=== PATIENT | female | born 1935 | race Caucasian/White ===

== ENCOUNTER → 2017-01-28 | Outpatient (CLI) | payer OTHER, MEDICAID ==
[2015-03-26 19:27] VITALS: BP 136/58
[2017-01-28 11:16] LABS: AMOUNT OF GLUCOSE 75 Grams; EDUCATION SHEET YES
== END ==
LOC: LAB 07:11
PROVIDERS: ATTEND Internal Medicine Cardiovascular Disease
DX: R42 Dizziness and giddiness (principal)
CPT/HCPCS: 36415; 82951; 82952

== ENCOUNTER → 2017-04-22 | Outpatient (CLI) | payer OTHER, MEDICAID ==
[2015-03-26 19:27] VITALS: BP 136/58
--- NOTE | 2017-04-25 16:19 | RAD ---
HISTORY: Dyspnea Study: PA and lateral views of the chest. Comparison: 03/26/2015 Findings: The cardiomediastinal silhouette is normal. No focal consolidations, pleural effusions or pneumothora x. Osseous structures demonstrate no acute abnormality. IMPRESSION: 1. No acute cardiopulmonary process. Reported By:
== END ==
LOC: RAD 11:51
PROVIDERS: ATTEND Nurse Practitioner Family
DX: R06.09 Other forms of dyspnea (principal)
CPT/HCPCS: 71020

== ENCOUNTER → 2017-08-25 | Outpatient (CLI) | payer OTHER, MEDICAID ==
[2015-03-26 19:27] VITALS: BP 136/58
--- NOTE | 2017-08-26 09:03 | MG ---
HISTORY: SCREENING Comparison: 06/02/2016 FINDINGS: Bilateral CC and MLO projections of the right and left breast were obtained. Scattered fibroglandula r tissue is seen to be present. There is stable right upper our nodular focal asymmetry with biopsy c lip. No significant architectural distortion, mass or clustered microcalcifications can be observed t o suggest malignancy. No skin thickening or nipple retraction is appreciated. No pathological lymp hadenopathy can be identified. Benign-appearing calcifications scattered throughout the right and lef t breasts are observed. IMPRESSION: NO RADIOGRAPHIC EVIDENCE OF MALIGNANCY. ACR CATEGORY: 2 - benign findings. FOLLOW-UP EXAM 1 YEAR. Diagnostic CAD was utilized and reviewed. * 0 (ZERO) - ASSESSMENT INCOMPLETE; ADDITIONAL IMAGING IS NEEDED. * 1/1 (ONE) - NEGATIVE. * 2/II (TWO) - BENIGN FINDINGS. * 3/III (THREE) - PROBABLY BENIGN FINDING; SHORT INTERVAL FOLLOW-UP SUGGESTED. * 4/IV (FOUR) - SUSPICIOUS ABNORMALITY; BIOPSY SHOULD BE CONSIDERED. * 5/V - HIGHLY SUSPICIOUS OF MALIGNANCY; BIOPSY SHOULD BE PERFORMED. A NEGATIVE X-RAY REPORT SHOULD NOT DELAY BIOPSY IF A DOMINANT OR CLINICALLY SUSPICIOUS MASS IS PRESENT; 4 TO 8 PERCENT OF CANCERS ARE NOT IDENTIFIED BY X-RAY. A NEGA TIVE REPORT MAY REINFORCE THE CLINICAL IMPRESSION. ADENOSIS AND DENSE BREASTS MAY OBSCURE AN UNDERLY ING NEOPLASM. Reported By:
== END ==
LOC: RAD 12:56
PROVIDERS: ATTEND Internal Medicine
DX: Z12.31 Encounter for screening mammogram for malignant neoplasm of breast (principal)
CPT/HCPCS: 77067

== ENCOUNTER 2022-01-22 14:56 | Observation (INO) ==
--- NOTE | 2022-01-22 17:51 | DR.H&P ---
H&P - History & Physical for Day of: H&P Date: 01/22/22 - Chief Complaint Chief Complaint: FALL LAST PM, CONFUSED, WEAKNESS REPORTED PER FAMILY - History of Present Illness History of Present Illness: PT 86 WF DIRECT ADMIT FROM DR MELENDEZ OFFICE WITH REPORTS PER FAMILY PT HAD A FALL LAST PM AT HOME. EMS WAS CONTACTED TO HELP PT UP. PT REFUSED TO GO TO HOSPITAL FOR EVALUATION. FAMILY REPORTS PT IS VERY CONFUSED, NOT EATING, REFUSING TO TAKE MEDICATION. "NOT ACTING RIGHT" PT HAD HAD INCONTINENCE OF BLADDER. PT HAS PMH OF AFIB, CAD, HTN, OA, HYPOTHYROIDISM. FAMILY IS CONCERNED ABOUT HER BEING HOME ALONE, CONCERNED SHE MAY HAVE HAD A STROKE. - Past Medical History Past Medical History: Anxiety, Arthritis, Coronary Artery Disease, Dyslipidemia, Hypertension, Hypothyroidism - Past Surgical History Surgical History: Hysterectomy - Family History Family Medical History: [place], Coronary Artery Disease, Heart Failure, Sudden Cardiac , Hypertension - Social History Does patient currently use any type of tobacco product: No Have you used tobacco products in the last 12 months: No Type of Tobacco Use: None Does any household member use tobacco: No Alcohol Use: None Drug Use: None Risks, benefits, and alternatives of opioids discussed: No - Medications Home Medications: amoxicillin Allergy (Verified 01/22/22 17:46) clarithromycin [From Biaxin] Allergy (Verified 01/22/22 17:46) - Review of Systems Constitutional: Weakness, Malaise Eyes: No Symptoms Reported ENT: No Symptoms Reported Respiratory: Shortness of Breath Cardiovascular: Edema Gastrointestinal: Other (POOR APPETITE) Genitourinary: Incontinence Musculoskeletal: Back Pain Neurological: Weakness, Confusion - Physical Exam Vital Signs: Blood Pressure [Right Arm] 136/58 Blood Pressure 173/84 Oriented: Person Eyes: Normal Ear: Normal Nose: Normal Throat: Normal Respiratory: RLL Diminished, LLL Diminished Cardiovascular: Irregular, Edema (TRACE BILATERAL LOWER EXTREMITY EDEMA) Tenderness: Normal Skin: Decreased Turgur Musculoskeletal: Right, Left, Back:Lumbar, Motor Deficit Psychiatric: Anxiety Affect: Anxious Speech Pattern: Clear, Appropriate, Inappropriate (REPORT BOTH APPROPRIATE AND INAPPROPRIATE RESPONSES ), Delayed - Assessment/Plan (1) AMS (altered mental status) Status: Acute Plan: ADMIT, CT HEAD ON ADMISSION. CXR, LSPINE XRAY, EKG ON ADMISSION. VERIFY HOME MEDICATION, PT/OT/ST EVALUATION. RESUME HOME MEDICATION. IV ATBX, IV HYDRATION, CASE MANAGEMENT CONSULT. HIGH RISK FALL ALERT, BP CONTROL (2) Urinary tract infection Status: Acute (3) A-fib Status: Acute (4) Falls frequently Status: Acute (5) Muscle weakness Status: Acute (6) Hypertension Status: Acute (7) Hypothyroid Status: Acute (8) Cervical arthritis Status: Acute - Allergies Allergies/Adverse Reactions: Allergies Allergy/AdvReac Type Severity Reaction Status Date / Time amoxicillin Allergy Verified 01/22/22 17:46 clarithromycin [From Biaxin] Allergy Verified 01/22/22 17:46
[2022-01-22 18:15] LABS: BASOPHILS # (AUTO) 0.1 X10^3/uL (0.0-0.1); BASOPHILS % (AUTO) 1.4 % (0.2-1.0); EOSINOPHILS % (AUTO) 0.1 % (0.9-2.9); HEMATOCRIT 37.2 % (36.0-47.0); HEMOGLOBIN 12.4 g/dL (12.0-16.0); LYMPHOCYTES # (AUTO) 1.4 X10^3/uL (1.3-2.9); MEAN CORPUSCULAR HEMOGLOBIN 28.7 pg (27.0-34.0); MEAN CORPUSCULAR HGB CONC 33.2 g/dL (33.0-35.0); MEAN CORPUSCULAR VOLUME 86.5 fL (80.0-100.0); MEAN PLATELET VOLUME 7.8 fL (7.4-11.0); MONOCYTES # (AUTO) 0.9 x10^3/uL (0.3-0.8); NEUTROPHILS % (AUTO) 46.5 % (42.0-75.0); RED CELL DISTRIBUTION WIDTH 14.8 % (11.6-16.5); WHITE BLOOD COUNT 4.4 X10^3/uL (3.6-10.0)
[2022-01-22 18:27] LABS: PLATELET MORPHOLOGY COMMENT NORMAL (NORMAL)
[2022-01-22 18:31] LABS: ALANINE AMINOTRANSFERASE 35 Units/L (12-78); ALBUMIN 3.9 g/dL (3.4-5.0); ALKALINE PHOSPHATASE 62 Units/L (46-116); ASPARTATE AMINO TRANSFERASE 39 Units/L (15-37); BLOOD UREA NITROGEN 18 mg/dL (7-18); CALCIUM 8.8 mg/dL (8.5-10.1); CARBON DIOXIDE 28.4 mmol/L (21-32); CHLORIDE 95 mmol/L (98-107); CREATININE 0.74 mg/dL (0.55-1.02); FREE T4 (FREE THYROXINE) 1.46 ng/dL (0.76-1.46); MAGNESIUM 1.9 mg/dL (1.7-2.9); SODIUM 134 mmol/L (136-145); TOTAL PROTEIN 7.7 g/dL (6.4-8.2); TSH (3RD GENERATION) 1.007 uIU/mL (0.358-3.74); eGFR NON BLACK RACES > 60 (>60)
--- NOTE | 2022-01-22 18:33 | CT ---
BRAIN W/O CONCLINICAL INDICATION: AMS, WEAKNESS, FALLSTECHNIQUE: Images were obtained through the head per standard CT protocol. Multiplanar reformatted images were generated from the CT dataset. Dose reduction techniques including Automated Exposure Control (AEC) and adjustment of mA and kV were utlized.COMPARISON:NoneFINDINGS:Diffuse patchy and confluent periventricular and subcortical hypoattenuation with associated volume loss . There is no evidence of acute infarction, intracranial hemorrhage, mass or mass effect, or abnormal extra-axial collection . The density of the larger dural venous sinuses is normal. Age-related, ex-vacuo dilatation of the ventricles and sulci . The skull base and calvarium are normal . The included paranasal sinuses and mastoid air cells are predominantly clear .IMPRESSION:1. No acute intracranial abnormality. Chronic microangiopathic changes and ex vacuo dilatation of the ventricles and sulci.[]Electronically signed by: KELI ARMENTA (Jan 22, 2022 18:31:59)
--- NOTE | 2022-01-22 18:45 | RAD ---
HISTORYFALL, LOWER BACK PAIN, LEG WEAKNESS Relevant Clinical InformationSTUDYLUMBAR SPINE, AP/LATCOMPARISONFINDINGSThere is approximately 20 degrees of levoscoliosis in the lumbar spine. There is right lateral ceases of L2 on L3 and left lateral listhesis of L3 on L4 and L4 on L5. There is grade 1 retrolisthesis of L3 on L4. There is no vertebral compression deformity. Disc degeneration is most severe at L2-L3 and L3-L4. There is multilevel facet hypertrophy. There is no pars defect. There is heavy atherosclerosis. There is SI joint sclerosis.IMPRESSIONLevoscoliosis, spondylolisthesis, and degeneration.Electronically signed by: Lencho Patel (Jan 22, 2022 18:43:28)
--- NOTE | 2022-01-22 18:48 | RAD ---
CHEST, 1 VIEWHISTORY: AMS, CAD, CHFStudy: AP view of the chest.Comparison:NoneFindings:The cardiomediastinal silhouette is normal. No focal consolidations, pleural effusions or pneumothorax. Osseous structures demonstrate no acute abnormality. Bilateral hyperexpansion and interstitial prominence.IMPRESSION:1. No acute cardiopulmonary process.2. Findings of COPD.Electronically signed by: KELI ARMENTA (Jan 22, 2022 18:47:19)
[2022-01-22] MEDS: ROCEPHIN VIAL 1 GRAM 1 G in NS 100 ML IV 100 ML IV SCH (21:33)
[2022-01-22] MEDS: ELIQUIS PO SCH (21:34)
[2022-01-22 22:56] VITALS: BMI 23.8
[2022-01-23] MEDS ORDERED: CATAPRES TAB 0.1 MG PO ONE (03:25)
[2022-01-23] MEDS ORDERED: CATAPRES TAB 0.1 MG ONE (03:31)
[2022-01-23 06:03] LABS: BASOPHILS % (AUTO) 0.4 % (0.2-1.0); HEMATOCRIT 33.2 % (36.0-47.0); HEMOGLOBIN 11.2 g/dL (12.0-16.0); LYMPHOCYTES % (AUTO) 35.5 % (21.0-51.0); MEAN CORPUSCULAR HEMOGLOBIN 29.1 pg (27.0-34.0); MEAN CORPUSCULAR HGB CONC 33.8 g/dL (33.0-35.0); MEAN CORPUSCULAR VOLUME 86.1 fL (80.0-100.0); MONOCYTES # (AUTO) 0.6 x10^3/uL (0.3-0.8); MONOCYTES % (AUTO) 21.7 % (0.0-13.0); NEUTROPHILS # (AUTO) 1.2 x10^3/uL (2.2-4.8); NEUTROPHILS % (AUTO) 42.4 % (42.0-75.0); RED BLOOD COUNT 3.85 X10^6/uL (3.5-5.4); RED CELL DISTRIBUTION WIDTH 15.1 % (11.6-16.5); WHITE BLOOD COUNT 2.8 X10^3/uL (3.6-10.0)
[2022-01-23] MEDS: SYNTHROID 112 mcg TAB PO SCH (06:04)
[2022-01-23 06:16] LABS: ALANINE AMINOTRANSFERASE 30 Units/L (12-78); ALBUMIN 3.3 g/dL (3.4-5.0); ALKALINE PHOSPHATASE 53 Units/L (46-116); ASPARTATE AMINO TRANSFERASE 39 Units/L (15-37); BLOOD UREA NITROGEN 16 mg/dL (7-18); CALCIUM 8.3 mg/dL (8.5-10.1); CARBON DIOXIDE 27.1 mmol/L (21-32); CHLORIDE 99 mmol/L (98-107); COR CA(FOR HYPOALB) 8.9 mg/dL (8.5-10.1); CREATININE 0.52 mg/dL (0.55-1.02); MAGNESIUM 1.7 mg/dL (1.7-2.9); SODIUM 136 mmol/L (136-145); TOTAL PROTEIN 6.6 g/dL (6.4-8.2); eGFR NON BLACK RACES > 60 (>60)
[2022-01-23 06:21] LABS: BILIRUBIN,URINE NEGATIVE (NEGATIVE); BLOOD/HEMOGLOBIN,URINE 2+ (NEGATIVE); GLUCOSE, URINE NEGATIVE (NEGATIVE); KETONES,URINE NEGATIVE (NEGATIVE); LEUKOCYTE ESTERASE ,URINE 1+ (NEGATIVE); NITRITES,URINE NEGATIVE (NEGATIVE); PROTEIN,URINE 1+ (NEGATIVE); UROBILINOGEN,URINE NORMAL (NORMAL)
[2022-01-23 06:35] LABS: BAND NEUTROPHILS % 6 % (0-10)
[2022-01-23 06:36] LABS: PLATELET MORPHOLOGY COMMENT NORMAL (NORMAL)
[2022-01-23] MEDS ORDERED: K-RIDER 10 MEQ/NS 100 ML 10 MEQ/100 ML BAG IV PRN (06:40)
[2022-01-23] MEDS ORDERED: KLOR-CON PO PRN (06:40)
[2022-01-23] MEDS ORDERED: POTASSIUM CHLORIDE LIQ 20 MEQ UDC PO PRN (06:40)
[2022-01-23] MEDS ORDERED: POTASSIUM CHL 40 MEQ/NS 0.45% 500 ML IV PRN (06:40)
[2022-01-23] MEDS ORDERED: MICRO K EXTEN CAP 10 MEQ PO PRN (06:40)
[2022-01-23] MEDS ORDERED: POTASSIUM CHL 60 MEQ/NS 0.45% 500 ML IV PRN (06:40)
[2022-01-23 06:48] LABS: APPEARANCE,URINE CLEAR (CLEAR); BACTERIA,URINE TRACE /HPF (NEGATIVE); COLOR,URINE YELLOW (YELLOW); RBC,URINE 0-2 /HPF (0-3); SQUAMOUS EPITHELIAL CELL,UR FEW /HPF (NEGATIVE)
[2022-01-23] MEDS: ELIQUIS PO SCH ×2 (08:36→21:22)
[2022-01-23] MEDS: K-DUR TAB 20 MEQ PO PRN (08:36)
[2022-01-23] MEDS: TOPROL XL PO SCH (08:36)
[2022-01-23] MEDS: BENICAR TAB 40 MG PO SCH (08:36)
[2022-01-23] MEDS: ROCEPHIN VIAL 1 GRAM 1 G in NS 100 ML IV 100 ML IV SCH (08:37)
[2022-01-23] MEDS ORDERED: TYLENOL 325 MG TAB PO PRN (18:35)
[2022-01-24 05:22] LABS: BASOPHILS % (AUTO) 0.4 % (0.2-1.0); EOSINOPHILS % (AUTO) 0.2 % (0.9-2.9); HEMATOCRIT 35.2 % (36.0-47.0); HEMOGLOBIN 11.9 g/dL (12.0-16.0); LYMPHOCYTES # (AUTO) 1.7 X10^3/uL (1.3-2.9); LYMPHOCYTES % (AUTO) 40.7 % (21.0-51.0); MEAN CORPUSCULAR HEMOGLOBIN 28.9 pg (27.0-34.0); MEAN CORPUSCULAR HGB CONC 33.7 g/dL (33.0-35.0); MEAN CORPUSCULAR VOLUME 85.5 fL (80.0-100.0); MEAN PLATELET VOLUME 8.1 fL (7.4-11.0); MONOCYTES # (AUTO) 0.7 x10^3/uL (0.3-0.8); MONOCYTES % (AUTO) 15.8 % (0.0-13.0); NEUTROPHILS # (AUTO) 1.8 x10^3/uL (2.2-4.8); NEUTROPHILS % (AUTO) 42.9 % (42.0-75.0); RED BLOOD COUNT 4.11 X10^6/uL (3.5-5.4); RED CELL DISTRIBUTION WIDTH 14.8 % (11.6-16.5); WHITE BLOOD COUNT 4.2 X10^3/uL (3.6-10.0)
[2022-01-24 05:44] LABS: ALANINE AMINOTRANSFERASE 34 Units/L (12-78); ALBUMIN 3.4 g/dL (3.4-5.0); ALKALINE PHOSPHATASE 52 Units/L (46-116); ASPARTATE AMINO TRANSFERASE 40 Units/L (15-37); BLOOD UREA NITROGEN 15 mg/dL (7-18); CALCIUM 8.2 mg/dL (8.5-10.1); CARBON DIOXIDE 27.1 mmol/L (21-32); CHLORIDE 99 mmol/L (98-107); CREATININE 0.64 mg/dL (0.55-1.02); MAGNESIUM 1.6 mg/dL (1.7-2.9); SODIUM 134 mmol/L (136-145); TOTAL PROTEIN 6.7 g/dL (6.4-8.2); eGFR NON BLACK RACES > 60 (>60)
[2022-01-24] MEDS: SYNTHROID 112 mcg TAB PO SCH (06:28)
[2022-01-24] MEDS: K-DUR TAB 20 MEQ PO PRN (06:29)
[2022-01-24] MEDS ORDERED: NS 100 ML IV 100 ML ONE (07:43)
[2022-01-24] MEDS: ELIQUIS PO SCH ×2 (07:59→21:02)
[2022-01-24] MEDS: TOPROL XL PO SCH (07:59)
[2022-01-24] MEDS: ROCEPHIN VIAL 1 GRAM 1 G in NS 100 ML IV 100 ML IV SCH (07:59)
[2022-01-24] MEDS: BENICAR TAB 40 MG PO SCH (07:59)
[2022-01-24] MEDS: MAGNESIUM SULFATE 1 GRAM/100 mL PREMIX 1 G/100 ML BAG IV PRN ×2 (08:28→11:01)
--- NOTE | 2022-01-24 11:30 | PCM.PROG ---
Progress Note Progress Note for Day of Date of Exam: 01/24/22 Subjective Subjective: Patient seen at bedside, no events overnight. She states she feels better. She has been admitted for UTI, falls and AMS. Patient is awake and alert this morning. She has been ambulating with assistance. Denies N/V/D. Labs/imaging reviewed: Mag 1.[address]-brain: chronic changes, no acute process CXR: no infection Lumbar XR: DDD Plan: continue Rocephin, PT/OT as tolerated. Replace mag as per protocol. Continue current medications. Follow urine Cx. Fall precautions. Check anemia panel. Monitor AM labs/imaging. Past Medical Family Social History Allergies: Allergies amoxicillin Allergy (Verified 01/22/22 17:46) clarithromycin [From Biaxin] Allergy (Verified 01/22/22 17:46) Vital Signs and I&O's Vital Signs: Temperature 98.2 F Pulse Rate [Left Radial] 79 Respiratory Rate 18 Blood Pressure [Right Arm] 131/75 Blood Pressure 173/84 O2 Sat by Pulse Oximetry 97 Intake and Output: Intake & Output 01/21/22 01/22/22 01/23/22 01/24/22 23:59 23:59 23:59 23:59 Intake Total 350 / 350 1300 / 1300 150 / 150 Balance 350 / 350 1300 / 1300 150 / 150 Physical Exam Oriented: Person Eyes: Normal Ear: Normal Nose: Normal Throat: Normal Cardiovascular: Irregular and Edema (TRACE BILATERAL LOWER EXTREMITY EDEMA) Tenderness: Normal Skin: Decreased Turgur Musculoskeletal: Right, Left, Back:Lumbar and Motor Deficit Psychiatric: Normal Mood Description: Calm Affect: Normal Speech Pattern: Clear Laboratory and Diagnostics Result Diagrams: 01/24/22 04:50 01/24/22 04:50 Labs: Laboratory WBC 4.2 X10^3/uL (3.6-10.0) 01/24/22 04:50 RBC 4.11 X10^6/uL (3.5-5.4) 01/24/22 04:50 Hgb 11.9 g/dL (12.0-16.0) L 01/24/22 04:50 Hct 35.2 % (36.0-47.0) L 01/24/22 04:50 MCV 85.5 fL (80.0-100.0) 01/24/22 04:50 MCH 28.9 pg (27.0-34.0) 01/24/22 04:50 MCHC 33.7 g/dL (33.0-35.0) 01/24/22 04:50 RDW 14.8 % (11.6-16.5) 01/24/22 04:50 Plt Count 263 X10^3/uL (150.0-450.0) 01/24/22 04:50 Plt Count Comment Adequate (ADEQUATE) 01/23/22 05:00 MPV 8.1 fL (7.4-11.0) 01/24/22 04:50 Neut % (Auto) 42.9 % (42.0-75.0) 01/24/22 04:50 Lymph % (Auto) 40.7 % (21.0-51.0) 01/24/22 04:50 [place] % (Auto) 15.8 % (0.0-13.0) H 01/24/22 04:50 Eos % (Auto) 0.2 % (0.9-2.9) L 01/24/22 04:50 Baso % (Auto) 0.4 % (0.2-1.0) 01/24/22 04:50 Neut # (Auto) 1.8 x10^3/uL (2.2-4.8) L 01/24/22 04:50 Lymph # (Auto) 1.7 X10^3/uL (1.3-2.9) 01/24/22 04:50 [place] # (Auto) 0.7 x10^3/uL (0.3-0.8) 01/24/22 04:50 Eos # (Auto) 0.0 x10^3/uL (0.0-0.2) 01/24/22 04:50 Baso # (Auto) 0.0 X10^3/uL (0.0-0.1) 01/24/22 04:50 Absolute Nucleated RBC 0.1 /100WBC 01/24/22 04:50 Total Counted 100 01/23/22 05:00 Neutrophils % (Manual) 43 % (39-76) 01/23/22 05:00 Band Neutrophils % 6 % (0-10) 01/23/22 05:00 Lymphocytes % (Manual) 29 % (13-43) 01/23/22 05:00 Monocytes % (Manual) 22 % (4-9) H 01/23/22 05:00 Plt Morphology Comment Normal (NORMAL) 01/23/22 05:00 RBC Morphology Normal (NORMAL) 01/23/22 05:00 PT 15.5 SECONDS (11.8-14.3) 01/22/22 17:57 INR Target Range - 01/22/22 17:57 INR 1.27 (0.8-1.3) 01/22/22 17:57 Sodium 134 mmol/L (136-145) L 01/24/22 04:50 Corrected Sodium TNP 01/24/22 04:50 Potassium 3.8 mmol/L (3.5-5.1) 01/24/22 04:50 Chloride 99 mmol/L (98-107) 01/24/22 04:50 Carbon Dioxide 27.1 mmol/L (21-32) 01/24/22 04:50 BUN 15 mg/dL (7-18) 01/24/22 04:50 Creatinine 0.64 mg/dL (0.55-1.02) 01/24/22 04:50 Est GFR (MDRD) Af Amer > 60 (>60) 01/24/22 04:50 Est GFR (MDRD) Non-Af > 60 (>60) 01/24/22 04:50 Glucose 91 mg/dL (65-99) 01/24/22 04:50 Calcium 8.2 mg/dL (8.5-10.1) L 01/24/22 04:50 Corrected Calcium TNP 01/24/22 04:50 Magnesium 1.6 mg/dL (1.7-2.9) L 01/24/22 04:50 Total Bilirubin 0.30 mg/dL (0.2-1.0) 01/24/22 04:50 AST 40 Units/L (15-37) H 01/24/22 04:50 ALT 34 Units/L (12-78) 01/24/22 04:50 Alkaline Phosphatase 52 Units/L (46-116) 01/24/22 04:50 Total Protein 6.7 g/dL (6.4-8.2) 01/24/22 04:50 Albumin 3.4 g/dL (3.4-5.0) 01/24/22 04:50 Globulin 3.3 g/dL (2.5-4.5) 01/24/22 04:50 Albumin/Globulin Ratio 1.0 Ratio (1.1-2.1) L 01/24/22 04:50 Free T4 1.46 ng/dL (0.76-1.46) 01/22/22 17:57 TSH 3rd Generation 1.007 uIU/mL (0.358-3.74) 01/22/22 17:57 Specimen Type Clean catch urine 01/23/22 06:00 Urine Color Yellow (YELLOW) 01/23/22 06:00 Urine Appearance Clear (CLEAR) 01/23/22 06:00 Urine pH 6.0 (5.0 - 8.0) 01/23/22 06:00 Ur Specific [place] 1.015 (1.000-1.030) 01/23/22 06:00 Urine Protein 1+ (NEGATIVE) 01/23/22 06:00 Urine Glucose (UA) Negative (NEGATIVE) 01/23/22 06:00 Urine Ketones Negative (NEGATIVE) 01/23/22 06:00 Urine Blood 2+ (NEGATIVE) 01/23/22 06:00 Urine Nitrite Negative (NEGATIVE) 01/23/22 06:00 Urine Bilirubin Negative (NEGATIVE) 01/23/22 06:00 Urine Urobilinogen Normal (NORMAL) 01/23/22 06:00 Ur Leukocyte Esterase 1+ (NEGATIVE) 01/23/22 06:00 Urine RBC 0-2 /HPF (0-3) 01/23/22 06:00 Urine WBC 0-2 /HPF (0-5) 01/23/22 06:00 Ur Squamous Epith Cells Few /HPF (NEGATIVE) 01/23/22 06:00 Urine Bacteria Trace /HPF (NEGATIVE) 01/23/22 06:00 Urine Mucus Few /HPF (NEGATIVE) 01/23/22 06:00 Ur Culture Indicated? Yes/culture set up 01/23/22 06:00 Urine Opiates Screen Negative (NEG=<300) 01/23/22 06:00 Urine Methadone Screen Negative (NEG=<300) 01/23/22 06:00 Ur Barbiturates Screen Negative (NEG=<200) 01/23/22 06:00 Ur Phencyclidine Scrn Negative (NEG=<25) 01/23/22 06:00 Ur Amphetamines Screen Negative (NEG=<1000) 01/23/22 06:00 U Benzodiazepines Scrn Negative (NEG=<200) 01/23/22 06:00 Urine Cocaine Screen Negative (NEG=<300) 01/23/22 06:00 U Marijuana (THC) Screen Negative (NEG=<50) 01/23/22 06:00 Plan (1) AMS (altered mental status): Status: Acute (2) Urinary tract infection: Status: Acute (3) A-fib: Status: Acute (4) Hypomagnesemia: Status: Acute (5) Hyponatremia: Status: Active (6) Dehydration: Status: Active (7) Anemia: Status: Acute (8) Falls frequently: Status: Acute (9) Muscle weakness: Status: Acute (10) Hypertension: Status: Acute (11) Hypothyroid: Status: Acute (12) Cervical arthritis: Status: Acute (13) CAD (coronary artery disease): Status: Acute
[2022-01-24 12:19] LABS: IRON 41 ug/dL (50-175)
[2022-01-25 05:11] LABS: BLOOD UREA NITROGEN 13 mg/dL (7-18); CALCIUM 8.1 mg/dL (8.5-10.1); CARBON DIOXIDE 28.3 mmol/L (21-32); CHLORIDE 98 mmol/L (98-107); CREATININE 0.58 mg/dL (0.55-1.02); SODIUM 134 mmol/L (136-145); eGFR NON BLACK RACES > 60 (>60)
[2022-01-25 05:13] LABS: BASOPHILS % (AUTO) 0.5 % (0.2-1.0); EOSINOPHILS % (AUTO) 0.5 % (0.9-2.9); HEMATOCRIT 32.4 % (36.0-47.0); HEMOGLOBIN 10.9 g/dL (12.0-16.0); LYMPHOCYTES # (AUTO) 1.4 X10^3/uL (1.3-2.9); LYMPHOCYTES % (AUTO) 41.6 % (21.0-51.0); MEAN CORPUSCULAR HEMOGLOBIN 28.8 pg (27.0-34.0); MEAN CORPUSCULAR HGB CONC 33.6 g/dL (33.0-35.0); MEAN CORPUSCULAR VOLUME 85.8 fL (80.0-100.0); MONOCYTES # (AUTO) 0.5 x10^3/uL (0.3-0.8); MONOCYTES % (AUTO) 15.2 % (0.0-13.0); NEUTROPHILS # (AUTO) 1.4 x10^3/uL (2.2-4.8); NEUTROPHILS % (AUTO) 42.2 % (42.0-75.0); RED BLOOD COUNT 3.78 X10^6/uL (3.5-5.4); RED CELL DISTRIBUTION WIDTH 15.1 % (11.6-16.5); WHITE BLOOD COUNT 3.4 X10^3/uL (3.6-10.0)
[2022-01-25] MEDS: SYNTHROID 112 mcg TAB PO SCH (06:06)
[2022-01-25] MEDS: K-DUR TAB 20 MEQ PO PRN (06:07)
[2022-01-25] MEDS: MAGNESIUM SULFATE 1 GRAM/100 mL PREMIX 1 G/100 ML BAG IV PRN ×2 (06:07→09:44)
[2022-01-25] MEDS: BENICAR TAB 40 MG PO SCH (08:28)
[2022-01-25] MEDS: TOPROL XL PO SCH (08:28)
[2022-01-25] MEDS: ELIQUIS PO SCH ×2 (08:28→19:59)
[2022-01-25] MEDS: ROCEPHIN VIAL 1 GRAM 1 G in NS 100 ML IV 100 ML IV SCH (09:07)
--- NOTE | 2022-01-25 11:16 | PCM.PROG ---
Progress Note Progress Note for Day of Date of Exam: 01/25/22 Subjective Subjective: Patient seen at bedside, no events overnight. She states she feels better. Patient's daughter tested positive for COVID so patient was swabbed yesterday and also tested positive. Denies any URI symptoms, no N/V/D. She states she feels ok. She has been admitted for UTI, falls and AMS. Patient is awake and alert this morning. She has been ambulating with assistance. Labs/imaging reviewed: Mag 1.8 Hgb 10.9 COVID-19: positive CT-brain: chronic changes, no acute process CXR: no infection Lumbar XR: DDD Urine Cx: no growth Plan: continue Rocephin, PT/OT as tolerated. Continue supportive care for covid infection, isolation protocol. Continue current medications. Follow urine Cx. Fall precautions. Monitor AM labs/imaging. Past Medical Family Social History Allergies: Allergies amoxicillin Allergy (Verified 01/22/22 17:46) clarithromycin [From Biaxin] Allergy (Verified 01/22/22 17:46) Vital Signs and I&O's Vital Signs: Temperature 98.0 F Pulse Rate [Left Radial] 64 Respiratory Rate 20 Blood Pressure [Right Arm] 165/71 Blood Pressure 173/84 O2 Sat by Pulse Oximetry 97 Intake and Output: Intake & Output 01/22/22 01/23/22 01/24/22 01/25/22 23:59 23:59 23:59 23:59 Intake Total 350 / 350 1300 / 1300 1700 / 1700 500 / 500 Balance 350 / 350 1300 / 1300 1700 / 1700 500 / 500 Physical Exam Oriented: Person Eyes: Normal Ear: Normal Nose: Normal Throat: Normal Cardiovascular: Irregular and Edema (TRACE BILATERAL LOWER EXTREMITY EDEMA) Tenderness: Normal Skin: Decreased Turgur Musculoskeletal: Right, Left, Back:Lumbar and Motor Deficit Psychiatric: Normal Mood Description: Calm Affect: Normal Speech Pattern: Clear Laboratory and Diagnostics Result Diagrams: 01/25/22 03:51 01/25/22 03:51 Labs: 01/24/22 15:00 Urine,Clean Catch Urine Culture - Preliminary Laboratory WBC 3.4 X10^3/uL (3.6-10.0) L 01/25/22 03:51 RBC 3.78 X10^6/uL (3.5-5.4) 01/25/22 03:51 Hgb 10.9 g/dL (12.0-16.0) L 01/25/22 03:51 Hct 32.4 % (36.0-47.0) L 01/25/22 03:51 MCV 85.8 fL (80.0-100.0) 01/25/22 03:51 MCH 28.8 pg (27.0-34.0) 01/25/22 03:51 MCHC 33.6 g/dL (33.0-35.0) 01/25/22 03:51 RDW 15.1 % (11.6-16.5) 01/25/22 03:51 Plt Count 243 X10^3/uL (150.0-450.0) 01/25/22 03:51 Plt Count Comment Adequate (ADEQUATE) 01/23/22 05:00 MPV 8.0 fL (7.4-11.0) 01/25/22 03:51 Neut % (Auto) 42.2 % (42.0-75.0) 01/25/22 03:51 Lymph % (Auto) 41.6 % (21.0-51.0) 01/25/22 03:51 [place] % (Auto) 15.2 % (0.0-13.0) H 01/25/22 03:51 Eos % (Auto) 0.5 % (0.9-2.9) L 01/25/22 03:51 Baso % (Auto) 0.5 % (0.2-1.0) 01/25/22 03:51 Neut # (Auto) 1.4 x10^3/uL (2.2-4.8) L 01/25/22 03:51 Lymph # (Auto) 1.4 X10^3/uL (1.3-2.9) 01/25/22 03:51 [place] # (Auto) 0.5 x10^3/uL (0.3-0.8) 01/25/22 03:51 Eos # (Auto) 0.0 x10^3/uL (0.0-0.2) 01/25/22 03:51 Baso # (Auto) 0.0 X10^3/uL (0.0-0.1) 01/25/22 03:51 Absolute Nucleated RBC 0.1 /100WBC 01/25/22 03:51 Total Counted 100 01/23/22 05:00 Neutrophils % (Manual) 43 % (39-76) 01/23/22 05:00 Band Neutrophils % 6 % (0-10) 01/23/22 05:00 Lymphocytes % (Manual) 29 % (13-43) 01/23/22 05:00 Monocytes % (Manual) 22 % (4-9) H 01/23/22 05:00 Plt Morphology Comment Normal (NORMAL) 01/23/22 05:00 RBC Morphology Normal (NORMAL) 01/23/22 05:00 PT 15.5 SECONDS (11.8-14.3) 01/22/22 17:57 INR Target Range - 01/22/22 17:57 INR 1.27 (0.8-1.3) 01/22/22 17:57 Sodium 134 mmol/L (136-145) L 01/25/22 03:51 Corrected Sodium TNP 01/25/22 03:51 Potassium 3.7 mmol/L (3.5-5.1) 01/25/22 03:51 Chloride 98 mmol/L (98-107) 01/25/22 03:51 Carbon Dioxide 28.3 mmol/L (21-32) 01/25/22 03:51 BUN 13 mg/dL (7-18) 01/25/22 03:51 Creatinine 0.58 mg/dL (0.55-1.02) 01/25/22 03:51 Est GFR (MDRD) Af Amer > 60 (>60) 01/25/22 03:51 Est GFR (MDRD) Non-Af > 60 (>60) 01/25/22 03:51 Glucose 80 mg/dL (65-99) 01/25/22 03:51 Calcium 8.1 mg/dL (8.5-10.1) L 01/25/22 03:51 Corrected Calcium TNP 01/24/22 04:50 Magnesium 1.8 mg/dL (1.7-2.9) 01/25/22 03:51 Iron 41 ug/dL (50-175) L 01/24/22 04:50 Transferrin 226 mg/dL (202-364) 01/24/22 04:50 Ferritin 216 ng/mL (8-252) 01/24/22 04:50 Total Bilirubin 0.30 mg/dL (0.2-1.0) 01/24/22 04:50 AST 40 Units/L (15-37) H 01/24/22 04:50 ALT 34 Units/L (12-78) 01/24/22 04:50 Alkaline Phosphatase 52 Units/L (46-116) 01/24/22 04:50 Total Protein 6.7 g/dL (6.4-8.2) 01/24/22 04:50 Albumin 3.4 g/dL (3.4-5.0) 01/24/22 04:50 Globulin 3.3 g/dL (2.5-4.5) 01/24/22 04:50 Albumin/Globulin Ratio 1.0 Ratio (1.1-2.1) L 01/24/22 04:50 Vitamin B12 1329 pg/mL (193-986) H 01/24/22 04:50 Folate > 20.0 ng/mL (>8.6) 01/24/22 04:50 Free T4 1.46 ng/dL (0.76-1.46) 01/22/22 17:57 TSH 3rd Generation 1.007 uIU/mL (0.358-3.74) 01/22/22 17:57 Specimen Type Clean catch urine 01/23/22 06:00 Urine Color Yellow (YELLOW) 01/23/22 06:00 Urine Appearance Clear (CLEAR) 01/23/22 06:00 Urine pH 6.0 (5.0 - 8.0) 01/23/22 06:00 Ur Specific [place] 1.015 (1.000-1.030) 01/23/22 06:00 Urine Protein 1+ (NEGATIVE) 01/23/22 06:00 Urine Glucose (UA) Negative (NEGATIVE) 01/23/22 06:00 Urine Ketones Negative (NEGATIVE) 01/23/22 06:00 Urine Blood 2+ (NEGATIVE) 01/23/22 06:00 Urine Nitrite Negative (NEGATIVE) 01/23/22 06:00 Urine Bilirubin Negative (NEGATIVE) 01/23/22 06:00 Urine Urobilinogen Normal (NORMAL) 01/23/22 06:00 Ur Leukocyte Esterase 1+ (NEGATIVE) 01/23/22 06:00 Urine RBC 0-2 /HPF (0-3) 01/23/22 06:00 Urine WBC 0-2 /HPF (0-5) 01/23/22 06:00 Ur Squamous Epith Cells Few /HPF (NEGATIVE) 01/23/22 06:00 Urine Bacteria Trace /HPF (NEGATIVE) 01/23/22 06:00 Urine Mucus Few /HPF (NEGATIVE) 01/23/22 06:00 Ur Culture Indicated? Yes/culture set up 01/23/22 06:00 Urine Opiates Screen Negative (NEG=<300) 01/23/22 06:00 Urine Methadone Screen Negative (NEG=<300) 01/23/22 06:00 Ur Barbiturates Screen Negative (NEG=<200) 01/23/22 06:00 Ur Phencyclidine Scrn Negative (NEG=<25) 01/23/22 06:00 Ur Amphetamines Screen Negative (NEG=<1000) 01/23/22 06:00 U Benzodiazepines Scrn Negative (NEG=<200) 01/23/22 06:00 Urine Cocaine Screen Negative (NEG=<300) 01/23/22 06:00 U Marijuana (THC) Screen Negative (NEG=<50) 01/23/22 06:00 SARS-CoV-2 (PCR) Positive (NEGATIVE) A 01/24/22 16:45 Plan (1) AMS (altered mental status): Status: Acute (2) COVID-19: Status: Acute (3) Urinary tract infection: Status: Acute (4) A-fib: Status: Acute (5) Hypomagnesemia: Status: Acute (6) Hyponatremia: Status: Active (7) Dehydration: Status: Active (8) Anemia: Status: Acute (9) Falls frequently: Status: Acute (10) Muscle weakness: Status: Acute (11) Hypertension: Status: Acute (12) Hypothyroid: Status: Acute (13) Cervical arthritis: Status: Acute (14) CAD (coronary artery disease): Status: Acute
[2022-01-26 04:38] LABS: BASOPHILS % (AUTO) 0.6 % (0.2-1.0); EOSINOPHILS % (AUTO) 0.3 % (0.9-2.9); HEMATOCRIT 33.7 % (36.0-47.0); HEMOGLOBIN 11.2 g/dL (12.0-16.0); LYMPHOCYTES # (AUTO) 1.5 X10^3/uL (1.3-2.9); LYMPHOCYTES % (AUTO) 33.8 % (21.0-51.0); MEAN CORPUSCULAR HEMOGLOBIN 28.5 pg (27.0-34.0); MEAN CORPUSCULAR HGB CONC 33.3 g/dL (33.0-35.0); MEAN CORPUSCULAR VOLUME 85.6 fL (80.0-100.0); MEAN PLATELET VOLUME 8.3 fL (7.4-11.0); MONOCYTES # (AUTO) 0.6 x10^3/uL (0.3-0.8); MONOCYTES % (AUTO) 12.5 % (0.0-13.0); NEUTROPHILS # (AUTO) 2.4 x10^3/uL (2.2-4.8); NEUTROPHILS % (AUTO) 52.8 % (42.0-75.0); RED BLOOD COUNT 3.93 X10^6/uL (3.5-5.4); RED CELL DISTRIBUTION WIDTH 14.9 % (11.6-16.5); WHITE BLOOD COUNT 4.5 X10^3/uL (3.6-10.0)
[2022-01-26 04:41] LABS: BLOOD UREA NITROGEN 12 mg/dL (7-18); CALCIUM 8.4 mg/dL (8.5-10.1); CARBON DIOXIDE 27.4 mmol/L (21-32); CHLORIDE 97 mmol/L (98-107); CREATININE 0.49 mg/dL (0.55-1.02); SODIUM 132 mmol/L (136-145); eGFR NON BLACK RACES > 60 (>60)
[2022-01-26] MEDS: SYNTHROID 112 mcg TAB PO SCH (05:34)
[2022-01-26] MEDS: TOPROL XL PO SCH (09:26)
[2022-01-26] MEDS: ROCEPHIN VIAL 1 GRAM 1 G in NS 100 ML IV 100 ML IV SCH (09:26)
[2022-01-26] MEDS: BENICAR TAB 40 MG PO SCH (09:26)
[2022-01-26] MEDS: ELIQUIS PO SCH ×2 (09:26→20:57)
[2022-01-26] MEDS ORDERED: REMDESIVIR 200 MG in NS 250 ML IV 250 ML IV NR (16:40)
[2022-01-26] MEDS ORDERED: NS 500 ML IV 500 ML IV ONE (17:14)
[2022-01-26] MEDS ORDERED: MILK OF MAGNESIA PO PRN (20:10)
[2022-01-26] MEDS ORDERED: COLACE CAP 100 MG PO PRN (20:10)
[2022-01-27] MEDS: SYNTHROID 112 mcg TAB PO SCH (05:43)
--- NOTE | 2022-01-27 06:05 | RAD ---
HISTORYCOVID-19STUDYChest AP [id number] heart is mildly enlarged. No congestive heart failure is noted. Brynn are normal. Aorta is calcified. Lung patel are clear. No pleural effusions or pneumothoraces identified. Bony thorax is unremarkable.IMPRESSIONMild cardiomegaly without congestive heart failureNo definite infiltratesElectronically signed by: OSVALDO GASTON (Jan 27, 2022 06:04:18)
[2022-01-27 06:16] LABS: BASOPHILS % (AUTO) 0.4 % (0.2-1.0); EOSINOPHILS % (AUTO) 0.4 % (0.9-2.9); HEMATOCRIT 34.7 % (36.0-47.0); HEMOGLOBIN 11.8 g/dL (12.0-16.0); LYMPHOCYTES # (AUTO) 1.6 X10^3/uL (1.3-2.9); LYMPHOCYTES % (AUTO) 36.2 % (21.0-51.0); MEAN CORPUSCULAR HEMOGLOBIN 29.1 pg (27.0-34.0); MEAN CORPUSCULAR HGB CONC 33.8 g/dL (33.0-35.0); MEAN CORPUSCULAR VOLUME 85.9 fL (80.0-100.0); MEAN PLATELET VOLUME 8.1 fL (7.4-11.0); MONOCYTES # (AUTO) 0.7 x10^3/uL (0.3-0.8); MONOCYTES % (AUTO) 15.6 % (0.0-13.0); NEUTROPHILS % (AUTO) 47.4 % (42.0-75.0); RED BLOOD COUNT 4.04 X10^6/uL (3.5-5.4); RED CELL DISTRIBUTION WIDTH 14.7 % (11.6-16.5); WHITE BLOOD COUNT 4.3 X10^3/uL (3.6-10.0)
[2022-01-27 06:28] LABS: ALANINE AMINOTRANSFERASE 34 Units/L (12-78); ALBUMIN 3.2 g/dL (3.4-5.0); ALKALINE PHOSPHATASE 52 Units/L (46-116); ASPARTATE AMINO TRANSFERASE 36 Units/L (15-37); BLOOD UREA NITROGEN 10 mg/dL (7-18); CALCIUM 8.4 mg/dL (8.5-10.1); CARBON DIOXIDE 26.4 mmol/L (21-32); CHLORIDE 99 mmol/L (98-107); CREATININE 0.47 mg/dL (0.55-1.02); SODIUM 132 mmol/L (136-145); TOTAL PROTEIN 6.5 g/dL (6.4-8.2); eGFR NON BLACK RACES > 60 (>60)
[2022-01-27] MEDS ORDERED: REMDESIVIR 100 MG in NS 250 ML IV 250 ML IV SCH (09:00)
[2022-01-27] MEDS: ROCEPHIN VIAL 1 GRAM 1 G in NS 100 ML IV 100 ML IV SCH (09:37)
[2022-01-27] MEDS: ELIQUIS PO SCH (10:17)
[2022-01-27] MEDS: BENICAR TAB 40 MG PO SCH (10:18)
[2022-01-27] MEDS: TOPROL XL PO SCH (10:18)
[2022-01-27 12:15] VITALS: BP 148/68
== END 2022-01-27 15:00 | disposition home or self-care (01) ==
LOC: MED/SURG
PROVIDERS: ADMIT Internal Medicine; ATTEND Internal Medicine

== ENCOUNTER 2022-09-11 13:06 | Inpatient (IN) ==
--- NOTE | 2022-09-11 13:41 | DR.AMS ---
HPI Time Seen Time Seen by Provider: 09/11/22 13:39 PCP Primary Care Physician: MELENDEZ Complaint Cheif Complaint Doctors Comments: CONFUSION WITH WEAKNESS. WAS SEEN IN ER YESTERDAY FOR SIMULAR SYMPTOMS.SENT HOME WITH DEHYDRATION. Chief Complaint:: PT TO ER PER EMS. EMS STATES THAT PT FAMILY SAYS THAT PT WAS SEEN HERE YESTERDAY FOR SAME COMPLAINT OF CONFUSION AND HAS EXTREME WEAKNESS. PT STATES THAT SHE REMEMBERS BEING HERE YESTERDAY AND SHE STILL JUST FEELS BAD AND HER BILATERAL LEGS HURT WHEN SHE TRIES TO GET UP. COVID-19 Coronavirus risk:travel/contact w/high risk person: No Has patient experienced Coronavirus symptoms: No Source History Provided: Patient, Family Member and EMS Mode of Arrival Mode of Arrival: EMS Timing Onset of Chief Complaint: 09/09/22 PMH PMH Past Medical History: Yes Past Medical History: Anxiety, Arthritis, Coronary Artery Disease, Dementia, Dyslipidemia, Hypertension and Hypothyroidism Past Surgical History: Yes Surgical History: Hysterectomy and Other Family History History of Family Medical Conditions: Yes Family Medical History: Cancer and Coronary Artery Disease Social History Do you use any recreational Drugs:: No Lives With: Family Lives Where: Home Travel Risk Coronavirus risk:travel/contact w/high risk person: No Has patient experienced Coronavirus symptoms: No Infectious screening In the last 2 months have you had wt loss of >10#?: NO Have you had fever, night sweats or hemotysis?: No Have you traveled outside the country in the last 6 months?: No Isolation: Standard ROS Review of Systems Constitutional: Other (CONFUSION,LOSS OF BALANCE,WEAKNESS) Eyes: No Symptoms Reported ENTM: No Symptoms Reported Respiratoy: No Symptoms Reported Cardiovascular: No Symptoms Reported Gastrointestinal/Abdominal: No Symptoms Reported Genitourinary: No Symptoms Reported Neurological: No Symptoms Reported Musculoskeletal: Muscle Stiffness and Other (MUSCLE WEAKNESS) Integumentary: No Symptoms Reported Hematologic/Lymphatic: No Symptoms Reported Endocrine: No Symptoms Reported Psychiatric: No Symptoms Reported PE Vitals Vital Signs: Temp Pulse Resp BP BP Pulse Ox O2 Del Method 09/11/22 20:00 61 90 L 09/11/22 19:46 163/85 09/11/22 19:45 93 L 09/11/22 20:00 18 151/72 95 Room Air 09/11/22 17:30 73 94 L 09/11/22 17:30 149/70 09/11/22 17:15 65 96 09/11/22 17:00 67 96 09/11/22 17:00 129/68 09/11/22 16:45 64 96 09/11/22 16:31 74 96 09/11/22 16:31 150/67 09/11/22 16:30 81 96 09/11/22 16:15 72 99 09/11/22 16:01 71 95 09/11/22 16:01 179/85 09/11/22 16:00 69 91 L 09/11/22 15:45 68 95 09/11/22 15:30 67 96 09/11/22 15:30 183/138 09/11/22 15:23 215 H 72 L 09/11/22 15:00 187/74 09/11/22 14:21 76 18 175/79 97 Room Air 09/11/22 13:06 98.4 F 78 19 195/78 99 Room Air 09/10/22 18:43 187/81 General Limitations: Physical Limitation (DUE TO WEAKNESS IN LEGS UNABLE TO AMBULATE WITHOUT ASSISTANCE) General Appearance: In Distress (MILD DISTRESS) Head Head Exam: Normal Inspection, Atraumatic and Normocephalic Eyes Eye exam: Normal Appearance, PERRL and EOMI ENT ENT Exam: Normal Exam, Normal Oropharynx and Normal External Ear Exam External Ear Exam: Normal External Inspection TM/Canal Exam: Bilateral: Normal Nose Exam: Normal Nose Exam Mouth Exam: Normal Inspection Throat Exam: Normal Inspection Neck Neck Exam: Normal Inspection Chest Chest Inspection: Normal Inspection and Symmetric Chest Wall Rise Respiratory Respiratory Exam: Normal Lung Sounds Bilat Respiratory Exam: Bilateral: Clear to Auscultation Cardiovascular Cardiovascular Exam: Regular Rate and Normal Rhythm Abdominal Exam Abdominal Exam: Normal Inspection Extremities Extremities Exam: Normal Inspection and Other (LIMITED RANGE OF MOTION) Neurological Neurological Exam: Alert, Oriented X3 and CN II-XII Intact Patient Oriented To: Person and Place Speech: Fluid Speech Motor Strength - LUE: 2/5 Motor Strength - RUE: 2/5 Motor Strength - LLE: 2/5 Motor Strength - RLE: 2/5 MDM Differential Diagnosis Metabolic: Dehydration Structural: CVA (TIA) Toxicologic: Medication Toxicity Infectious: UTI COURSE Treatment Treatment: PATIENT WAS FOUND TO HAVE DEHYDRTION AND CHANGE IN MENTAL STATUS AND ELEVATED D-DIMER. DR TAVERAS, THE PHYSICIAN NURSERY SUPERVISOR WAS CONTACTED AND AGREED TO ACCEPT THE PATIENT TO OBSERVATION TO TREAD DEHYDRATION AND DO NEURO CHECKS AND DO PROPHYLAXIS FOR DVE WITH LOVENOX. SINCE ULTRASOUND IS NOT DONE ON WEEKENDS. THE PATIENT WAS TOLD OF THE INTENT AND PATIENT'S ADVOCATE WAS ALSO TOLD. ROR Labs Reviewed Laboratory Results Reviewed?: Yes Laboratory: PT 15.1 SECONDS (11.8-14.3) 09/11/22 14:33 INR Target Range - 09/11/22 14:33 INR 1.23 (0.8-1.3) 09/11/22 14:33 APTT 32.3 SECONDS (22.9-36.5) 09/11/22 14:33 PTT Comment - 09/11/22 14:33 D-Dimer 0.62 ug/ml (0.0-0.57) H 09/11/22 14:33 Specimen Type Clean catch urine 09/11/22 19:40 Urine Color Pale yellow (YELLOW) 09/11/22 19:40 Urine Appearance Hazy (CLEAR) 09/11/22 19:40 Urine pH 8.0 (5.0 - 8.0) 09/11/22 19:40 Ur Specific [place] 1.015 (1.000-1.030) 09/11/22 19:40 Urine Protein 3+ (NEGATIVE) 09/11/22 19:40 Urine Glucose (UA) Negative (NEGATIVE) 09/11/22 19:40 Urine Ketones 1+ (NEGATIVE) 09/11/22 19:40 Urine Blood 5+ (NEGATIVE) 09/11/22 19:40 Urine Nitrite Negative (NEGATIVE) 09/11/22 19:40 Urine Bilirubin Negative (NEGATIVE) 09/11/22 19:40 Urine Urobilinogen Normal (NORMAL) 09/11/22 19:40 Ur Leukocyte Esterase 3+ (NEGATIVE) 09/11/22 19:40 Urine RBC 10-20 /HPF (0-3) A 09/11/22 19:40 Urine WBC Tntc /HPF (0-5) A 09/11/22 19:40 Ur Squamous Epith Cells Moderate /HPF (NEGATIVE) 09/11/22 19:40 Triple Phos Crystals Many /HPF (NEGATIVE) 09/11/22 19:40 Urine Bacteria 4+ /HPF (NEGATIVE) 09/11/22 19:40 Ur Culture Indicated? Yes/culture set up 09/11/22 19:40 Opioid Opioid Risk Tool Age (Hai box if 16-45): No History of Preadolescent Sexual Abuse: No Total: 0 Total Score Risk Category: Low Risk Copyright: Barrett MIRANDA predicting aberrant behaviors Discharge Plan Diagnosis Discharge Problem: Dehydration, Acute alteration in mental status, D-dimer, elevated Discharge Plan Patient Disposition: 09 ADMITTED INPATIENT Condition: Stable Prescriptions: No Action famotidine 40 MG tablet 40 mg PO DAILY levothyroxine 1 TAB tablet 112 mcg PO DAILY metoprolol tartrate 25 MG tablet 25 mg PO DAILY Simvastatin 20 MG Tab 20 mg PO HS olmesartan 20 mg Tablet 40 mg PO QDAY Eliquis 2.5 mg Tablet 5 mg PO BID folic acid 1 mg tablet 1 tab PO QDAY Paxlovid (EUA) 300 mg (150 mg x 2)-100 mg Tablet 3 tab PO QAM AND QPM Qty: 30 0RF Rx Instructions: take as directed in pack for 5 days Health Concerns: Post Hospitalization: new medications and changes needed to prevent readmission or further decline. Pt educated and given instructions on all concerns. Plan of Treatment: Continue with present treatment and follow up plan. Pt is to keep follow up appointment as instructed and take medications as ordered. Orders to Discharge Patient Discharge Orders: Transfer (Routine); Ordered 09/11/22 Ordered By: Edy Temple Follow ups/Referrals Follow ups/Referrals: SHERIF HAMMONDS [Primary Care Provider] - 3 days
--- NOTE | 2022-09-11 14:37 | CT ---
HISTORYChange in mental status.STUDYBRAIN W/O [id number]/27/2021.TECHNIQUE br techniques including Automated Exposure Control (AEC) and adjustment of mA and kV were utilized.Contrast: NoneFINDINGSBRAIN PARENCHYMA: No acute hemorrhage, infarct, mass, or mass effect.Person-white differentiation is maintained.Scattered white matter chronic small vessel ischemic changes.VENTRICLES/EXTRA-AXIAL SPACES: Unremarkable size and configuration. No hydrocephalus or extra-axial fluid collections.EXTRACRANIAL STRUCTURES:Unremarkable bones and soft tissues. There is an air-fluid level in the left maxillary sinus and some patchy ethmoid mucosal thickening. Mastoid air cells and middle ear cavities are clear.IMPRESSION1. Nothing acute. 2. Generalized atrophy and small vessel ischemic disease. 3. Left maxillary and mild ethmoid sinusitis.Electronically signed by: Lencho Patel (Sep 11, 2022 14:36:16)
[2022-09-11 14:47] LABS: INR 1.23 (0.8-1.3)
[2022-09-11] MEDS ORDERED: CATAPRES TAB 0.1 MG PO ONE (15:05)
[2022-09-11] MEDS ORDERED: CATAPRES TAB 0.1 MG ONE (15:06)
[2022-09-11 19:52] LABS: BILIRUBIN,URINE NEGATIVE (NEGATIVE); BLOOD/HEMOGLOBIN,URINE 5+ (NEGATIVE); GLUCOSE, URINE NEGATIVE (NEGATIVE); KETONES,URINE 1+ (NEGATIVE); LEUKOCYTE ESTERASE ,URINE 3+ (NEGATIVE); NITRITES,URINE NEGATIVE (NEGATIVE); PROTEIN,URINE 3+ (NEGATIVE); UROBILINOGEN,URINE NORMAL (NORMAL)
[2022-09-11 20:05] LABS: APPEARANCE,URINE HAZY (CLEAR); COLOR,URINE PALE YELLOW (YELLOW)
[2022-09-11 20:06] LABS: BACTERIA,URINE 4+ /HPF (NEGATIVE); SQUAMOUS EPITHELIAL CELL,UR MODERATE /HPF (NEGATIVE); TRIPLE PHOSPHATE CRYSTAL,UR MANY /HPF (NEGATIVE)
[2022-09-11] MEDS ORDERED: SIMVASTATIN 20 MG PO SCH (21:00)
[2022-09-11] MEDS: ROCEPHIN VIAL 1 GRAM 1 G in NS 100 ML IV 100 ML IV SCH (21:26)
[2022-09-11] MEDS: ZOCOR TAB 20 MG PO SCH (21:26)
[2022-09-11] MEDS: NS 1,000 ML IV 1,000 ML IV SCH (21:26)
[2022-09-11] MEDS: ELIQUIS PO SCH (22:37)
[2022-09-11 23:12] VITALS: BMI 22.6
[2022-09-12] MEDS: NS 1,000 ML IV 1,000 ML IV SCH ×3 (05:01→22:38)
[2022-09-12] MEDS: SYNTHROID 112 mcg TAB PO SCH (06:40)
[2022-09-12 07:04] LABS: BASOPHILS % (AUTO) 0.7 % (0.2-1.0); EOSINOPHILS # (AUTO) 0.1 x10^3/uL (0.0-0.2); EOSINOPHILS % (AUTO) 2.2 % (0.9-2.9); HEMATOCRIT 33.9 % (36.0-47.0); HEMOGLOBIN 11.2 g/dL (12.0-16.0); LYMPHOCYTES % (AUTO) 17.7 % (21.0-51.0); MEAN CORPUSCULAR HEMOGLOBIN 29.7 pg (27.0-34.0); MEAN CORPUSCULAR VOLUME 89.9 fL (80.0-100.0); MEAN PLATELET VOLUME 8.1 fL (7.4-11.0); NEUTROPHILS # (AUTO) 3.3 x10^3/uL (2.2-4.8); NEUTROPHILS % (AUTO) 60.4 % (42.0-75.0); RED BLOOD COUNT 3.77 X10^6/uL (3.5-5.4); RED CELL DISTRIBUTION WIDTH 14.4 % (11.6-16.5); WHITE BLOOD COUNT 5.5 X10^3/uL (3.6-10.0)
[2022-09-12 07:20] LABS: ALANINE AMINOTRANSFERASE 15 Units/L (12-78); ALKALINE PHOSPHATASE 48 Units/L (46-116); ASPARTATE AMINO TRANSFERASE 22 Units/L (15-37); BLOOD UREA NITROGEN 15 mg/dL (7-18); CALCIUM 8.4 mg/dL (8.5-10.1); CARBON DIOXIDE 27.6 mmol/L (21-32); CHLORIDE 103 mmol/L (98-107); COR CA(FOR HYPOALB) 9.2 mg/dL (8.5-10.1); SODIUM 138 mmol/L (136-145); TOTAL PROTEIN 6.1 g/dL (6.4-8.2); eGFR NON BLACK RACES > 60 (>60)
[2022-09-12] MEDS: BENICAR TAB 40 MG PO SCH (08:36)
[2022-09-12] MEDS: LOPRESSOR TAB 25 MG PO SCH (08:36)
[2022-09-12] MEDS: FOLIC ACID TAB 1 MG PO SCH (08:36)
[2022-09-12] MEDS: ELIQUIS PO SCH ×2 (08:36→21:07)
[2022-09-12] MEDS: PEPCID TAB 40 MG PO SCH (08:36)
[2022-09-12] MEDS ORDERED: SYNTHROID 125 mcg TAB PO SCH (09:00)
[2022-09-12] MEDS ORDERED: KLOR-CON PO PRN (09:17)
[2022-09-12] MEDS ORDERED: MICRO K EXTEN CAP 10 MEQ PO PRN (09:17)
[2022-09-12] MEDS ORDERED: POTASSIUM CHL 40 MEQ/NS 0.45% 500 ML IV PRN (09:17)
[2022-09-12] MEDS ORDERED: POTASSIUM CHLORIDE LIQ 20 MEQ UDC PO PRN (09:17)
[2022-09-12] MEDS ORDERED: POTASSIUM CHL 60 MEQ/NS 0.45% 500 ML IV PRN (09:17)
[2022-09-12] MEDS ORDERED: K-RIDER 10 MEQ/NS 100 ML 10 MEQ/100 ML BAG IV PRN (09:17)
[2022-09-12] MEDS: K-DUR TAB 20 MEQ PO PRN (11:31)
--- NOTE | 2022-09-12 12:19 | DR.H&P ---
H&P History & Physical for Day of: H&P Date: 09/12/22 Chief Complaint Chief Complaint: generalized weakness, AMS, leg pain Allergies Allergies Allergy/AdvReac Type Severity Reaction Status Date / Time clarithromycin [From Biaxin] Allergy Unknown Verified 09/11/22 15:05 penicillin V Allergy Unknown Verified 09/11/22 15:05 amoxicillin Allergy Verified 09/11/22 15:05 History of Present Illness History of Present Illness: Ms Muniz is a 86y/o patient with multiple comorbidies presented with AMS, weakness and leg pain. Patient was seen in the ER a day prior and had a complete work up. She was discharged with viral illness and dehydration. Patient's condition declined and she became more weak, unable to stand up so she presented again. ER work up showed UA suggestive of UTI, d- dimer 0.62. CT-brain was negative for acute process. She is feeling better this morning. She did ambulate to the bedside commode. She states her legs still hurt and feel weak. Patient appears to be more awake and alert today. Labs reviewed Urine Cx: gram (-) rods Plan: Order venous US to rule out DVT. Patient is already on Eliquis. Resume home medications. Continue IV Rocephin, follow urine culture. PT/OT as tolerated. Continue gentle hydration. Replace K and Mag as per protocol. Monitor AM labs. Past Medical History Past Medical History: Anxiety, Arthritis, Coronary Artery Disease, Dementia, Dyslipidemia, Hypertension and Hypothyroidism Past Surgical History Surgical History: Hysterectomy Family History Family Medical History: Cancer and Coronary Artery Disease Social History Alcohol Use: None Drug Use: None Medications Home Medications: clarithromycin [From Biaxin] Allergy (Unknown, Verified 09/11/22 15:05) penicillin V Allergy (Unknown, Verified 09/11/22 15:05) amoxicillin Allergy (Verified 09/11/22 15:05) CONTINUE taking the following medications magnesium citrate 85 mg chewable tablet (SlowMag Muscle Recovery) 1 mg PO DAILY 09/11/22 [History] Labs Result Diagrams: 09/12/22 06:37 09/12/22 06:37 Labs: 09/11/22 19:40 Urine,Clean Catch Urine Culture - Preliminary Laboratory WBC 5.5 X10^3/uL (3.6-10.0) 09/12/22 06:37 RBC 3.77 X10^6/uL (3.5-5.4) 09/12/22 06:37 Hgb 11.2 g/dL (12.0-16.0) L 09/12/22 06:37 Hct 33.9 % (36.0-47.0) L 09/12/22 06:37 MCV 89.9 fL (80.0-100.0) 09/12/22 06:37 MCH 29.7 pg (27.0-34.0) 09/12/22 06:37 MCHC 33.0 g/dL (33.0-35.0) 09/12/22 06:37 RDW 14.4 % (11.6-16.5) 09/12/22 06:37 Plt Count 258 X10^3/uL (150.0-450.0) 09/12/22 06:37 MPV 8.1 fL (7.4-11.0) 09/12/22 06:37 Neut % (Auto) 60.4 % (42.0-75.0) 09/12/22 06:37 Lymph % (Auto) 17.7 % (21.0-51.0) L 09/12/22 06:37 [place] % (Auto) 19.0 % (0.0-13.0) H 09/12/22 06:37 Eos % (Auto) 2.2 % (0.9-2.9) 09/12/22 06:37 Baso % (Auto) 0.7 % (0.2-1.0) 09/12/22 06:37 Neut # (Auto) 3.3 x10^3/uL (2.2-4.8) 09/12/22 06:37 Lymph # (Auto) 1.0 X10^3/uL (1.3-2.9) L 09/12/22 06:37 [place] # (Auto) 1.0 x10^3/uL (0.3-0.8) H 09/12/22 06:37 Eos # (Auto) 0.1 x10^3/uL (0.0-0.2) 09/12/22 06:37 Baso # (Auto) 0.0 X10^3/uL (0.0-0.1) 09/12/22 06:37 Absolute Nucleated RBC 0.1 /100WBC 09/12/22 06:37 PT 15.1 SECONDS (11.8-14.3) 09/11/22 14:33 INR Target Range - 09/11/22 14:33 INR 1.23 (0.8-1.3) 09/11/22 14:33 APTT 32.3 SECONDS (22.9-36.5) 09/11/22 14:33 PTT Comment - 09/11/22 14:33 D-Dimer 0.62 ug/ml (0.0-0.57) H 09/11/22 14:33 Sodium 138 mmol/L (136-145) 09/12/22 06:37 Corrected Sodium TNP 09/12/22 06:37 Potassium 3.5 mmol/L (3.5-5.1) 09/12/22 06:37 Chloride 103 mmol/L (98-107) 09/12/22 06:37 Carbon Dioxide 27.6 mmol/L (21-32) 09/12/22 06:37 BUN 15 mg/dL (7-18) 09/12/22 06:37 Creatinine 0.60 mg/dL (0.55-1.02) 09/12/22 06:37 Est GFR (MDRD) Af Amer > 60 (>60) 09/12/22 06:37 Est GFR (MDRD) Non-Af > 60 (>60) 09/12/22 06:37 Glucose 89 mg/dL (65-99) 09/12/22 06:37 Calcium 8.4 mg/dL (8.5-10.1) L 09/12/22 06:37 Corrected Calcium 9.2 mg/dL (8.5-10.1) 09/12/22 06:37 Magnesium 1.7 mg/dL (2.0-2.9) L 09/12/22 06:37 Total Bilirubin 0.40 mg/dL (0.2-1.0) 09/12/22 06:37 AST 22 Units/L (15-37) 09/12/22 06:37 ALT 15 Units/L (12-78) 09/12/22 06:37 Alkaline Phosphatase 48 Units/L (46-116) 09/12/22 06:37 Total Protein 6.1 g/dL (6.4-8.2) L 09/12/22 06:37 Albumin 3.0 g/dL (3.4-5.0) L 09/12/22 06:37 Globulin 3.1 g/dL (2.5-4.5) 09/12/22 06:37 Albumin/Globulin Ratio 1.0 Ratio (1.1-2.1) L 09/12/22 06:37 Specimen Type Clean catch urine 09/11/22 19:40 Urine Color Pale yellow (YELLOW) 09/11/22 19:40 Urine Appearance Hazy (CLEAR) 09/11/22 19:40 Urine pH 8.0 (5.0 - 8.0) 09/11/22 19:40 Ur Specific [place] 1.015 (1.000-1.030) 09/11/22 19:40 Urine Protein 3+ (NEGATIVE) 09/11/22 19:40 Urine Glucose (UA) Negative (NEGATIVE) 09/11/22 19:40 Urine Ketones 1+ (NEGATIVE) 09/11/22 19:40 Urine Blood 5+ (NEGATIVE) 09/11/22 19:40 Urine Nitrite Negative (NEGATIVE) 09/11/22 19:40 Urine Bilirubin Negative (NEGATIVE) 09/11/22 19:40 Urine Urobilinogen Normal (NORMAL) 09/11/22 19:40 Ur Leukocyte Esterase 3+ (NEGATIVE) 09/11/22 19:40 Urine RBC 10-20 /HPF (0-3) A 09/11/22 19:40 Urine WBC Tntc /HPF (0-5) A 09/11/22 19:40 Ur Squamous Epith Cells Moderate /HPF (NEGATIVE) 09/11/22 19:40 Triple Phos Crystals Many /HPF (NEGATIVE) 09/11/22 19:40 Urine Bacteria 4+ /HPF (NEGATIVE) 09/11/22 19:40 Ur Culture Indicated? Yes/culture set up 09/11/22 19:40 Review of Systems Constitutional: Weakness Eyes: No Symptoms Reported ENT: No Symptoms Reported Respiratory: No Symptoms Reported Cardiovascular: No Symptoms Reported Gastrointestinal: No Symptoms Reported Musculoskeletal: Leg Pain Skin: No Symptoms Reported Neurological: Confusion Physical Exam Vital Signs: Temperature 97.9 F Pulse Rate [Left Radial] 100 Pulse Rate 61 Respiratory Rate 20 Blood Pressure [Left Arm] 126/59 Blood Pressure 151/72 O2 Sat by Pulse Oximetry 95 Oriented: Normal Eyes: Normal Nose: Normal Respiratory: Diminished Throughout Cardiovascular: Normal Auscultation: Bowel Sounds: Normal Tenderness: Normal Skin: Decreased [place] Musculoskeletal: Right, Left and Leg (mild swelling and tenderness, no erythema or warmth ) Psychiatric: Normal Mood Description: Calm Affect: Normal Speech Pattern: Clear and Appropriate Assessment/Plan (1) Acute alteration in mental status: Status: Acute (2) D-dimer, elevated: Status: Acute (3) Urinary tract infection: Status: Acute (4) Anemia: Status: Acute (5) Hypomagnesemia: Status: Acute (6) Dehydration: Status: Acute (7) CAD (coronary artery disease): Status: Acute Review H&P Reviewed: Yes Patient was examined?: Yes
[2022-09-12] MEDS: MAGNESIUM SULFATE 1 GRAM/100 mL PREMIX 1 G/100 ML BAG IV PRN ×2 (12:42→21:12)
[2022-09-12] MEDS: ZOCOR TAB 20 MG PO SCH (21:07)
[2022-09-12] MEDS: ROCEPHIN VIAL 1 GRAM 1 G in NS 100 ML IV 100 ML IV SCH (21:10)
[2022-09-13] MEDS: SYNTHROID 112 mcg TAB PO SCH (05:59)
[2022-09-13] MEDS: NS 1,000 ML IV 1,000 ML IV SCH ×3 (06:07→21:15)
[2022-09-13 06:29] LABS: BASOPHILS % (AUTO) 0.6 % (0.2-1.0); EOSINOPHILS # (AUTO) 0.1 x10^3/uL (0.0-0.2); EOSINOPHILS % (AUTO) 1.5 % (0.9-2.9); HEMATOCRIT 34.8 % (36.0-47.0); HEMOGLOBIN 11.7 g/dL (12.0-16.0); LYMPHOCYTES # (AUTO) 1.1 X10^3/uL (1.3-2.9); LYMPHOCYTES % (AUTO) 13.4 % (21.0-51.0); MEAN CORPUSCULAR HEMOGLOBIN 30.1 pg (27.0-34.0); MEAN CORPUSCULAR HGB CONC 33.7 g/dL (33.0-35.0); MEAN CORPUSCULAR VOLUME 89.2 fL (80.0-100.0); MEAN PLATELET VOLUME 8.4 fL (7.4-11.0); MONOCYTES # (AUTO) 1.1 x10^3/uL (0.3-0.8); MONOCYTES % (AUTO) 13.7 % (0.0-13.0); NEUTROPHILS # (AUTO) 5.7 x10^3/uL (2.2-4.8); NEUTROPHILS % (AUTO) 70.8 % (42.0-75.0); RED CELL DISTRIBUTION WIDTH 14.5 % (11.6-16.5); WHITE BLOOD COUNT 8.1 X10^3/uL (3.6-10.0)
[2022-09-13 08:24] LABS: ALANINE AMINOTRANSFERASE 25 Units/L (12-78); ALBUMIN 3.6 g/dL (3.4-5.0); ALKALINE PHOSPHATASE 59 Units/L (46-116); ASPARTATE AMINO TRANSFERASE 36 Units/L (15-37); BLOOD UREA NITROGEN 12 mg/dL (7-18); CALCIUM 8.7 mg/dL (8.5-10.1); CARBON DIOXIDE 27.8 mmol/L (21-32); CHLORIDE 101 mmol/L (98-107); CREATININE 0.62 mg/dL (0.55-1.02); MAGNESIUM 1.9 mg/dL (2.0-2.9); SODIUM 138 mmol/L (136-145); TOTAL PROTEIN 7.1 g/dL (6.4-8.2); eGFR NON BLACK RACES > 60 (>60)
[2022-09-13] MEDS ORDERED: APRESOLINE INJ 20 MG VIAL IVP PRN (10:11)
[2022-09-13] MEDS: BENICAR TAB 40 MG PO SCH (10:13)
[2022-09-13] MEDS: LOPRESSOR TAB 25 MG PO SCH (10:14)
[2022-09-13] MEDS: PEPCID TAB 40 MG PO SCH (10:14)
[2022-09-13] MEDS: FOLIC ACID TAB 1 MG PO SCH (10:14)
[2022-09-13] MEDS: ELIQUIS PO SCH ×2 (10:15→20:41)
[2022-09-13] MEDS: K-DUR TAB 20 MEQ PO PRN (10:54)
--- NOTE | 2022-09-13 11:59 | PCM.PROG ---
Progress Note Progress Note for Day of Date of Exam: 09/13/22 Subjective Subjective: Patient seen at bedside, overnight patient was noted to be confused and agitated. She is doing better this morning. She is awake, alert to place and herself. She has been ambulating to the bedside commode. She states her leg weakness is better. She has been tolerating PO intake. She is being treated for generalized weakness, AMS due to dementia and UTI. Labs reviewed Hgb 11.7 K 3.5 Mg 1.9 Urine Cx: Proteus Plan: Continue IV Rocephin and gentle hydration. Venous US pending. Continue home medications. IV hydralazine prn for SBP > 160. Replace K and Mag as per protocol. Monitor AM labs. PT/OT as tolerated. Past Medical Family Social History Allergies: Allergies clarithromycin [From Biaxin] Allergy (Unknown, Verified 09/11/22 15:05) Reason: Drug allergy penicillin V Allergy (Unknown, Verified 09/11/22 15:05) Reason: Drug allergy amoxicillin Allergy (Verified 09/11/22 15:05) Vital Signs and I&O's Vital Signs: Temperature 98.8 F Pulse Rate [Left Radial] 86 Pulse Rate 61 Respiratory Rate 20 Blood Pressure [Left Arm] 156/72 Blood Pressure 151/72 O2 Sat by Pulse Oximetry 96 Intake and Output: Intake & Output 09/10/22 09/11/22 09/12/22 09/13/22 23:59 23:59 23:59 23:59 Intake Total 1000 / 1000 3422 / 3422 620 / 620 Balance 1000 / 1000 3422 / 3422 620 / 620 Physical Exam Oriented: Time (partial time ), Person and Place Eyes: Normal Nose: Normal Cardiovascular: Normal and Edema Auscultation: Bowel Sounds: Normal Tenderness: Normal Skin: Decreased [place] Musculoskeletal: Right, Left and Leg (mild swelling and tenderness, no erythema or warmth ) Psychiatric: Normal Mood Description: Calm Affect: Normal Speech Pattern: Clear and Appropriate Laboratory and Diagnostics Result Diagrams: 09/13/22 05:28 09/13/22 05:28 Labs: 09/11/22 19:40 Urine,Clean Catch Urine Culture - Final Proteus [facility] Laboratory WBC 8.1 X10^3/uL (3.6-10.0) 09/13/22 05:28 RBC 3.90 X10^6/uL (3.5-5.4) 09/13/22 05:28 Hgb 11.7 g/dL (12.0-16.0) L 09/13/22 05:28 Hct 34.8 % (36.0-47.0) L 09/13/22 05:28 MCV 89.2 fL (80.0-100.0) 09/13/22 05:28 MCH 30.1 pg (27.0-34.0) 09/13/22 05:28 MCHC 33.7 g/dL (33.0-35.0) 09/13/22 05:28 RDW 14.5 % (11.6-16.5) 09/13/22 05:28 Plt Count 274 X10^3/uL (150.0-450.0) 09/13/22 05:28 MPV 8.4 fL (7.4-11.0) 09/13/22 05:28 Neut % (Auto) 70.8 % (42.0-75.0) 09/13/22 05:28 Lymph % (Auto) 13.4 % (21.0-51.0) L 09/13/22 05:28 [place] % (Auto) 13.7 % (0.0-13.0) H 09/13/22 05:28 Eos % (Auto) 1.5 % (0.9-2.9) 09/13/22 05:28 Baso % (Auto) 0.6 % (0.2-1.0) 09/13/22 05:28 Neut # (Auto) 5.7 x10^3/uL (2.2-4.8) H 09/13/22 05:28 Lymph # (Auto) 1.1 X10^3/uL (1.3-2.9) L 09/13/22 05:28 [place] # (Auto) 1.1 x10^3/uL (0.3-0.8) H 09/13/22 05:28 Eos # (Auto) 0.1 x10^3/uL (0.0-0.2) 09/13/22 05:28 Baso # (Auto) 0.0 X10^3/uL (0.0-0.1) 09/13/22 05:28 Absolute Nucleated RBC 0.0 /100WBC 09/13/22 05:28 PT 15.1 SECONDS (11.8-14.3) 09/11/22 14:33 INR Target Range - 09/11/22 14:33 INR 1.23 (0.8-1.3) 09/11/22 14:33 APTT 32.3 SECONDS (22.9-36.5) 09/11/22 14:33 PTT Comment - 09/11/22 14:33 D-Dimer 0.62 ug/ml (0.0-0.57) H 09/11/22 14:33 Sodium 138 mmol/L (136-145) 09/13/22 05:28 Corrected Sodium TNP 09/13/22 05:28 Potassium 3.5 mmol/L (3.5-5.1) 09/13/22 05:28 Chloride 101 mmol/L (98-107) 09/13/22 05:28 Carbon Dioxide 27.8 mmol/L (21-32) 09/13/22 05:28 BUN 12 mg/dL (7-18) 09/13/22 05:28 Creatinine 0.62 mg/dL (0.55-1.02) 09/13/22 05:28 Est GFR (MDRD) Af Amer > 60 (>60) 09/13/22 05:28 Est GFR (MDRD) Non-Af > 60 (>60) 09/13/22 05:28 Glucose 97 mg/dL (65-99) 09/13/22 05:28 Calcium 8.7 mg/dL (8.5-10.1) 09/13/22 05:28 Corrected Calcium TNP 09/13/22 05:28 Magnesium 1.9 mg/dL (2.0-2.9) L 09/13/22 05:28 Total Bilirubin 0.40 mg/dL (0.2-1.0) 09/13/22 05:28 AST 36 Units/L (15-37) 09/13/22 05:28 ALT 25 Units/L (12-78) 09/13/22 05:28 Alkaline Phosphatase 59 Units/L (46-116) 09/13/22 05:28 Total Protein 7.1 g/dL (6.4-8.2) 09/13/22 05:28 Albumin 3.6 g/dL (3.4-5.0) 09/13/22 05:28 Globulin 3.5 g/dL (2.5-4.5) 09/13/22 05:28 Albumin/Globulin Ratio 1.0 Ratio (1.1-2.1) L 09/13/22 05:28 Specimen Type Clean catch urine 09/11/22 19:40 Urine Color Pale yellow (YELLOW) 09/11/22 19:40 Urine Appearance Hazy (CLEAR) 09/11/22 19:40 Urine pH 8.0 (5.0 - 8.0) 09/11/22 19:40 Ur Specific [place] 1.015 (1.000-1.030) 09/11/22 19:40 Urine Protein 3+ (NEGATIVE) 09/11/22 19:40 Urine Glucose (UA) Negative (NEGATIVE) 09/11/22 19:40 Urine Ketones 1+ (NEGATIVE) 09/11/22 19:40 Urine Blood 5+ (NEGATIVE) 09/11/22 19:40 Urine Nitrite Negative (NEGATIVE) 09/11/22 19:40 Urine Bilirubin Negative (NEGATIVE) 09/11/22 19:40 Urine Urobilinogen Normal (NORMAL) 09/11/22 19:40 Ur Leukocyte Esterase 3+ (NEGATIVE) 09/11/22 19:40 Urine RBC 10-20 /HPF (0-3) A 09/11/22 19:40 Urine WBC Tntc /HPF (0-5) A 09/11/22 19:40 Ur Squamous Epith Cells Moderate /HPF (NEGATIVE) 09/11/22 19:40 Triple Phos Crystals Many /HPF (NEGATIVE) 09/11/22 19:40 Urine Bacteria 4+ /HPF (NEGATIVE) 09/11/22 19:40 Ur Culture Indicated? Yes/culture set up 09/11/22 19:40 Plan (1) Acute alteration in mental status: Status: Acute (2) D-dimer, elevated: Status: Acute (3) Urinary tract infection: Status: Acute (4) Anemia: Status: Acute (5) Hypomagnesemia: Status: Acute (6) Dehydration: Status: Acute (7) CAD (coronary artery disease): Status: Acute
[2022-09-13] MEDS: MAGNESIUM SULFATE 1 GRAM/100 mL PREMIX 1 G/100 ML BAG IV PRN ×2 (12:13→21:42)
[2022-09-13] MEDS ORDERED: TYLENOL 325 MG TAB PO PRN (14:22)
[2022-09-13] MEDS: ZOCOR TAB 20 MG PO SCH (20:41)
[2022-09-13] MEDS: ROCEPHIN VIAL 1 GRAM 1 G in NS 100 ML IV 100 ML IV SCH (21:16)
[2022-09-14] MEDS: NS 1,000 ML IV 1,000 ML IV SCH ×3 (05:17→21:19)
[2022-09-14] MEDS: SYNTHROID 112 mcg TAB PO SCH (05:56)
[2022-09-14 06:29] LABS: BASOPHILS % (AUTO) 0.4 % (0.2-1.0); EOSINOPHILS # (AUTO) 0.6 x10^3/uL (0.0-0.2); EOSINOPHILS % (AUTO) 7.8 % (0.9-2.9); HEMATOCRIT 33.8 % (36.0-47.0); HEMOGLOBIN 11.3 g/dL (12.0-16.0); LYMPHOCYTES # (AUTO) 1.1 X10^3/uL (1.3-2.9); LYMPHOCYTES % (AUTO) 13.6 % (21.0-51.0); MEAN CORPUSCULAR HEMOGLOBIN 29.9 pg (27.0-34.0); MEAN CORPUSCULAR HGB CONC 33.4 g/dL (33.0-35.0); MEAN CORPUSCULAR VOLUME 89.5 fL (80.0-100.0); MEAN PLATELET VOLUME 8.6 fL (7.4-11.0); MONOCYTES # (AUTO) 0.9 x10^3/uL (0.3-0.8); MONOCYTES % (AUTO) 11.8 % (0.0-13.0); NEUTROPHILS # (AUTO) 5.2 x10^3/uL (2.2-4.8); NEUTROPHILS % (AUTO) 66.4 % (42.0-75.0); RED BLOOD COUNT 3.78 X10^6/uL (3.5-5.4); RED CELL DISTRIBUTION WIDTH 14.3 % (11.6-16.5); WHITE BLOOD COUNT 7.9 X10^3/uL (3.6-10.0)
[2022-09-14 06:43] LABS: ALANINE AMINOTRANSFERASE 21 Units/L (12-78); ALBUMIN 3.3 g/dL (3.4-5.0); ALKALINE PHOSPHATASE 53 Units/L (46-116); ASPARTATE AMINO TRANSFERASE 29 Units/L (15-37); BLOOD UREA NITROGEN 13 mg/dL (7-18); CALCIUM 8.6 mg/dL (8.5-10.1); CARBON DIOXIDE 27.5 mmol/L (21-32); CHLORIDE 101 mmol/L (98-107); COR CA(FOR HYPOALB) 9.2 mg/dL (8.5-10.1); CREATININE 0.51 mg/dL (0.55-1.02); SODIUM 137 mmol/L (136-145); TOTAL PROTEIN 6.5 g/dL (6.4-8.2); eGFR NON BLACK RACES > 60 (>60)
--- NOTE | 2022-09-14 08:30 | VAS ---
HISTORYBilateral leg swelling and painSTUDYVENOUS DOPPLER ULTRASOUND LOWER EXTREMITYCOMPARISONNoneTECHNIQUEGrayscal e and color Doppler imaging of the bilateral lower extremities using compression and augmentation techniques.FINDINGSThere is normal color Doppler flow demonstrated from the common femoral vein through of the posterior tibial vein of the bilateral lower extremity. The vessels augment and compress normally with no DVT identified.IMPRESSIONNo evidence of DVT right or left legElectronically signed by: CLARY CHANDRA (Sep 14, 2022 08:28:01)
[2022-09-14] MEDS: PEPCID TAB 40 MG PO SCH (09:47)
[2022-09-14] MEDS: BENICAR TAB 40 MG PO SCH (09:47)
[2022-09-14] MEDS: ELIQUIS PO SCH ×2 (09:47→21:13)
[2022-09-14] MEDS: K-DUR TAB 20 MEQ PO PRN (09:47)
[2022-09-14] MEDS: FOLIC ACID TAB 1 MG PO SCH (09:48)
[2022-09-14] MEDS: LOPRESSOR TAB 25 MG PO SCH (09:48)
[2022-09-14] MEDS: CLARITIN PO SCH (11:24)
--- NOTE | 2022-09-14 15:23 | RAD ---
CHEST, 1 VIEWHISTORY: CHFStudy: Single view of the chest.Comparison:09/10/2022Findings:The cardiomediastinal silhouette is normal.No focal consolidations, pleural effusions or pneumothorax. Osseous structures demonstrate no acute abnormality.IMPRESSION:1. No acute cardiopulmonary process.Electronically signed by: KELI ARMENTA (Sep 14, 2022 15:22:25)
[2022-09-14] MEDS: ZOCOR TAB 20 MG PO SCH (21:13)
[2022-09-14] MEDS: ROCEPHIN VIAL 1 GRAM 1 G in NS 100 ML IV 100 ML IV SCH (21:13)
[2022-09-15] MEDS: SYNTHROID 112 mcg TAB PO SCH (05:33)
[2022-09-15] MEDS: NS 1,000 ML IV 1,000 ML IV SCH (05:33)
[2022-09-15] MEDS ORDERED: FLONASE NASAL SPRAY ENOSTRIL SCH (09:00)
[2022-09-15] MEDS: BENICAR TAB 40 MG PO SCH (09:19)
[2022-09-15] MEDS: ELIQUIS PO SCH (09:20)
[2022-09-15] MEDS: PEPCID TAB 40 MG PO SCH (09:20)
[2022-09-15] MEDS: CLARITIN PO SCH (09:20)
[2022-09-15] MEDS: LOPRESSOR TAB 25 MG PO SCH (09:21)
[2022-09-15] MEDS: FOLIC ACID TAB 1 MG PO SCH (09:21)
[2022-09-15 12:32] VITALS: BP 172/71
== END 2022-09-15 14:20 | disposition home health service (06) | DRG 690 ==
LOC: MED/SURG 13:06 → ER 13:06 → MED/SURG 20:04
PROVIDERS: ADMIT Internal Medicine; ATTEND Internal Medicine
DX: I25.10 Atherosclerotic heart disease of native coronary artery without angina pectoris; R60.0 Localized edema; I10 Essential (primary) hypertension; B96.4 Proteus (mirabilis) (morganii) as the cause of diseases classified elsewhere; E86.0 Dehydration; I48.91 Unspecified atrial fibrillation; R53.1 Weakness; R41.82 Altered mental status, unspecified; R26.89 Other abnormalities of gait and mobility; N39.0 Urinary tract infection, site not specified; E83.42 Hypomagnesemia; E03.8 Other specified hypothyroidism; J01.80 Other acute sinusitis; E78.5 Hyperlipidemia, unspecified; Z79.01 Long term (current) use of anticoagulants; R05.9 Cough, unspecified; D64.89 Other specified anemias

== ENCOUNTER 2023-03-01 16:10 | Inpatient (IN) ==
--- NOTE | 2023-03-01 16:24 | EKG ---
Test Reason : AFiB Blood Pressure : */* mmHG Vent. Rate : 97 BPM Atrial Rate : * BPM P-R Int : * ms QRS Dur : 94 ms QT Int : 290 ms P-R-T Axes : * 10 95 degrees QTc Int : 368 ms Atrial fibrillation with premature ventricular or aberrantly conducted complexes Nonspecific ST and T wave abnormality Abnormal ECG No previous ECGs available Confirmed by Gonzalez Guerra ([id number]) on 03/03/2023 12:37:14 PM Referred By: Confirmed By: Gonzalez Guerra
--- NOTE | 2023-03-01 16:34 | DR.GENAD ---
HPI Time Seen Time Seen by Provider: 03/01/23 16:32 HPI Comment HPI Comment: Patient is 87yr old female in er via EMS with AMS, fever, weakness and feeling well. Patient was having shaking chills at home. She is currently treated for E Coli Uti. She was fine Wednesday. Went to a senior dance Wednesday. Tod ay, she is increasing weak. Bryan temp of 103. She is complaining of pain and is confused and restless. History CAD, DM, HTN, Dementia and Hypothyroidism. Complaint/Symptoms Chief Complaint Doctors Comments: Fever, weakness, chills and confusion noted today. COVID-19 Coronavirus risk:travel/contact w/high risk person: No Has patient experienced Coronavirus symptoms: No Nurses notes reviewed Nurses Notes Review: Yes PMH PMH Past Medical History: Anxiety, Arthritis, Coronary Artery Disease, Dementia, Dyslipidemia, Hypertension and Hypothyroidism Past Surgical History: Yes Surgical History: Hysterectomy Family History Family Medical History: Cancer and Coronary Artery Disease Social History Do you use any recreational Drugs:: No ROS Review of Systems Constitutional: Chills, Fever, Malaise, Weakness and Fatigue Eyes: No Symptoms Reported; negative Blurred Vision ENTM: Nose Congestion; negative Nose Discharge Respiratoy: Moist Cough and Short of Breath (On exertion) Cardiovascular: No Symptoms Reported and Other (A fib); negative Chest Pain Gastrointestinal/Abdominal: negative Abdominal Pain, Diarrhea, Nausea or Vomiting Genitourinary: No Symptoms Reported; negative Dysuria Neurological: No Symptoms Reported, Weakness and Other (AMS.); negative Headache Musculoskeletal: Back Pain and Leg (BILATERAL LEG PAIN.) Integumentary: Dryness; negative Rash or Juandice Hematologic/Lymphatic: Easy Bruising Endocrine: No Symptoms Reported; negative Increased Thirst or Increased Urine Psychiatric: No Symptoms Reported All Other Systems: Reviewed and Negative PE Vital Signs Vitals: Vital Signs Temperature 98.4 F Temperature 100.9 F Temperature 103.1 F Pulse Rate [Apical] 93 Pulse Rate 86 Pulse Rate 90 Pulse Rate 87 Pulse Rate 85 Pulse Rate 90 Pulse Rate 91 Pulse Rate 95 Pulse Rate 88 Pulse Rate 100 Pulse Rate 99 Pulse Rate 97 Pulse Rate 95 Pulse Rate 103 Pulse Rate 107 Pulse Rate 91 Pulse Rate 93 Pulse Rate 105 Pulse Rate 102 Pulse Rate 103 Pulse Rate 100 Pulse Rate 93 Pulse Rate 92 Pulse Rate 101 Pulse Rate 96 Pulse Rate 110 Pulse Rate 111 Pulse Rate 112 Pulse Rate 104 Pulse Rate 97 Respiratory Rate 54 Respiratory Rate 22 Respiratory Rate 21 Respiratory Rate 22 Respiratory Rate 18 Respiratory Rate 23 Respiratory Rate 19 Respiratory Rate 21 Respiratory Rate 19 Respiratory Rate 13 Respiratory Rate 19 Respiratory Rate 25 Respiratory Rate 26 Respiratory Rate 22 Respiratory Rate 24 Respiratory Rate 29 Respiratory Rate 29 Respiratory Rate 28 Respiratory Rate 27 Respiratory Rate 25 Respiratory Rate 18 Respiratory Rate 39 Respiratory Rate 30 Respiratory Rate 27 Respiratory Rate 20 Respiratory Rate 29 Respiratory Rate 24 Respiratory Rate 37 Respiratory Rate 45 Respiratory Rate 36 Respiratory Rate 29 Respiratory Rate 28 Respiratory Rate 28 Respiratory Rate 12 Blood Pressure [Left Arm] 164/70 Blood Pressure 171/74 Blood Pressure 140/64 Blood Pressure 164/70 Blood Pressure 178/94 Blood Pressure 186/79 Blood Pressure 214/98 Blood Pressure 184/74 Blood Pressure 180/93 Blood Pressure 132/85 Blood Pressure 217/135 Blood Pressure 221/182 Blood Pressure 221/104 Blood Pressure 221/104 Blood Pressure 189/91 O2 Sat by Pulse Oximetry 98 O2 Sat by Pulse Oximetry 94 O2 Sat by Pulse Oximetry 89 O2 Sat by Pulse Oximetry 91 O2 Sat by Pulse Oximetry 93 O2 Sat by Pulse Oximetry 95 O2 Sat by Pulse Oximetry 93 O2 Sat by Pulse Oximetry 93 O2 Sat by Pulse Oximetry 97 O2 Sat by Pulse Oximetry 92 O2 Sat by Pulse Oximetry 91 O2 Sat by Pulse Oximetry 91 O2 Sat by Pulse Oximetry 95 O2 Sat by Pulse Oximetry 91 O2 Sat by Pulse Oximetry 97 O2 Sat by Pulse Oximetry 96 O2 Sat by Pulse Oximetry 96 O2 Sat by Pulse Oximetry 96 O2 Sat by Pulse Oximetry 74 O2 Sat by Pulse Oximetry 81 General Limitations: No Limitations General Appearance: Alert, In Distress and Other (CONFUSED.) Head Head Exam: Normal Inspection and Atraumatic Eyes Eye exam: Normal Appearance; negative Scleral Icterus or Conjunctival Injection ENT ENT Exam: Normal Exam, Normal Oropharynx, Normal External Ear Exam and TM's Normal Bilaterally Neck Neck Exam: Normal Inspection and Trachea Midline; negative Tenderness Chest Chest Inspection: Normal Inspection and Symmetric Chest Wall Rise; negative Tenderness Respiratory Respiratory Exam: Respiratory Distress; negative Accessory Muscle Use or Chest Wall Tenderness Respiratory Exam: Bilateral: Rhonchi Cardiovascular Cardiovascular Exam: Irregular Rhythm; negative Systolic Murmur or Diastolic Murmur Abdominal Exam Abdominal Exam: Normal Inspection, Normal Bowel Sounds and Soft; negative Tenderness Extremities Extremities Exam: Normal Inspection and Normal Capillary Refill Back Back Exam: Paraspinal Tenderness; negative (R) CVA Tenderness or (L) CVA Tenderness Neurologic Neurological Exam: Alert; negative Oriented X3 or Motor Sensory Deficit Psychiatric Psychiatric Exam: Agitated Skin Skin Exam: Dry MDM Differential Diagnosis Differential Diagnosis: GENERALIZED WEAKNESS, ONGOING UTI, DEHYDRATION, PNEUMONIA, MD, CHF. COURSE Treatment Treatment: SEE ORDERS DONE WHILE PATIENT WAS IN ER. PATIENT WAS GIVEN ANTIBIOTICS AND IV FLUIDS IN ER. LABS AND CT AND XRAY WERE DISCUSSED WITH HER DAUGHTER. SHE WAS ADMITTED TO HOSPITAL FOR FURTHER TREATMENT. Consultation Consultation Comments: DISCUSSED PATIENT WITH DR. MELENDEZ. HE WILL ADMIT PATIENT. Education/Counseling Education/Counseling: Patient and Family Educated On: Treatment ROR Labs Reviewed Laboratory Results Reviewed?: Yes 03/03/23 05:22 03/03/23 05:22 Laboratory: 03/01/23 17:23 Blood Blood Culture - Preliminary 03/01/23 17:18 Blood Blood Culture - Preliminary 03/01/23 16:48 Urine,Clean Catch Urine Culture - Preliminary WBC 11.2 X10^3/uL (3.6-10.0) H 03/01/23 16:28 RBC 3.65 X10^6/uL (3.5-5.4) 03/01/23 16:28 Hgb 11.1 g/dL (12.0-16.0) L 03/01/23 16:28 Hct 33.9 % (36.0-47.0) L 03/01/23 16:28 MCV 92.7 fL (80.0-100.0) 03/01/23 16:28 MCH 30.3 pg (27.0-34.0) 03/01/23 16:28 MCHC 32.7 g/dL (33.0-35.0) L 03/01/23 16:28 RDW 14.4 % (11.6-16.5) 03/01/23 16:28 Plt Count 348 X10^3/uL (150.0-450.0) 03/01/23 16:28 MPV 8.4 fL (7.4-11.0) 03/01/23 16:28 Neut % (Auto) 83.6 % (42.0-75.0) H 03/01/23 16:28 Lymph % (Auto) 6.2 % (21.0-51.0) L 03/01/23 16:28 [place] % (Auto) 5.7 % (0.0-13.0) 03/01/23 16:28 Eos % (Auto) 3.7 % (0.9-2.9) H 03/01/23 16:28 Baso % (Auto) 0.8 % (0.2-1.0) 03/01/23 16:28 Neut # (Auto) 9.4 x10^3/uL (2.2-4.8) H 03/01/23 16:28 Lymph # (Auto) 0.7 X10^3/uL (1.3-2.9) L 03/01/23 16:28 [place] # (Auto) 0.6 x10^3/uL (0.3-0.8) 03/01/23 16:28 Eos # (Auto) 0.4 x10^3/uL (0.0-0.2) H 03/01/23 16:28 Baso # (Auto) 0.1 X10^3/uL (0.0-0.1) 03/01/23 16:28 Absolute Nucleated RBC 0.1 /100WBC 03/01/23 16:28 PT 14.9 SECONDS (11.8-14.3) 03/01/23 16:28 INR Target Range - 03/01/23 16:28 INR 1.19 (0.8-1.3) 03/01/23 16:28 APTT 33.9 SECONDS (22.9-36.5) 03/01/23 16:28 PTT Comment - 03/01/23 16:28 Sodium 137 mmol/L (136-145) 03/01/23 16:28 Corrected Sodium 137 mmol/L (136-145) 03/01/23 16:28 Potassium 4.2 mmol/L (3.5-5.1) 03/01/23 16:28 Chloride 101 mmol/L (98-107) 03/01/23 16:28 Carbon Dioxide 28.6 mmol/L (21-32) 03/01/23 16:28 BUN 22 mg/dL (7-18) H 03/01/23 16:28 Creatinine 0.63 mg/dL (0.55-1.02) 03/01/23 16:28 Est GFR (MDRD) Af Amer > 60 (>60) 03/01/23 16:28 Est GFR (MDRD) Non-Af > 60 (>60) 03/01/23 16:28 Glucose 111 mg/dL (65-99) H 03/01/23 16:28 Lactic Acid 1.3 mmol/L (0.4-2.0) 03/01/23 18:20 Calcium 8.5 mg/dL (8.5-10.1) 03/01/23 16:28 Corrected Calcium TNP 03/01/23 16:28 Total Bilirubin 0.60 mg/dL (0.2-1.0) 03/01/23 16:28 AST 37 Units/L (15-37) 03/01/23 16:28 ALT 28 Units/L (12-78) 03/01/23 16:28 Alkaline Phosphatase 53 Units/L (46-116) 03/01/23 16:28 Ammonia < 10 umol/L (11-32) L 03/01/23 18:20 Creatine Kinase 53 Units/L (26-192) 03/01/23 16:28 Troponin I High Sens 73.7 ng/L (4.0-60.0) H* 03/01/23 18:20 B-Natriuretic Peptide 392 pg/mL (0-79) H 03/01/23 16:28 Total Protein 6.8 g/dL (6.4-8.2) 03/01/23 16:28 Albumin 3.8 g/dL (3.4-5.0) 03/01/23 16:28 Globulin 3.0 g/dL (2.5-4.5) 03/01/23 16:28 Albumin/Globulin Ratio 1.3 Ratio (1.1-2.1) 03/01/23 16:28 Specimen Type Catherized urine 03/01/23 16:48 Urine Color Straw (YELLOW) 03/01/23 16:48 Urine Appearance Clear (CLEAR) 03/01/23 16:48 Urine pH 6.0 (5.0 - 8.0) 03/01/23 16:48 Ur Specific [place] 1.020 (1.000-1.030) 03/01/23 16:48 Urine Protein Negative (NEGATIVE) 03/01/23 16:48 Urine Glucose (UA) Negative (NEGATIVE) 03/01/23 16:48 Urine Ketones Negative (NEGATIVE) 03/01/23 16:48 Urine Blood 1+ (NEGATIVE) 03/01/23 16:48 Urine Nitrite Negative (NEGATIVE) 03/01/23 16:48 Urine Bilirubin Negative (NEGATIVE) 03/01/23 16:48 Urine Urobilinogen Normal (NORMAL) 03/01/23 16:48 Ur Leukocyte Esterase Negative (NEGATIVE) 03/01/23 16:48 Urine RBC 0-2 /HPF (0-3) 03/01/23 16:48 Urine WBC None seen /HPF (0-5) 03/01/23 16:48 Ur Squamous Epith Cells Negative /HPF (NEGATIVE) 03/01/23 16:48 Urine Bacteria Negative /HPF (NEGATIVE) 03/01/23 16:48 Ur Culture Indicated? No/not indicated 03/01/23 16:48 SARS-CoV-2 (PCR) Negative (NEGATIVE) 03/01/23 17:14 Influenza Type A (PCR) Negative (NEGATIVE) 03/01/23 17:14 Influenza Type B (PCR) Negative (NEGATIVE) 03/01/23 17:14 RSV (PCR) Negative (NEGATIVE) 03/01/23 17:14 Opioid Opioid Risk Tool Age (Hai box if 16-45): No History of Preadolescent Sexual Abuse: No Total: 0 Total Score Risk Category: Low Risk Copyright: Barrett MIRANDA predicting aberrant behaviors Discharge Plan Diagnosis Discharge Problem: Pneumonia Qualifiers: Pneumonia type: due to unspecified organism Laterality: bilateral Lung location: lower lobe of lung Qualified Code(s): J18.9 - Pneumonia, unspecified organism A-fib Qualifiers: Atrial fibrillation type: persistent (not longstanding) Qualified Code(s): I48.19 - Other persistent atrial fibrillation Fever Qualifiers: Fever type: unspecified Qualified Code(s): R50.9 - Fever, unspecified AMS (altered mental status) Qualifiers: Altered mental status type: transient alteration of awareness Qualified Code(s): R40.4 - Transient alteration of awareness CHF (congestive heart failure) Qualifiers: Heart failure type: combined systolic and diastolic Heart failure chronicity: acute on chronic Qualified Code(s): I50.43 - Acute on chronic combined systolic (congestive) and diastolic (congestive) heart failure Discharge Plan Patient Disposition: 09 ADMITTED INPATIENT Condition: Stable
[2023-03-01 16:55] LABS: APPEARANCE,URINE CLEAR (CLEAR); BILIRUBIN,URINE NEGATIVE (NEGATIVE); BLOOD/HEMOGLOBIN,URINE 1+ (NEGATIVE); COLOR,URINE STRAW (YELLOW); GLUCOSE, URINE NEGATIVE (NEGATIVE); KETONES,URINE NEGATIVE (NEGATIVE); LEUKOCYTE ESTERASE ,URINE NEGATIVE (NEGATIVE); NITRITES,URINE NEGATIVE (NEGATIVE); PROTEIN,URINE NEGATIVE (NEGATIVE); UROBILINOGEN,URINE NORMAL (NORMAL)
[2023-03-01] MEDS ORDERED: CARDIZEM INJ 50 MG VIAL IVP ONE (17:01)
[2023-03-01] MEDS ORDERED: CARDIZEM INJ 50 MG VIAL ONE (17:02)
[2023-03-01 17:07] LABS: BACTERIA,URINE NEGATIVE /HPF (NEGATIVE); RBC,URINE 0-2 /HPF (0-3); SQUAMOUS EPITHELIAL CELL,UR NEGATIVE /HPF (NEGATIVE)
[2023-03-01 17:20] LABS: BASOPHILS # (AUTO) 0.1 X10^3/uL (0.0-0.1); BASOPHILS % (AUTO) 0.8 % (0.2-1.0); EOSINOPHILS # (AUTO) 0.4 x10^3/uL (0.0-0.2); EOSINOPHILS % (AUTO) 3.7 % (0.9-2.9); HEMATOCRIT 33.9 % (36.0-47.0); HEMOGLOBIN 11.1 g/dL (12.0-16.0); LYMPHOCYTES # (AUTO) 0.7 X10^3/uL (1.3-2.9); LYMPHOCYTES % (AUTO) 6.2 % (21.0-51.0); MEAN CORPUSCULAR HEMOGLOBIN 30.3 pg (27.0-34.0); MEAN CORPUSCULAR HGB CONC 32.7 g/dL (33.0-35.0); MEAN CORPUSCULAR VOLUME 92.7 fL (80.0-100.0); MEAN PLATELET VOLUME 8.4 fL (7.4-11.0); MONOCYTES # (AUTO) 0.6 x10^3/uL (0.3-0.8); MONOCYTES % (AUTO) 5.7 % (0.0-13.0); NEUTROPHILS # (AUTO) 9.4 x10^3/uL (2.2-4.8); NEUTROPHILS % (AUTO) 83.6 % (42.0-75.0); PLATELET COUNT 348 X10^3/uL (150.0-450.0); RED BLOOD COUNT 3.65 X10^6/uL (3.5-5.4); RED CELL DISTRIBUTION WIDTH 14.4 % (11.6-16.5); WHITE BLOOD COUNT 11.2 X10^3/uL (3.6-10.0)
[2023-03-01 17:28] LABS: ALANINE AMINOTRANSFERASE 28 Units/L (12-78); ALBUMIN 3.8 g/dL (3.4-5.0); ALKALINE PHOSPHATASE 53 Units/L (46-116); ASPARTATE AMINO TRANSFERASE 37 Units/L (15-37); BLOOD UREA NITROGEN 22 mg/dL (7-18); CALCIUM 8.5 mg/dL (8.5-10.1); CARBON DIOXIDE 28.6 mmol/L (21-32); CHLORIDE 101 mmol/L (98-107); COR NA(FOR HYPERGLY) 137 mmol/L (136-145); CREATININE 0.63 mg/dL (0.55-1.02); GLUCOSE 111 mg/dL (65-99); POTASSIUM 4.2 mmol/L (3.5-5.1); SODIUM 137 mmol/L (136-145); TOTAL PROTEIN 6.8 g/dL (6.4-8.2); eGFR NON BLACK RACES > 60 (>60)
[2023-03-01 17:35] LABS: INR 1.19 (0.8-1.3)
[2023-03-01 18:43] LABS: AMMONIA < 10 umol/L (11-32)
[2023-03-01] MEDS ORDERED: MORPHINE SULFATE INJ 2 MG INJ IVP ONE ×2 (18:49→19:44)
[2023-03-01] MEDS ORDERED: ZOFRAN INJ 4 MG VIAL IVP ONE (18:49)
[2023-03-01 18:50] LABS: LACTIC ACID 1.3 mmol/L (0.4-2.0)
[2023-03-01] MEDS ORDERED: MORPHINE SULFATE INJ 2 MG INJ ONE ×2 (18:51→19:46)
[2023-03-01] MEDS ORDERED: ZOFRAN INJ 4 MG VIAL ONE (18:51)
[2023-03-01] MEDS ORDERED: LEVAQUIN PREMIX IV 500 MG 500 MG/100 ML BAG IV ONE ×2 (19:25→19:35)
--- NOTE | 2023-03-01 20:40 | CT ---
HISTORYShaking, confused, not feeling well. Upon arrival to ED found patient in Afib, confused to date, location, and medical hxSTUDYBRAIN W/O CONCOMPARISONFebruary 2022TECHNIQUEAxial non-contrast images of the head were obtained with coronal and sagittal reformats provided.Radiation dose: 841.24 mGy-cm total DLPFINDINGSNo abnormal areas of acute attenuation in the brain parenchyma.Person-white differentiation remains intact.No intracranial, extra-axial, fluid collection.No hemorrhage.Periventricular chronic microvascular disease.No mass, mass effect or midline shift.Age related brain parenchymal global atrophy.No ventriculomegaly.No acute fracture.Sinuses are well aerated.Mastoid air cells are well aerated.Globes and intra-orbital contents are unremarkable.IMPRESSIONNo acute intracranial abnormality identified.Electronically signed by: Matthew Fournier (Mar 01, 2023 20:40:21)
--- NOTE | 2023-03-01 20:44 | CT ---
HISTORYshaking, confused, not feeling well. Upon arrival to ED found patient in Afib, confused to date, location, and medical hxSTUDYABDOMEN/PELVIS W/O CONCOMPARISONTECHNIQUEMultiple axial images of the abdomen and pelvis were obtained from the lung bases to the pubic symphysis without the administration of IV contrast. Dose reduction techniques including Automated Exposure Control (AEC) and adjustment of mA and kV were utilized.FINDINGSThe ascending aorta measures up to 4.6 cm. The heart size is enlarged. There is mitral annular calcification and multi-vessel coronary atherosclerosis. There is no pathologic adenopathy. There is a moderate hiatal hernia. The airways are clear there is bronchial wall thickening. There is interstitial prominence in both lungs suggestive of atelectasis and some edema or infection. There are trace bilateral pleural effusions. The liver is grossly normal. The gallbladder is normal. The pancreas, spleen, adrenal glands are normal. The kidneys are normal in size without mass or stone. There is prominence of the left renal pelvis and left ureter but no obstructing stone is identified. There is a Villasenor catheter in the urinary bladder. The small bowel loops are normal. The appendix is normal. There is diverticulosis of the distal colon but no diverticulitis. The uterus has been removed. There is no adnexal mass. There is a fat containing right inguinal hernia. There is approximately 15 degrees of levoscoliosis with associated spondylolisthesis. There is severe degeneration in the right hip and mild to moderate degeneration in the left hip.IMPRESSION1. Nonspecific bibasilar opacity and trace effusions.2. Moderate hiatal hernia.3. Coronary in systemic atherosclerosis.4. Diverticulosis coli without diverticulitis.5. Fat containing right inguinal hernia.Electronically signed by: Lencho Patel (Mar 01, 2023 20:42:46)
[2023-03-01] MEDS ORDERED: NS 1,000 ML IV 1,000 ML ONE (21:26)
--- NOTE | 2023-03-01 21:56 | RAD ---
HISTORYshaking, confused, not feeling well. Upon arrival to ED found patient in Afib, confused to date, location, and medical hxSTUDYCHEST, 1 VIEWCOMPARISONFebruary 2022TECHNIQUEChest radiographic imaging, AP portable projection, 1 imageFINDINGSMild cardiomegaly.Diffuse increased interstitial markings.Left basilar airspace disease.No pleural effusion.No pneumothorax.No acute osseous abnormality.IMPRESSION1. Findings are concerning for acute cardiogenic edema.2. Left basilar airspace disease could represent atelectasis, infiltrate or scarring.Electronically signed by: Matthew Fournier (Mar 01, 2023 21:56:09)
[2023-03-01] MEDS ORDERED: NS 1,000 ML IV 1,000 ML IV SCH (22:00)
[2023-03-02] MEDS ORDERED: MORPHINE SULFATE INJ 2 MG INJ IVP PRN (00:19)
[2023-03-02 00:20] VITALS: BMI 22.4
[2023-03-02] MEDS: INVanz INJ 1 GRAM VIAL 1 G in NS 100 ML IV 100 ML IV SCH (04:43)
[2023-03-02 06:26] LABS: BASOPHILS % (AUTO) 0.5 % (0.2-1.0); EOSINOPHILS # (AUTO) 0.1 x10^3/uL (0.0-0.2); EOSINOPHILS % (AUTO) 1.5 % (0.9-2.9); HEMATOCRIT 28.3 % (36.0-47.0); HEMOGLOBIN 9.6 g/dL (12.0-16.0); LYMPHOCYTES # (AUTO) 1.2 X10^3/uL (1.3-2.9); MEAN CORPUSCULAR HEMOGLOBIN 30.8 pg (27.0-34.0); MEAN CORPUSCULAR HGB CONC 34.1 g/dL (33.0-35.0); MEAN CORPUSCULAR VOLUME 90.4 fL (80.0-100.0); MEAN PLATELET VOLUME 8.4 fL (7.4-11.0); MONOCYTES % (AUTO) 11.2 % (0.0-13.0); NEUTROPHILS # (AUTO) 6.4 x10^3/uL (2.2-4.8); NEUTROPHILS % (AUTO) 72.8 % (42.0-75.0); PLATELET COUNT 246 X10^3/uL (150.0-450.0); RED BLOOD COUNT 3.12 X10^6/uL (3.5-5.4); RED CELL DISTRIBUTION WIDTH 14.1 % (11.6-16.5); WHITE BLOOD COUNT 8.8 X10^3/uL (3.6-10.0)
[2023-03-02 06:45] LABS: ALANINE AMINOTRANSFERASE 18 Units/L (12-78); ALBUMIN 2.9 g/dL (3.4-5.0); ALKALINE PHOSPHATASE 40 Units/L (46-116); ASPARTATE AMINO TRANSFERASE 24 Units/L (15-37); BLOOD UREA NITROGEN 14 mg/dL (7-18); CALCIUM 7.8 mg/dL (8.5-10.1); CARBON DIOXIDE 26.5 mmol/L (21-32); CHLORIDE 101 mmol/L (98-107); COR CA(FOR HYPOALB) 8.7 mg/dL (8.5-10.1); CREATINE KINASE 68 Units/L (26-192); CREATININE 0.58 mg/dL (0.55-1.02); GLUCOSE 91 mg/dL (65-99); POTASSIUM 3.4 mmol/L (3.5-5.1); SODIUM 135 mmol/L (136-145); TOTAL PROTEIN 5.6 g/dL (6.4-8.2); eGFR NON BLACK RACES > 60 (>60)
[2023-03-02] MEDS ORDERED: CONSULT PHARMACY - POTASSIUM & MAGNESIUM XX SCH (09:00)
[2023-03-02] MEDS: NS + KCL 20 MEQ/L 1,000 ML IV SCH ×2 (09:13→21:01)
[2023-03-02] MEDS: FOLIC ACID TAB 1 MG PO SCH (09:14)
[2023-03-02] MEDS: ROBITUSSIN DM PO SCH ×4 (09:14→20:21)
[2023-03-02] MEDS: FLONASE NASAL SPRAY ENOSTRIL SCH (09:14)
[2023-03-02] MEDS: SYNTHROID 112 mcg TAB PO SCH (09:14)
[2023-03-02] MEDS: CLARITIN PO SCH (09:15)
[2023-03-02] MEDS: TOPROL XL PO SCH (09:15)
[2023-03-02] MEDS: VSL#3 PO SCH (09:15)
[2023-03-02] MEDS: BENICAR PO SCH (09:15)
[2023-03-02] MEDS: ELIQUIS PO SCH ×2 (09:15→20:22)
[2023-03-02] MEDS: MAG-OX TAB PO SCH ×2 (09:15→20:23)
--- NOTE | 2023-03-02 17:54 | DR.H&P ---
H&P - History & Physical for Day of: H&P Date: 03/01/23 - Chief Complaint Chief Complaint: FEVER, AMS - History of Present Illness History of Present Illness: PT IS 87 WF, ER ADMISSION AFTER PRESENTING WITH FEVER AND INCREASED CONFUSION. PT HAS BEEN BEING TREATED FOR A UTI ON AN OUTPT BASIS. FAMILY REPORTS FEVER AND CO "BULGING HERNIA" PT DENIES ANY N/V/D AT HOME. PT HAS PMH OF HTN, AFIB, OA AND MILD CONTROLLED VASCULAR DEMENTIA. - Past Medical History Past Medical History: Coronary Artery Disease, Hypertension, Dyslipidemia, Dementia, Anxiety, Hypothyroidism, Arthritis - Past Surgical History Surgical History: Hysterectomy - Family History Family Medical History: Diabetes Mellitus, Cancer, [place], Coronary Artery Disease, Heart Failure, Sudden Cardiac - Social History Does patient currently use any type of tobacco product: No Have you used tobacco products in the last 12 months: No Type of Tobacco Use: None Does any household member use tobacco: No Alcohol Use: None Drug Use: None - Review of Systems Constitutional: Fever, Weakness Eyes: No Symptoms Reported ENT: No Symptoms Reported Respiratory: No Symptoms Reported Cardiovascular: No Symptoms Reported Gastrointestinal: No Symptoms Reported Genitourinary: Frequency Musculoskeletal: No Symptoms Reported Skin: No Symptoms Reported Neurological: Weakness, Confusion - Physical Exam Vital Signs: Vital Signs Temperature 98.1 F Temperature 98.8 F Pulse Rate [Apical] 60 Pulse Rate [Apical] 70 Respiratory Rate 20 Respiratory Rate 20 Blood Pressure [Left Arm] 158/70 Blood Pressure [Left Arm] 125/59 O2 Sat by Pulse Oximetry 97 O2 Sat by Pulse Oximetry 96 Oriented: Person Eyes: Normal Ear: Normal Nose: Normal Throat: Normal Respiratory: RLL Diminished, LLL Diminished Cardiovascular: Irregular, Murmur : Normal Auscultation: Bowel Sounds: Normal Palpation: Other (REDUCIBLE RIGHT INGUINAL HERNIA) Tenderness: Normal Skin: Normal Musculoskeletal: Right, Left, Knee, Tender Mood Description: Calm Speech Pattern: Clear, Delayed - Assessment/Plan (1) Pneumonia Status: Acute Plan: ADMIT, CXR ON ADMISSION. RESP CONSULT. AIT SWAB AND ACUTE VIRAL RESP PANEL OBTAINED ON ADMISSION. CONFIRM HOME MEDICATION, RESUME ELIQUIS. CARIDAC MONITORING WITH SERIAL CE. BP CONTROL, IV ATBX THERAPY. BLOOD AND URINE CULTURES ORDERED ON ADMISSION (2) Abnormal cardiac enzyme level Status: Acute (3) Acute alteration in mental status Status: Acute (4) CAD (coronary artery disease) Status: Acute (5) A-fib Status: Acute (6) Urinary tract infection Status: Acute - Allergies Allergies/Adverse Reactions: Allergies Allergy/AdvReac Type Severity Reaction Status Date / Time amoxicillin Allergy Unknown Verified 03/01/23 22:41 clarithromycin [From Biaxin] Allergy Unknown Verified 03/01/23 22:41 penicillin V Allergy Unknown Verified 03/01/23 22:41 - Medications Home Medications: Home Medications Medication Instructions Recorded Confirmed apixaban 5 mg tablet (Eliquis) 5 mg PO BID 03/01/23 03/02/23 ergocalciferol (vitamin D2) 1,250 1,250 mcg PO QWEEK 03/01/23 03/02/23 mcg (50,000 unit) capsule fluticasone propionate 50 1 spray intranasal QDAY 03/01/23 03/01/23 mcg/actuation nasal spray,suspension folic acid 1 mg tablet 1 mg PO QDAY 03/01/23 03/02/23 levothyroxine 112 mcg tablet 112 mcg PO QDAY 03/01/23 03/02/23 loratadine 10 mg tablet 10 mg PO QDAY 03/01/23 03/01/23 metoprolol succinate 25 mg 25 mg PO QDAY 03/01/23 03/02/23 tablet,extended release 24 hr nitrofurantoin 100 mg PO BID 03/01/23 03/02/23 monohydrate/macrocrystals 100 mg capsule olmesartan 40 mg tablet 40 mg PO QDAY 03/01/23 03/02/23 simvastatin 20 mg tablet 20 mg PO QPM 03/01/23 03/02/23 famotidine 20 mg tablet 20 mg PO PRN PRN 03/02/23 03/02/23
[2023-03-02] MEDS: ZOCOR TAB 20 MG PO SCH (20:22)
--- NOTE | 2023-03-03 04:44 | RAD ---
PROCEDURE: Chest X-ray 1 View .HISTORY: Pneumonia and congestive heart failure.TECHNIQUE: AP portable done at 4:15 a.m..COMPARISON: 03/01/2023.TECHNICAL QUALITY: Satisfactory .FINDINGS:Unchanged prominent size heart.Mediastinum and hilar regions show no masses or lymphadenopathy .Normal central vascularity .Some improvement in the consolidation and atelectasis at the lung bases. No pleural fluid.No acute bony abnormality .IMPRESSION:Improved congestive heart failure.Electronically signed by: Eduardo Arias (Mar 03, 2023 04:42:11)
[2023-03-03 06:24] LABS: BASOPHILS # (AUTO) 0.1 X10^3/uL (0.0-0.1); BASOPHILS % (AUTO) 0.7 % (0.2-1.0); EOSINOPHILS # (AUTO) 0.3 x10^3/uL (0.0-0.2); EOSINOPHILS % (AUTO) 4.2 % (0.9-2.9); HEMATOCRIT 28.7 % (36.0-47.0); HEMOGLOBIN 9.6 g/dL (12.0-16.0); LYMPHOCYTES # (AUTO) 1.4 X10^3/uL (1.3-2.9); LYMPHOCYTES % (AUTO) 17.3 % (21.0-51.0); MEAN CORPUSCULAR HEMOGLOBIN 30.5 pg (27.0-34.0); MEAN CORPUSCULAR HGB CONC 33.5 g/dL (33.0-35.0); MEAN CORPUSCULAR VOLUME 91.3 fL (80.0-100.0); MEAN PLATELET VOLUME 8.5 fL (7.4-11.0); MONOCYTES # (AUTO) 1.2 x10^3/uL (0.3-0.8); MONOCYTES % (AUTO) 14.4 % (0.0-13.0); NEUTROPHILS # (AUTO) 5.2 x10^3/uL (2.2-4.8); NEUTROPHILS % (AUTO) 63.4 % (42.0-75.0); PLATELET COUNT 262 X10^3/uL (150.0-450.0); RED BLOOD COUNT 3.14 X10^6/uL (3.5-5.4); RED CELL DISTRIBUTION WIDTH 14.2 % (11.6-16.5); WHITE BLOOD COUNT 8.2 X10^3/uL (3.6-10.0)
[2023-03-03 06:39] LABS: ALANINE AMINOTRANSFERASE 20 Units/L (12-78); ALBUMIN 2.8 g/dL (3.4-5.0); ALKALINE PHOSPHATASE 39 Units/L (46-116); ASPARTATE AMINO TRANSFERASE 24 Units/L (15-37); BLOOD UREA NITROGEN 12 mg/dL (7-18); CALCIUM 7.7 mg/dL (8.5-10.1); CARBON DIOXIDE 26.1 mmol/L (21-32); CHLORIDE 102 mmol/L (98-107); COR CA(FOR HYPOALB) 8.7 mg/dL (8.5-10.1); CREATININE 0.54 mg/dL (0.55-1.02); GLUCOSE 89 mg/dL (65-99); MAGNESIUM 1.7 mg/dL (2.0-2.9); POTASSIUM 3.6 mmol/L (3.5-5.1); SODIUM 135 mmol/L (136-145); TOTAL PROTEIN 5.6 g/dL (6.4-8.2); eGFR NON BLACK RACES > 60 (>60)
[2023-03-03] MEDS ORDERED: CONSULT PHARMACY - POTASSIUM & MAGNESIUM XX SCH (07:00)
[2023-03-03] MEDS: VSL#3 PO SCH (08:55)
[2023-03-03] MEDS: TOPROL XL PO SCH (08:55)
[2023-03-03] MEDS: CLARITIN PO SCH (08:55)
[2023-03-03] MEDS: FLONASE NASAL SPRAY ENOSTRIL SCH (08:55)
[2023-03-03] MEDS: ELIQUIS PO SCH ×2 (08:55→20:37)
[2023-03-03] MEDS: ROBITUSSIN DM PO SCH ×4 (08:55→20:36)
[2023-03-03] MEDS: SYNTHROID 112 mcg TAB PO SCH (08:55)
[2023-03-03] MEDS: INVanz INJ 1 GRAM VIAL 1 G in NS 100 ML IV 100 ML IV SCH (08:55)
[2023-03-03] MEDS: BENICAR PO SCH (08:55)
[2023-03-03] MEDS: FOLIC ACID TAB 1 MG PO SCH (08:55)
[2023-03-03] MEDS: MAG-OX TAB PO SCH ×3 (09:26→20:46)
[2023-03-03] MEDS: NS + KCL 20 MEQ/L 1,000 ML IV SCH (10:00)
--- NOTE | 2023-03-03 18:22 | PCM.PROG ---
Progress Note - Progress Note for Day of Date of Exam: 03/03/23 - Subjective Subjective: PT IS 87WF, ER ADMISSION WITH AMS AND UTI. 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 VIRAL SWABS OBTAINED ON ADMISSION WERE NEGATIVE FOR RSV, FLU AND COVID. PT HAS PNEUMONIA ON ADMISSION CHEST XRAY WITH REPEAT AM CHEST XRAY SHOWING IMPROVEMENT IN CHF AND NO INFILTRATES. PT HAS IMPROVING APPETITE AND DENIES CHEST PAIN. HER TROPONIN LEVELS ARE TRENDING DOWN. PT BP IS STABLE AND SHE IS ON ELIQUIS FOR MANAGMENT OF AFIB, WHICH WE HAVE CONTINUED. - Past Medical Family Social History Past Med/Fam/Surg Hx: No changes since H&P Allergies: Allergies amoxicillin Allergy (Unknown, Verified 03/01/23 22:41) clarithromycin [From Biaxin] Allergy (Unknown, Verified 03/01/23 22:41) Reason: Drug allergy penicillin V Allergy (Unknown, Verified 03/01/23 22:41) Reason: Drug allergy - Review of Systems ROS: No change since H&P - Vital Signs and I&O's Vital Signs: Vital Signs Temperature 98.9 F Temperature 97.9 F Pulse Rate [Apical] 94 Pulse Rate [Apical] 63 Respiratory Rate 20 Respiratory Rate 20 Blood Pressure [Left Arm] 161/74 Blood Pressure [Left Arm] 166/82 Blood Pressure [Left Arm] 192/86 O2 Sat by Pulse Oximetry 94 O2 Sat by Pulse Oximetry 98 Intake and Output: Intake & Output 03/01/23 03/02/23 03/03/23 03/04/23 11:59 11:59 11:59 11:59 Intake Total 1107 / 1107 2106 / 2106 1202 / 1202 Output Total 1100 / 1100 940 / 940 800 / 800 Balance 7 / 1166 / 1166 402 / 402 - Physical Exam Oriented: Person Eyes: Normal Ear: Normal Nose: Normal Throat: Normal Respiratory: Diminished Cardiovascular: Irregular, Murmur : Normal Auscultation: Bowel Sounds: Normal Tenderness: Normal Skin: Normal Musculoskeletal: Right, Left, Knee, Tender Mood Description: Calm Speech Pattern: Clear - Laboratory and Diagnostics Result Diagrams: 03/03/23 05:22 03/03/23 05:22 Labs: 03/01/23 17:23 Blood Blood Culture - Preliminary 03/01/23 17:18 Blood Blood Culture - Preliminary 03/01/23 16:48 Urine,Clean Catch Urine Culture - Preliminary Laboratory WBC 8.2 X10^3/uL (3.6-10.0) 03/03/23 05:22 RBC 3.14 X10^6/uL (3.5-5.4) L 03/03/23 05:22 Hgb 9.6 g/dL (12.0-16.0) L 03/03/23 05:22 Hct 28.7 % (36.0-47.0) L 03/03/23 05:22 MCV 91.3 fL (80.0-100.0) 03/03/23 05:22 MCH 30.5 pg (27.0-34.0) 03/03/23 05:22 MCHC 33.5 g/dL (33.0-35.0) 03/03/23 05:22 RDW 14.2 % (11.6-16.5) 03/03/23 05:22 Plt Count 262 X10^3/uL (150.0-450.0) 03/03/23 05:22 MPV 8.5 fL (7.4-11.0) 03/03/23 05:22 Neut % (Auto) 63.4 % (42.0-75.0) 03/03/23 05:22 Lymph % (Auto) 17.3 % (21.0-51.0) L 03/03/23 05:22 [place] % (Auto) 14.4 % (0.0-13.0) H 03/03/23 05:22 Eos % (Auto) 4.2 % (0.9-2.9) H 03/03/23 05:22 Baso % (Auto) 0.7 % (0.2-1.0) 03/03/23 05:22 Neut # (Auto) 5.2 x10^3/uL (2.2-4.8) H 03/03/23 05:22 Lymph # (Auto) 1.4 X10^3/uL (1.3-2.9) 03/03/23 05:22 [place] # (Auto) 1.2 x10^3/uL (0.3-0.8) H 03/03/23 05:22 Eos # (Auto) 0.3 x10^3/uL (0.0-0.2) H 03/03/23 05:22 Baso # (Auto) 0.1 X10^3/uL (0.0-0.1) 03/03/23 05:22 Absolute Nucleated RBC 0.0 /100WBC 03/03/23 05:22 PT 14.9 SECONDS (11.8-14.3) 03/01/23 16:28 INR Target Range - 03/01/23 16:28 INR 1.19 (0.8-1.3) 03/01/23 16:28 APTT 33.9 SECONDS (22.9-36.5) 03/01/23 16:28 PTT Comment - 03/01/23 16:28 Sodium 135 mmol/L (136-145) L 03/03/23 05:22 Corrected Sodium TNP 03/03/23 05:22 Potassium 3.6 mmol/L (3.5-5.1) 03/03/23 05:22 Chloride 102 mmol/L (98-107) 03/03/23 05:22 Carbon Dioxide 26.1 mmol/L (21-32) 03/03/23 05:22 BUN 12 mg/dL (7-18) 03/03/23 05:22 Creatinine 0.54 mg/dL (0.55-1.02) L 03/03/23 05:22 Est GFR (MDRD) Af Amer > 60 (>60) 03/03/23 05:22 Est GFR (MDRD) Non-Af > 60 (>60) 03/03/23 05:22 Glucose 89 mg/dL (65-99) 03/03/23 05:22 Lactic Acid 1.3 mmol/L (0.4-2.0) 03/01/23 18:20 Calcium 7.7 mg/dL (8.5-10.1) L 03/03/23 05:22 Corrected Calcium 8.7 mg/dL (8.5-10.1) 03/03/23 05:22 Magnesium 1.7 mg/dL (2.0-2.9) L 03/03/23 05:22 Total Bilirubin 0.50 mg/dL (0.2-1.0) 03/03/23 05:22 AST 24 Units/L (15-37) 03/03/23 05:22 ALT 20 Units/L (12-78) 03/03/23 05:22 Alkaline Phosphatase 39 Units/L (46-116) L 03/03/23 05:22 Ammonia < 10 umol/L (11-32) L 03/01/23 18:20 Creatine Kinase 66 Units/L (26-192) 03/02/23 19:55 Troponin I High Sens 71.4 ng/L (4.0-60.0) H* 03/03/23 14:53 B-Natriuretic Peptide 392 pg/mL (0-79) H 03/01/23 16:28 Total Protein 5.6 g/dL (6.4-8.2) L 03/03/23 05:22 Albumin 2.8 g/dL (3.4-5.0) L 03/03/23 05:22 Globulin 2.8 g/dL (2.5-4.5) 03/03/23 05:22 Albumin/Globulin Ratio 1.0 Ratio (1.1-2.1) L 03/03/23 05:22 Specimen Type Catherized urine 03/01/23 16:48 Urine Color Straw (YELLOW) 03/01/23 16:48 Urine Appearance Clear (CLEAR) 03/01/23 16:48 Urine pH 6.0 (5.0 - 8.0) 03/01/23 16:48 Ur Specific [place] 1.020 (1.000-1.030) 03/01/23 16:48 Urine Protein Negative (NEGATIVE) 03/01/23 16:48 Urine Glucose (UA) Negative (NEGATIVE) 03/01/23 16:48 Urine Ketones Negative (NEGATIVE) 03/01/23 16:48 Urine Blood 1+ (NEGATIVE) 03/01/23 16:48 Urine Nitrite Negative (NEGATIVE) 03/01/23 16:48 Urine Bilirubin Negative (NEGATIVE) 03/01/23 16:48 Urine Urobilinogen Normal (NORMAL) 03/01/23 16:48 Ur Leukocyte Esterase Negative (NEGATIVE) 03/01/23 16:48 Urine RBC 0-2 /HPF (0-3) 03/01/23 16:48 Urine WBC None seen /HPF (0-5) 03/01/23 16:48 Ur Squamous Epith Cells Negative /HPF (NEGATIVE) 03/01/23 16:48 Urine Bacteria Negative /HPF (NEGATIVE) 03/01/23 16:48 Ur Culture Indicated? No/not indicated 03/01/23 16:48 SARS-CoV-2 (PCR) Negative (NEGATIVE) 03/02/23 10:45 Influenza Type A (PCR) Negative (NEGATIVE) 03/02/23 10:45 Influenza Type B (PCR) Negative (NEGATIVE) 03/02/23 10:45 RSV (PCR) Negative (NEGATIVE) 03/02/23 10:45 - Plan (1) Pneumonia Status: Acute Plan: AM CHEST XRAY. RESP CONSULT. AIT SWAB AND ACUTE VIRAL RESP PANEL OBTAINED ON ADMISSION. CONFIRM HOME MEDICATION, RESUME ELIQUIS. CARIDAC MONITORING WITH SERIAL CE. BP CONTROL, IV ATBX THERAPY. BLOOD AND URINE CULTURES ORDERED ON ADMISSION (2) Abnormal cardiac enzyme level Status: Acute (3) Acute alteration in mental status Status: Acute (4) CAD (coronary artery disease) Status: Acute (5) A-fib Status: Acute (6) Urinary tract infection Status: Acute
[2023-03-03] MEDS: ZOCOR TAB 20 MG PO SCH (20:37)
[2023-03-03] MEDS: TYLENOL 325 MG TAB PO PRN (21:13)
[2023-03-04] MEDS: NS + KCL 20 MEQ/L 1,000 ML IV SCH ×2 (01:28→20:30)
[2023-03-04 06:12] LABS: BASOPHILS # (AUTO) 0.1 X10^3/uL (0.0-0.1); BASOPHILS % (AUTO) 0.9 % (0.2-1.0); EOSINOPHILS # (AUTO) 0.3 x10^3/uL (0.0-0.2); EOSINOPHILS % (AUTO) 3.7 % (0.9-2.9); HEMOGLOBIN 10.2 g/dL (12.0-16.0); LYMPHOCYTES # (AUTO) 1.5 X10^3/uL (1.3-2.9); LYMPHOCYTES % (AUTO) 19.4 % (21.0-51.0); MEAN CORPUSCULAR HEMOGLOBIN 30.1 pg (27.0-34.0); MEAN CORPUSCULAR VOLUME 91.3 fL (80.0-100.0); MEAN PLATELET VOLUME 8.5 fL (7.4-11.0); MONOCYTES # (AUTO) 0.9 x10^3/uL (0.3-0.8); MONOCYTES % (AUTO) 12.1 % (0.0-13.0); NEUTROPHILS % (AUTO) 63.9 % (42.0-75.0); PLATELET COUNT 267 X10^3/uL (150.0-450.0); RED BLOOD COUNT 3.39 X10^6/uL (3.5-5.4); RED CELL DISTRIBUTION WIDTH 14.2 % (11.6-16.5); WHITE BLOOD COUNT 7.8 X10^3/uL (3.6-10.0)
[2023-03-04 06:25] LABS: ALANINE AMINOTRANSFERASE 23 Units/L (12-78); ALBUMIN 3.1 g/dL (3.4-5.0); ALKALINE PHOSPHATASE 45 Units/L (46-116); ASPARTATE AMINO TRANSFERASE 30 Units/L (15-37); BLOOD UREA NITROGEN 9 mg/dL (7-18); CALCIUM 7.9 mg/dL (8.5-10.1); CARBON DIOXIDE 30.1 mmol/L (21-32); CHLORIDE 99 mmol/L (98-107); COR CA(FOR HYPOALB) 8.6 mg/dL (8.5-10.1); CREATININE 0.47 mg/dL (0.55-1.02); GLUCOSE 90 mg/dL (65-99); MAGNESIUM 1.9 mg/dL (2.0-2.9); POTASSIUM 3.7 mmol/L (3.5-5.1); SODIUM 136 mmol/L (136-145); eGFR NON BLACK RACES > 60 (>60)
[2023-03-04] MEDS ORDERED: CONSULT PHARMACY - POTASSIUM & MAGNESIUM XX SCH (07:00)
[2023-03-04] MEDS: ROBITUSSIN DM PO SCH ×3 (09:00→20:30)
[2023-03-04] MEDS ORDERED: K-DUR TAB 20 MEQ PO SCH (09:00)
[2023-03-04] MEDS: INVanz INJ 1 GRAM VIAL 1 G in NS 100 ML IV 100 ML IV SCH (09:00)
[2023-03-04] MEDS: CLARITIN PO SCH (09:01)
[2023-03-04] MEDS: FOLIC ACID TAB 1 MG PO SCH (09:01)
[2023-03-04] MEDS: BENICAR PO SCH (09:01)
[2023-03-04] MEDS: TOPROL XL PO SCH (09:01)
[2023-03-04] MEDS: MAG-OX TAB PO SCH ×4 (09:01→21:22)
[2023-03-04] MEDS: ELIQUIS PO SCH ×2 (09:01→20:30)
[2023-03-04] MEDS: SYNTHROID 112 mcg TAB PO SCH (09:01)
[2023-03-04] MEDS: FLONASE NASAL SPRAY ENOSTRIL SCH (09:02)
[2023-03-04] MEDS: VSL#3 PO SCH (09:02)
[2023-03-04] MEDS ORDERED: LASIX IVP ONE (09:33)
[2023-03-04] MEDS ORDERED: K-DUR TAB 20 MEQ PO ONE (09:34)
[2023-03-04] MEDS ORDERED: SEROquel TAB 25 mg PO ONE ×2 (13:26→13:30)
--- NOTE | 2023-03-04 17:43 | PCM.PROG ---
Progress Note - Progress Note for Day of Date of Exam: 03/04/23 - Subjective Subjective: PT IS 87WF, ER ADMISSION WITH AMS AND UTI. 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 VIRAL SWABS OBTAINED ON ADMISSION WERE NEGATIVE FOR RSV, FLU AND COVID. PT HAS PNEUMONIA ON ADMISSION CHEST XRAY WITH REPEAT AM CHEST XRAY SHOWING IMPROVEMENT IN CHF AND NO INFILTRATES. HER LUNG BASES WERE MORE DIMINSHED THIS MORNING AND PLAN TO REPEAT CXR AND ONE TIME DOSE OF LASIX 40IV WITH POTASSIUM PO.PT HAS IMPROVING APPETITE AND DENIES CHEST PAIN. HER TROPONIN LEVELS ARE TRENDING DOWN. PT BP IS STABLE AND SHE IS ON ELIQUIS FOR MANAGMENT OF AFIB, WHICH WE HAVE CONTINUED. - Past Medical Family Social History Past Med/Fam/Surg Hx: No changes since H&P Allergies: Allergies amoxicillin Allergy (Unknown, Verified 03/01/23 22:41) clarithromycin [From Biaxin] Allergy (Unknown, Verified 03/01/23 22:41) Reason: Drug allergy penicillin V Allergy (Unknown, Verified 03/01/23 22:41) Reason: Drug allergy - Review of Systems ROS: No change since H&P - Vital Signs and I&O's Vital Signs: Vital Signs Temperature 97.7 F Temperature 97.6 F Pulse Rate [Apical] 66 Pulse Rate [Apical] 73 Respiratory Rate 20 Respiratory Rate 18 Blood Pressure [Left Arm] 141/85 Blood Pressure [Left Arm] 189/84 O2 Sat by Pulse Oximetry 96 O2 Sat by Pulse Oximetry 93 Intake and Output: Intake & Output 03/02/23 03/03/23 03/04/23 03/05/23 11:59 11:59 11:59 11:59 Intake Total 1107 / 1107 2106 / 2106 2705 / 2705 777 / 777 Output Total 1100 / 1100 940 / 940 2640 / 2640 3900 / 3900 Balance 7 / 1166 / 1166 65 / 65 -3123 / -3123 - Physical Exam Oriented: Person Eyes: Normal Ear: Normal Nose: Normal Throat: Normal Respiratory: Diminished Cardiovascular: Irregular, Murmur : Normal Auscultation: Bowel Sounds: Normal Tenderness: Normal Skin: Normal Musculoskeletal: Right, Left, Knee, Tender Mood Description: Calm Speech Pattern: Clear - Laboratory and Diagnostics Result Diagrams: 03/04/23 05:29 03/04/23 05:29 Labs: 03/01/23 16:48 Urine,Clean Catch Urine Culture - Final 03/01/23 17:23 Blood Blood Culture - Preliminary 03/01/23 17:18 Blood Blood Culture - Preliminary Laboratory WBC 7.8 X10^3/uL (3.6-10.0) 03/04/23 05:29 RBC 3.39 X10^6/uL (3.5-5.4) L 03/04/23 05:29 Hgb 10.2 g/dL (12.0-16.0) L 03/04/23 05:29 Hct 31.0 % (36.0-47.0) L 03/04/23 05:29 MCV 91.3 fL (80.0-100.0) 03/04/23 05:29 MCH 30.1 pg (27.0-34.0) 03/04/23 05:29 MCHC 33.0 g/dL (33.0-35.0) 03/04/23 05:29 RDW 14.2 % (11.6-16.5) 03/04/23 05:29 Plt Count 267 X10^3/uL (150.0-450.0) 03/04/23 05:29 MPV 8.5 fL (7.4-11.0) 03/04/23 05:29 Neut % (Auto) 63.9 % (42.0-75.0) 03/04/23 05:29 Lymph % (Auto) 19.4 % (21.0-51.0) L 03/04/23 05:29 [place] % (Auto) 12.1 % (0.0-13.0) 03/04/23 05:29 Eos % (Auto) 3.7 % (0.9-2.9) H 03/04/23 05:29 Baso % (Auto) 0.9 % (0.2-1.0) 03/04/23 05:29 Neut # (Auto) 5.0 x10^3/uL (2.2-4.8) H 03/04/23 05:29 Lymph # (Auto) 1.5 X10^3/uL (1.3-2.9) 03/04/23 05:29 [place] # (Auto) 0.9 x10^3/uL (0.3-0.8) H 03/04/23 05:29 Eos # (Auto) 0.3 x10^3/uL (0.0-0.2) H 03/04/23 05:29 Baso # (Auto) 0.1 X10^3/uL (0.0-0.1) 03/04/23 05:29 Absolute Nucleated RBC 0.0 /100WBC 03/04/23 05:29 PT 14.9 SECONDS (11.8-14.3) 03/01/23 16:28 INR Target Range - 03/01/23 16:28 INR 1.19 (0.8-1.3) 03/01/23 16:28 APTT 33.9 SECONDS (22.9-36.5) 03/01/23 16:28 PTT Comment - 03/01/23 16:28 Sodium 136 mmol/L (136-145) 03/04/23 05:29 Corrected Sodium TNP 03/04/23 05:29 Potassium 3.7 mmol/L (3.5-5.1) 03/04/23 05:29 Chloride 99 mmol/L (98-107) 03/04/23 05:29 Carbon Dioxide 30.1 mmol/L (21-32) 03/04/23 05:29 BUN 9 mg/dL (7-18) 03/04/23 05:29 Creatinine 0.47 mg/dL (0.55-1.02) L 03/04/23 05:29 Est GFR (MDRD) Af Amer > 60 (>60) 03/04/23 05:29 Est GFR (MDRD) Non-Af > 60 (>60) 03/04/23 05:29 Glucose 90 mg/dL (65-99) 03/04/23 05:29 Lactic Acid 1.3 mmol/L (0.4-2.0) 03/01/23 18:20 Calcium 7.9 mg/dL (8.5-10.1) L 03/04/23 05:29 Corrected Calcium 8.6 mg/dL (8.5-10.1) 03/04/23 05:29 Magnesium 1.9 mg/dL (2.0-2.9) L 03/04/23 05:29 Total Bilirubin 0.60 mg/dL (0.2-1.0) 03/04/23 05:29 AST 30 Units/L (15-37) 03/04/23 05:29 ALT 23 Units/L (12-78) 03/04/23 05:29 Alkaline Phosphatase 45 Units/L (46-116) L 03/04/23 05:29 Ammonia < 10 umol/L (11-32) L 03/01/23 18:20 Creatine Kinase 66 Units/L (26-192) 03/02/23 19:55 Troponin I High Sens 73.6 ng/L (4.0-60.0) H* 03/03/23 20:30 B-Natriuretic Peptide 514 pg/mL (0-79) H* 03/04/23 05:29 Total Protein 6.0 g/dL (6.4-8.2) L 03/04/23 05:29 Albumin 3.1 g/dL (3.4-5.0) L 03/04/23 05:29 Globulin 2.9 g/dL (2.5-4.5) 03/04/23 05:29 Albumin/Globulin Ratio 1.1 Ratio (1.1-2.1) 03/04/23 05:29 Specimen Type Catherized urine 03/01/23 16:48 Urine Color Straw (YELLOW) 03/01/23 16:48 Urine Appearance Clear (CLEAR) 03/01/23 16:48 Urine pH 6.0 (5.0 - 8.0) 03/01/23 16:48 Ur Specific [place] 1.020 (1.000-1.030) 03/01/23 16:48 Urine Protein Negative (NEGATIVE) 03/01/23 16:48 Urine Glucose (UA) Negative (NEGATIVE) 03/01/23 16:48 Urine Ketones Negative (NEGATIVE) 03/01/23 16:48 Urine Blood 1+ (NEGATIVE) 03/01/23 16:48 Urine Nitrite Negative (NEGATIVE) 03/01/23 16:48 Urine Bilirubin Negative (NEGATIVE) 03/01/23 16:48 Urine Urobilinogen Normal (NORMAL) 03/01/23 16:48 Ur Leukocyte Esterase Negative (NEGATIVE) 03/01/23 16:48 Urine RBC 0-2 /HPF (0-3) 03/01/23 16:48 Urine WBC None seen /HPF (0-5) 03/01/23 16:48 Ur Squamous Epith Cells Negative /HPF (NEGATIVE) 03/01/23 16:48 Urine Bacteria Negative /HPF (NEGATIVE) 03/01/23 16:48 Ur Culture Indicated? No/not indicated 03/01/23 16:48 SARS-CoV-2 (PCR) Negative (NEGATIVE) 03/02/23 10:45 Influenza Type A (PCR) Negative (NEGATIVE) 03/02/23 10:45 Influenza Type B (PCR) Negative (NEGATIVE) 03/02/23 10:45 RSV (PCR) Negative (NEGATIVE) 03/02/23 10:45 Resp Viral Panel (PCR) See scanned report 03/02/23 10:29 - Plan (1) Pneumonia Status: Acute Plan: AM CHEST XRAY. RESP CONSULT. AIT SWAB AND ACUTE VIRAL RESP PANEL OBTAINED ON ADMISSION. CONFIRM HOME MEDICATION, RESUME ELIQUIS. CARIDAC MONITORING WITH SERIAL CE. BP CONTROL, IV ATBX THERAPY. BLOOD AND URINE CULTURES ORDERED ON ADMISSION (2) Abnormal cardiac enzyme level Status: Acute (3) Acute alteration in mental status Status: Acute (4) CAD (coronary artery disease) Status: Acute (5) A-fib Status: Acute (6) Urinary tract infection Status: Acute
--- NOTE | 2023-03-04 19:35 | RAD ---
HISTORYCHFSTUDYCHEST, 1 VIEWCOMPARISONAugust 2022 at 4:15 a.m.[facility], AP portable projection, 1 imageFINDINGSMild cardiomegaly.Increased interstitial markings; particularly in the perihilar regions. Interstitial markings are slightly more prominent than on the previous exam.No focal airspace disease.No pleural effusion.No pneumothorax.No acute osseous abnormality.IMPRESSIONFindings are consistent with the given history of acute CHF. Interstitial markings are slightly more prominent than on the previous exam.Electronically signed by: Matthew Fournier (Mar 04, 2023 19:33:36)
[2023-03-04] MEDS: SEROquel TAB 25 mg PO SCH (20:25)
[2023-03-04] MEDS: ZOCOR TAB 20 MG PO SCH (21:22)
[2023-03-05] MEDS: NS + KCL 20 MEQ/L 1,000 ML IV SCH ×2 (03:00→17:00)
[2023-03-05 06:13] LABS: BASOPHILS # (AUTO) 0.1 X10^3/uL (0.0-0.1); BASOPHILS % (AUTO) 1.1 % (0.2-1.0); EOSINOPHILS # (AUTO) 0.2 x10^3/uL (0.0-0.2); EOSINOPHILS % (AUTO) 2.9 % (0.9-2.9); HEMATOCRIT 30.3 % (36.0-47.0); HEMOGLOBIN 10.3 g/dL (12.0-16.0); LYMPHOCYTES # (AUTO) 1.4 X10^3/uL (1.3-2.9); MEAN CORPUSCULAR HEMOGLOBIN 30.8 pg (27.0-34.0); MEAN CORPUSCULAR VOLUME 90.6 fL (80.0-100.0); MEAN PLATELET VOLUME 8.5 fL (7.4-11.0); MONOCYTES # (AUTO) 0.9 x10^3/uL (0.3-0.8); MONOCYTES % (AUTO) 13.5 % (0.0-13.0); NEUTROPHILS # (AUTO) 4.2 x10^3/uL (2.2-4.8); NEUTROPHILS % (AUTO) 61.5 % (42.0-75.0); PLATELET COUNT 246 X10^3/uL (150.0-450.0); RED BLOOD COUNT 3.34 X10^6/uL (3.5-5.4); RED CELL DISTRIBUTION WIDTH 13.6 % (11.6-16.5); WHITE BLOOD COUNT 6.8 X10^3/uL (3.6-10.0)
[2023-03-05 06:28] LABS: ALANINE AMINOTRANSFERASE 21 Units/L (12-78); ALBUMIN 2.9 g/dL (3.4-5.0); ALKALINE PHOSPHATASE 44 Units/L (46-116); ASPARTATE AMINO TRANSFERASE 25 Units/L (15-37); BLOOD UREA NITROGEN 10 mg/dL (7-18); CALCIUM 7.9 mg/dL (8.5-10.1); CARBON DIOXIDE 30.8 mmol/L (21-32); CHLORIDE 97 mmol/L (98-107); COR CA(FOR HYPOALB) 8.8 mg/dL (8.5-10.1); CREATININE 0.52 mg/dL (0.55-1.02); GLUCOSE 85 mg/dL (65-99); MAGNESIUM 1.8 mg/dL (2.0-2.9); POTASSIUM 3.8 mmol/L (3.5-5.1); SODIUM 133 mmol/L (136-145); TOTAL PROTEIN 5.8 g/dL (6.4-8.2); eGFR NON BLACK RACES > 60 (>60)
[2023-03-05] MEDS: ROBITUSSIN DM PO SCH ×5 (06:47→21:42)
[2023-03-05] MEDS ORDERED: CONSULT PHARMACY - POTASSIUM & MAGNESIUM XX SCH (07:00)
[2023-03-05] MEDS ORDERED: K-DUR TAB 20 MEQ PO SCH (09:00)
[2023-03-05] MEDS ORDERED: MAG-OX TAB PO SCH (09:00)
[2023-03-05] MEDS: FOLIC ACID TAB 1 MG PO SCH (09:07)
[2023-03-05] MEDS: TOPROL XL PO SCH (09:07)
[2023-03-05] MEDS: SYNTHROID 112 mcg TAB PO SCH (09:07)
[2023-03-05] MEDS: ELIQUIS PO SCH ×2 (09:07→21:44)
[2023-03-05] MEDS: BENICAR PO SCH (09:07)
[2023-03-05] MEDS: CLARITIN PO SCH (09:07)
[2023-03-05] MEDS: MACROBID CAP 100 MG EXT REL PO SCH ×2 (09:08→21:41)
[2023-03-05] MEDS: INVanz INJ 1 GRAM VIAL 1 G in NS 100 ML IV 100 ML IV SCH (09:08)
[2023-03-05] MEDS: VSL#3 PO SCH (09:08)
[2023-03-05] MEDS: FLONASE NASAL SPRAY ENOSTRIL SCH (09:08)
[2023-03-05] MEDS ORDERED: ZOFRAN INJ 4 MG VIAL IVP PRN (17:32)
[2023-03-05] MEDS ORDERED: ZOFRAN INJ 4 MG VIAL ONE (17:35)
[2023-03-05] MEDS ORDERED: MAG-OX TAB ONE (19:04)
[2023-03-05] MEDS: ZOCOR TAB 20 MG PO SCH (21:41)
[2023-03-05] MEDS: SEROquel TAB 25 mg PO SCH (21:42)
[2023-03-05] MEDS: MAG-OX TAB PO SCH (21:42)
[2023-03-06] MEDS: NS + KCL 20 MEQ/L 1,000 ML IV SCH (04:45)
[2023-03-06 07:17] LABS: BASOPHILS # (AUTO) 0.1 X10^3/uL (0.0-0.1); BASOPHILS % (AUTO) 0.4 % (0.2-1.0); EOSINOPHILS # (AUTO) 0.2 x10^3/uL (0.0-0.2); EOSINOPHILS % (AUTO) 2.1 % (0.9-2.9); HEMATOCRIT 32.1 % (36.0-47.0); HEMOGLOBIN 10.6 g/dL (12.0-16.0); LYMPHOCYTES # (AUTO) 0.5 X10^3/uL (1.3-2.9); LYMPHOCYTES % (AUTO) 4.2 % (21.0-51.0); MEAN CORPUSCULAR HEMOGLOBIN 30.2 pg (27.0-34.0); MEAN CORPUSCULAR HGB CONC 32.9 g/dL (33.0-35.0); MEAN CORPUSCULAR VOLUME 91.7 fL (80.0-100.0); MEAN PLATELET VOLUME 8.8 fL (7.4-11.0); MONOCYTES # (AUTO) 0.7 x10^3/uL (0.3-0.8); MONOCYTES % (AUTO) 6.2 % (0.0-13.0); NEUTROPHILS # (AUTO) 10.1 x10^3/uL (2.2-4.8); NEUTROPHILS % (AUTO) 87.1 % (42.0-75.0); PLATELET COUNT 286 X10^3/uL (150.0-450.0); RED CELL DISTRIBUTION WIDTH 13.5 % (11.6-16.5); WHITE BLOOD COUNT 11.6 X10^3/uL (3.6-10.0)
[2023-03-06 07:24] LABS: ALANINE AMINOTRANSFERASE 20 Units/L (12-78); ALKALINE PHOSPHATASE 48 Units/L (46-116); ASPARTATE AMINO TRANSFERASE 22 Units/L (15-37); BLOOD UREA NITROGEN 13 mg/dL (7-18); CALCIUM 7.9 mg/dL (8.5-10.1); CARBON DIOXIDE 29.2 mmol/L (21-32); CHLORIDE 96 mmol/L (98-107); COR CA(FOR HYPOALB) 8.7 mg/dL (8.5-10.1); GLUCOSE 91 mg/dL (65-99); MAGNESIUM 1.9 mg/dL (2.0-2.9); POTASSIUM 4.1 mmol/L (3.5-5.1); SODIUM 130 mmol/L (136-145); eGFR NON BLACK RACES > 60 (>60)
[2023-03-06] MEDS: TOPROL XL PO SCH (09:08)
[2023-03-06] MEDS: SYNTHROID 112 mcg TAB PO SCH (09:08)
[2023-03-06] MEDS: ROBITUSSIN DM PO SCH ×4 (09:08→20:33)
[2023-03-06] MEDS: VSL#3 PO SCH (09:08)
[2023-03-06] MEDS: INVanz INJ 1 GRAM VIAL 1 G in NS 100 ML IV 100 ML IV SCH (09:08)
[2023-03-06] MEDS: MAG-OX TAB PO SCH ×2 (09:08→20:33)
[2023-03-06] MEDS: CLARITIN PO SCH (09:09)
[2023-03-06] MEDS: FOLIC ACID TAB 1 MG PO SCH (09:09)
[2023-03-06] MEDS: MACROBID CAP 100 MG EXT REL PO SCH ×2 (09:09→20:33)
[2023-03-06] MEDS: ELIQUIS PO SCH ×2 (09:09→20:33)
[2023-03-06] MEDS: BENICAR PO SCH (09:09)
[2023-03-06] MEDS: FLONASE NASAL SPRAY ENOSTRIL SCH (09:09)
--- NOTE | 2023-03-06 11:10 | RAD ---
HISTORYPneumonia CHFSTUDYAP chestCOMPARISONAugust 2022FINDINGSHeart size is stable and unchanged. There is increasing vascular congestion and airspace involvement in the perihilar and lower lobe areas. No pneumothorax or large pleural effusion is evident.IMPRESSIONFindings consistent with slight progression of CHF/edema. Associated pneumonia may be present.Electronically signed by: FOX MRAI (Mar 06, 2023 11:09:55)
--- NOTE | 2023-03-06 11:21 | PCM.PROG ---
Progress Note Progress Note for Day of Date of Exam: 03/06/23 Subjective Subjective: Patient seen at bedside, no acute events overnight. She denies any complaints today. She is being treated for AMS, CHF exacerbation and pneumonia. She is currently on IV antibiotics. Patient was stable for discharge yesterday but family prefers patient to go to rehab. CM will work on rehab placement. Labs/imaging reviewed - Hgb 10.6 Na 130 BNP 486 - Blood Cx and Urine Cx: no growth - CXR: Findings consistent with slight progression of CHF/edema. Associated pneumonia may be present. Plan: Continue current treatment with IV antibiotics. Resume home lasix dose. Stop IVF. Monitor I/Os. PT/OT as tolerated. Monitor AM labs/imaging. CM to work on placement to rehab. Past Medical Family Social History Past Med/Fam/Surg Hx: No changes since H&P Allergies: Allergies amoxicillin Allergy (Unknown, Verified 03/01/23 22:41) clarithromycin [From Biaxin] Allergy (Unknown, Verified 03/01/23 22:41) Reason: Drug allergy penicillin V Allergy (Unknown, Verified 03/01/23 22:41) Reason: Drug allergy Review of Systems ROS: No change since H&P Vital Signs and I&O's Vital Signs: Vital Signs Temperature 98.8 F Pulse Rate [Apical] 73 Respiratory Rate 18 Blood Pressure [Left Arm] 154/72 O2 Sat by Pulse Oximetry 94 Intake and Output: Intake & Output 03/03/23 03/04/23 03/05/23 03/06/23 23:59 23:59 23:59 23:59 Intake Total 2910 / 2910 1828 / 1828 2654 / 2654 782 / 782 Output Total 2080 / 2080 5100 / 5100 200 / 200 Balance 830 / 830 -3272 / -3272 2454 / 2454 782 / 782 Physical Exam Oriented: Person Eyes: Normal Ear: Normal Nose: Normal Throat: Normal Respiratory: Diminished Cardiovascular: Irregular and Murmur Auscultation: Bowel Sounds: Normal Tenderness: Normal Skin: Normal Mood Description: Calm Speech Pattern: Clear Laboratory and Diagnostics 03/06/23 06:37 03/06/23 06:37 Labs: 03/01/23 16:48 Urine,Clean Catch Urine Culture - Final 03/01/23 17:23 Blood Blood Culture - Preliminary 03/01/23 17:18 Blood Blood Culture - Preliminary Laboratory WBC 11.6 X10^3/uL (3.6-10.0) H 03/06/23 06:37 RBC 3.50 X10^6/uL (3.5-5.4) 03/06/23 06:37 Hgb 10.6 g/dL (12.0-16.0) L 03/06/23 06:37 Hct 32.1 % (36.0-47.0) L 03/06/23 06:37 MCV 91.7 fL (80.0-100.0) 03/06/23 06:37 MCH 30.2 pg (27.0-34.0) 03/06/23 06:37 MCHC 32.9 g/dL (33.0-35.0) L 03/06/23 06:37 RDW 13.5 % (11.6-16.5) 03/06/23 06:37 Plt Count 286 X10^3/uL (150.0-450.0) 03/06/23 06:37 MPV 8.8 fL (7.4-11.0) 03/06/23 06:37 Neut % (Auto) 87.1 % (42.0-75.0) H 03/06/23 06:37 Lymph % (Auto) 4.2 % (21.0-51.0) L 03/06/23 06:37 [place] % (Auto) 6.2 % (0.0-13.0) 03/06/23 06:37 Eos % (Auto) 2.1 % (0.9-2.9) 03/06/23 06:37 Baso % (Auto) 0.4 % (0.2-1.0) 03/06/23 06:37 Neut # (Auto) 10.1 x10^3/uL (2.2-4.8) H 03/06/23 06:37 Lymph # (Auto) 0.5 X10^3/uL (1.3-2.9) L 03/06/23 06:37 [place] # (Auto) 0.7 x10^3/uL (0.3-0.8) 03/06/23 06:37 Eos # (Auto) 0.2 x10^3/uL (0.0-0.2) 03/06/23 06:37 Baso # (Auto) 0.1 X10^3/uL (0.0-0.1) 03/06/23 06:37 Absolute Nucleated RBC 0.0 /100WBC 03/06/23 06:37 PT 14.9 SECONDS (11.8-14.3) 03/01/23 16:28 INR Target Range - 03/01/23 16:28 INR 1.19 (0.8-1.3) 03/01/23 16:28 APTT 33.9 SECONDS (22.9-36.5) 03/01/23 16:28 PTT Comment - 03/01/23 16:28 Sodium 130 mmol/L (136-145) L 03/06/23 06:37 Corrected Sodium TNP 03/06/23 06:37 Potassium 4.1 mmol/L (3.5-5.1) 03/06/23 06:37 Chloride 96 mmol/L (98-107) L 03/06/23 06:37 Carbon Dioxide 29.2 mmol/L (21-32) 03/06/23 06:37 BUN 13 mg/dL (7-18) 03/06/23 06:37 Creatinine 0.60 mg/dL (0.55-1.02) 03/06/23 06:37 Est GFR (MDRD) Af Amer > 60 (>60) 03/06/23 06:37 Est GFR (MDRD) Non-Af > 60 (>60) 03/06/23 06:37 Glucose 91 mg/dL (65-99) 03/06/23 06:37 Lactic Acid 1.3 mmol/L (0.4-2.0) 03/01/23 18:20 Calcium 7.9 mg/dL (8.5-10.1) L 03/06/23 06:37 Corrected Calcium 8.7 mg/dL (8.5-10.1) 03/06/23 06:37 Magnesium 1.9 mg/dL (2.0-2.9) L 03/06/23 06:37 Total Bilirubin 0.80 mg/dL (0.2-1.0) 03/06/23 06:37 AST 22 Units/L (15-37) 03/06/23 06:37 ALT 20 Units/L (12-78) 03/06/23 06:37 Alkaline Phosphatase 48 Units/L (46-116) 03/06/23 06:37 Ammonia < 10 umol/L (11-32) L 03/01/23 18:20 Creatine Kinase 66 Units/L (26-192) 03/02/23 19:55 Troponin I High Sens 57.1 ng/L (4.0-60.0) 03/05/23 05:28 B-Natriuretic Peptide 486 pg/mL (0-79) H 03/06/23 06:37 Total Protein 6.0 g/dL (6.4-8.2) L 03/06/23 06:37 Albumin 3.0 g/dL (3.4-5.0) L 03/06/23 06:37 Globulin 3.0 g/dL (2.5-4.5) 03/06/23 06:37 Albumin/Globulin Ratio 1.0 Ratio (1.1-2.1) L 03/06/23 06:37 Specimen Type Catherized urine 03/01/23 16:48 Urine Color Straw (YELLOW) 03/01/23 16:48 Urine Appearance Clear (CLEAR) 03/01/23 16:48 Urine pH 6.0 (5.0 - 8.0) 03/01/23 16:48 Ur Specific [place] 1.020 (1.000-1.030) 03/01/23 16:48 Urine Protein Negative (NEGATIVE) 03/01/23 16:48 Urine Glucose (UA) Negative (NEGATIVE) 03/01/23 16:48 Urine Ketones Negative (NEGATIVE) 03/01/23 16:48 Urine Blood 1+ (NEGATIVE) 03/01/23 16:48 Urine Nitrite Negative (NEGATIVE) 03/01/23 16:48 Urine Bilirubin Negative (NEGATIVE) 03/01/23 16:48 Urine Urobilinogen Normal (NORMAL) 03/01/23 16:48 Ur Leukocyte Esterase Negative (NEGATIVE) 03/01/23 16:48 Urine RBC 0-2 /HPF (0-3) 03/01/23 16:48 Urine WBC None seen /HPF (0-5) 03/01/23 16:48 Ur Squamous Epith Cells Negative /HPF (NEGATIVE) 03/01/23 16:48 Urine Bacteria Negative /HPF (NEGATIVE) 03/01/23 16:48 Ur Culture Indicated? No/not indicated 03/01/23 16:48 SARS-CoV-2 (PCR) Negative (NEGATIVE) 03/02/23 10:45 Influenza Type A (PCR) Negative (NEGATIVE) 03/02/23 10:45 Influenza Type B (PCR) Negative (NEGATIVE) 03/02/23 10:45 RSV (PCR) Negative (NEGATIVE) 03/02/23 10:45 Resp Viral Panel (PCR) See scanned report 03/02/23 10:29 Plan (1) CHF exacerbation: Status: Acute Qualifiers: Heart failure type: systolic Qualified Code(s): I50.23 - Acute on chronic systolic (congestive) heart failure (2) Pneumonia: Status: Acute Qualifiers: Laterality: unspecified laterality Lung location: unspecified part of lung Pneumonia type: due to unspecified organism Qualified Code(s): J18.9 - Pneumonia, unspecified organism (3) Acute alteration in mental status: Status: Acute (4) Urinary tract infection: Status: Acute Qualifiers: Hematuria presence: without hematuria Urinary tract infection type: site unspecified Qualified Code(s): N39.0 - Urinary tract infection, site not specified (5) CAD (coronary artery disease): Status: Acute Qualifiers: Associated angina: unspecified whether angina present Coronary Disease- Associated Artery/Lesion type: unspecified vessel or lesion type [place] vs. transplanted heart: unspecified whether [place] or transplanted heart Qualified Code(s): I25.10 - Atherosclerotic heart disease of [place] coronary artery without angina pectoris (6) A-fib: Status: Acute Qualifiers: Atrial fibrillation type: unspecified Qualified Code(s): I48.91 - Unspecified atrial fibrillation
[2023-03-06] MEDS: LASIX PO SCH (11:48)
[2023-03-06] MEDS: XOPENEX 1.25 MG/3 ML NEBULE NEB SCH ×3 (14:00→20:55)
[2023-03-06] MEDS: SEROquel TAB 25 mg PO SCH (20:33)
[2023-03-06] MEDS: ZOCOR TAB 20 MG PO SCH (20:33)
[2023-03-07] MEDS: XOPENEX 1.25 MG/3 ML NEBULE NEB SCH ×3 (05:09→20:45)
[2023-03-07 06:18] LABS: BASOPHILS % (AUTO) 0.1 % (0.2-1.0); EOSINOPHILS # (AUTO) 0.1 x10^3/uL (0.0-0.2); HEMATOCRIT 33.7 % (36.0-47.0); HEMOGLOBIN 11.2 g/dL (12.0-16.0); LYMPHOCYTES # (AUTO) 0.3 X10^3/uL (1.3-2.9); LYMPHOCYTES % (AUTO) 2.3 % (21.0-51.0); MEAN CORPUSCULAR HEMOGLOBIN 30.1 pg (27.0-34.0); MEAN CORPUSCULAR HGB CONC 33.3 g/dL (33.0-35.0); MEAN CORPUSCULAR VOLUME 90.3 fL (80.0-100.0); MONOCYTES # (AUTO) 0.4 x10^3/uL (0.3-0.8); MONOCYTES % (AUTO) 3.1 % (0.0-13.0); NEUTROPHILS # (AUTO) 12.4 x10^3/uL (2.2-4.8); NEUTROPHILS % (AUTO) 93.5 % (42.0-75.0); PLATELET COUNT 244 X10^3/uL (150.0-450.0); RED BLOOD COUNT 3.73 X10^6/uL (3.5-5.4); RED CELL DISTRIBUTION WIDTH 13.9 % (11.6-16.5); WHITE BLOOD COUNT 13.3 X10^3/uL (3.6-10.0)
[2023-03-07 06:24] LABS: ALANINE AMINOTRANSFERASE 18 Units/L (12-78); ALBUMIN 3.1 g/dL (3.4-5.0); ALKALINE PHOSPHATASE 49 Units/L (46-116); ASPARTATE AMINO TRANSFERASE 19 Units/L (15-37); BLOOD UREA NITROGEN 16 mg/dL (7-18); CALCIUM 8.1 mg/dL (8.5-10.1); CARBON DIOXIDE 30.8 mmol/L (21-32); CHLORIDE 92 mmol/L (98-107); COR CA(FOR HYPOALB) 8.8 mg/dL (8.5-10.1); GLUCOSE 101 mg/dL (65-99); MAGNESIUM 1.8 mg/dL (2.0-2.9); POTASSIUM 3.1 mmol/L (3.5-5.1); SODIUM 130 mmol/L (136-145); TOTAL PROTEIN 6.3 g/dL (6.4-8.2); eGFR NON BLACK RACES > 60 (>60)
[2023-03-07] MEDS ORDERED: CONSULT PHARMACY - POTASSIUM & MAGNESIUM XX SCH (07:00)
[2023-03-07 07:06] LABS: PLATELET MORPHOLOGY COMMENT NORMAL (NORMAL)
[2023-03-07] MEDS: INVanz INJ 1 GRAM VIAL 1 G in NS 100 ML IV 100 ML IV SCH (09:09)
[2023-03-07] MEDS: ELIQUIS PO SCH ×2 (09:10→20:52)
[2023-03-07] MEDS: FOLIC ACID TAB 1 MG PO SCH (09:10)
[2023-03-07] MEDS: BENICAR PO SCH (09:10)
[2023-03-07] MEDS: LASIX PO SCH (09:10)
[2023-03-07] MEDS: ROBITUSSIN DM PO SCH ×4 (09:10→20:51)
[2023-03-07] MEDS: VSL#3 PO SCH (09:11)
[2023-03-07] MEDS: SYNTHROID 112 mcg TAB PO SCH (09:11)
[2023-03-07] MEDS: K-DUR TAB 20 MEQ PO SCH ×2 (09:11→11:32)
[2023-03-07] MEDS: MAG-OX TAB PO SCH ×3 (09:11→20:51)
[2023-03-07] MEDS: TOPROL XL PO SCH (09:11)
[2023-03-07] MEDS: FLONASE NASAL SPRAY ENOSTRIL SCH (09:11)
[2023-03-07] MEDS: MACROBID CAP 100 MG EXT REL PO SCH ×2 (09:11→20:52)
[2023-03-07] MEDS: CLARITIN PO SCH (09:11)
--- NOTE | 2023-03-07 11:47 | PCM.PROG ---
Progress Note Progress Note for Day of Date of Exam: 03/07/23 Subjective Subjective: Patient seen at bedside, no acute events overnight. She denies any complaints today. She is being treated for AMS, CHF exacerbation and pneumonia. She is currently on IV antibiotics. She is more awake/alert this AM. She did eat most of her breakfast. Labs/imaging reviewed - Hgb 11.2 Na 130 K 3.1 - Blood Cx and Urine Cx: no growth - CXR 03/06/23: Findings consistent with slight progression of CHF/edema. Associated pneumonia may be present. Plan: Continue current treatment with IV antibiotics.Replace K as per protocol. Continue lasix. Monitor I/Os. PT/OT as tolerated. Monitor AM labs/imaging. CM to work on placement to rehab. Past Medical Family Social History Past Med/Fam/Surg Hx: No changes since H&P Allergies: Allergies amoxicillin Allergy (Unknown, Verified 03/01/23 22:41) clarithromycin [From Biaxin] Allergy (Unknown, Verified 03/01/23 22:41) Reason: Drug allergy penicillin V Allergy (Unknown, Verified 03/01/23 22:41) Reason: Drug allergy Review of Systems ROS: No change since H&P Vital Signs and I&O's Vital Signs: Vital Signs Temperature 98.5 F Temperature 99 F Pulse Rate [Apical] 87 Pulse Rate [Apical] 70 Respiratory Rate 18 Respiratory Rate 20 Blood Pressure [Left Arm] 128/61 Blood Pressure [Left Arm] 168/67 O2 Sat by Pulse Oximetry 90 O2 Sat by Pulse Oximetry 97 Intake and Output: Intake & Output 03/04/23 03/05/23 03/06/23 03/07/23 23:59 23:59 23:59 23:59 Intake Total 1828 / 1828 2654 / 2654 1813 / 1813 220 / 220 Output Total 5100 / 5100 200 / 200 Balance -3272 / -3272 2454 / 2454 1813 Physical Exam Oriented: Person Eyes: Normal Ear: Normal Nose: Normal Throat: Normal Respiratory: Diminished Cardiovascular: Irregular and Murmur Auscultation: Bowel Sounds: Normal Tenderness: Normal Skin: Normal Musculoskeletal: Right, Left, Knee and Tender Mood Description: Calm Speech Pattern: Clear Laboratory and Diagnostics 03/07/23 05:19 03/07/23 05:19 Labs: 03/01/23 17:23 Blood Blood Culture - Final 03/01/23 17:18 Blood Blood Culture - Final 03/01/23 16:48 Urine,Clean Catch Urine Culture - Final Laboratory WBC 13.3 X10^3/uL (3.6-10.0) H 03/07/23 05:19 RBC 3.73 X10^6/uL (3.5-5.4) 03/07/23 05:19 Hgb 11.2 g/dL (12.0-16.0) L 03/07/23 05:19 Hct 33.7 % (36.0-47.0) L 03/07/23 05:19 MCV 90.3 fL (80.0-100.0) 03/07/23 05:19 MCH 30.1 pg (27.0-34.0) 03/07/23 05:19 MCHC 33.3 g/dL (33.0-35.0) 03/07/23 05:19 RDW 13.9 % (11.6-16.5) 03/07/23 05:19 Plt Count 244 X10^3/uL (150.0-450.0) 03/07/23 05:19 Plt Count Comment Adequate (ADEQUATE) 03/07/23 05:19 MPV 9.0 fL (7.4-11.0) 03/07/23 05:19 Neut % (Auto) 93.5 % (42.0-75.0) H 03/07/23 05:19 Lymph % (Auto) 2.3 % (21.0-51.0) L 03/07/23 05:19 [place] % (Auto) 3.1 % (0.0-13.0) 03/07/23 05:19 Eos % (Auto) 1.0 % (0.9-2.9) 03/07/23 05:19 Baso % (Auto) 0.1 % (0.2-1.0) L 03/07/23 05:19 Neut # (Auto) 12.4 x10^3/uL (2.2-4.8) H 03/07/23 05:19 Lymph # (Auto) 0.3 X10^3/uL (1.3-2.9) L 03/07/23 05:19 [place] # (Auto) 0.4 x10^3/uL (0.3-0.8) 03/07/23 05:19 Eos # (Auto) 0.1 x10^3/uL (0.0-0.2) 03/07/23 05:19 Baso # (Auto) 0.0 X10^3/uL (0.0-0.1) 03/07/23 05:19 Absolute Nucleated RBC 0.0 /100WBC 03/07/23 05:19 Total Counted 100 03/07/23 05:19 Neutrophils % (Manual) 94 % (39-76) H 03/07/23 05:19 Lymphocytes % (Manual) 4 % (13-43) L 03/07/23 05:19 Monocytes % (Manual) 2 % (4-9) L 03/07/23 05:19 Plt Morphology Comment Normal (NORMAL) 03/07/23 05:19 RBC Morphology Normal (NORMAL) 03/07/23 05:19 PT 14.9 SECONDS (11.8-14.3) 03/01/23 16:28 INR Target Range - 03/01/23 16:28 INR 1.19 (0.8-1.3) 03/01/23 16:28 APTT 33.9 SECONDS (22.9-36.5) 03/01/23 16:28 PTT Comment - 03/01/23 16:28 Sodium 130 mmol/L (136-145) L 03/07/23 05:19 Corrected Sodium TNP 03/07/23 05:19 Potassium 3.1 mmol/L (3.5-5.1) L 03/07/23 05:19 Chloride 92 mmol/L (98-107) L 03/07/23 05:19 Carbon Dioxide 30.8 mmol/L (21-32) 03/07/23 05:19 BUN 16 mg/dL (7-18) 03/07/23 05:19 Creatinine 0.80 mg/dL (0.55-1.02) 03/07/23 05:19 Est GFR (MDRD) Af Amer > 60 (>60) 03/07/23 05:19 Est GFR (MDRD) Non-Af > 60 (>60) 03/07/23 05:19 Glucose 101 mg/dL (65-99) H 03/07/23 05:19 Lactic Acid 1.3 mmol/L (0.4-2.0) 03/01/23 18:20 Calcium 8.1 mg/dL (8.5-10.1) L 03/07/23 05:19 Corrected Calcium 8.8 mg/dL (8.5-10.1) 03/07/23 05:19 Magnesium 1.8 mg/dL (2.0-2.9) L 03/07/23 05:19 Total Bilirubin 1.00 mg/dL (0.2-1.0) 03/07/23 05:19 AST 19 Units/L (15-37) 03/07/23 05:19 ALT 18 Units/L (12-78) 03/07/23 05:19 Alkaline Phosphatase 49 Units/L (46-116) 03/07/23 05:19 Ammonia < 10 umol/L (11-32) L 03/01/23 18:20 Creatine Kinase 66 Units/L (26-192) 03/02/23 19:55 Troponin I High Sens 57.1 ng/L (4.0-60.0) 03/05/23 05:28 B-Natriuretic Peptide 486 pg/mL (0-79) H 03/06/23 06:37 Total Protein 6.3 g/dL (6.4-8.2) L 03/07/23 05:19 Albumin 3.1 g/dL (3.4-5.0) L 03/07/23 05:19 Globulin 3.2 g/dL (2.5-4.5) 03/07/23 05:19 Albumin/Globulin Ratio 1.0 Ratio (1.1-2.1) L 03/07/23 05:19 Specimen Type Catherized urine 03/01/23 16:48 Urine Color Straw (YELLOW) 03/01/23 16:48 Urine Appearance Clear (CLEAR) 03/01/23 16:48 Urine pH 6.0 (5.0 - 8.0) 03/01/23 16:48 Ur Specific [place] 1.020 (1.000-1.030) 03/01/23 16:48 Urine Protein Negative (NEGATIVE) 03/01/23 16:48 Urine Glucose (UA) Negative (NEGATIVE) 03/01/23 16:48 Urine Ketones Negative (NEGATIVE) 03/01/23 16:48 Urine Blood 1+ (NEGATIVE) 03/01/23 16:48 Urine Nitrite Negative (NEGATIVE) 03/01/23 16:48 Urine Bilirubin Negative (NEGATIVE) 03/01/23 16:48 Urine Urobilinogen Normal (NORMAL) 03/01/23 16:48 Ur Leukocyte Esterase Negative (NEGATIVE) 03/01/23 16:48 Urine RBC 0-2 /HPF (0-3) 03/01/23 16:48 Urine WBC None seen /HPF (0-5) 03/01/23 16:48 Ur Squamous Epith Cells Negative /HPF (NEGATIVE) 03/01/23 16:48 Urine Bacteria Negative /HPF (NEGATIVE) 03/01/23 16:48 Ur Culture Indicated? No/not indicated 03/01/23 16:48 SARS-CoV-2 (PCR) Negative (NEGATIVE) 03/02/23 10:45 Influenza Type A (PCR) Negative (NEGATIVE) 03/02/23 10:45 Influenza Type B (PCR) Negative (NEGATIVE) 03/02/23 10:45 RSV (PCR) Negative (NEGATIVE) 03/02/23 10:45 Resp Viral Panel (PCR) See scanned report 03/02/23 10:29 Plan (1) Hypokalemia: Status: Acute (2) CHF exacerbation: Status: Acute Qualifiers: Heart failure type: systolic Qualified Code(s): I50.23 - Acute on chronic systolic (congestive) heart failure (3) Pneumonia: Status: Acute Qualifiers: Laterality: unspecified laterality Lung location: unspecified part of lung Pneumonia type: due to unspecified organism Qualified Code(s): J18.9 - Pneumonia, unspecified organism (4) Acute alteration in mental status: Status: Acute (5) Urinary tract infection: Status: Acute Qualifiers: Hematuria presence: without hematuria Urinary tract infection type: site unspecified Qualified Code(s): N39.0 - Urinary tract infection, site not specified (6) CAD (coronary artery disease): Status: Acute Qualifiers: Associated angina: unspecified whether angina present Coronary Disease- Associated Artery/Lesion type: unspecified vessel or lesion type [place] vs. transplanted heart: unspecified whether [place] or transplanted heart Qualified Code(s): I25.10 - Atherosclerotic heart disease of [place] coronary artery without angina pectoris (7) A-fib: Status: Acute Qualifiers: Atrial fibrillation type: unspecified Qualified Code(s): I48.91 - Uns pecified atrial fibrillation
[2023-03-07] MEDS: TYLENOL 325 MG TAB PO PRN (18:16)
[2023-03-07] MEDS: SEROquel TAB 25 mg PO SCH (19:46)
[2023-03-07] MEDS: ZOCOR TAB 20 MG PO SCH (20:52)
[2023-03-08] MEDS: XOPENEX 1.25 MG/3 ML NEBULE NEB SCH ×3 (05:46→21:00)
[2023-03-08 06:11] LABS: BASOPHILS % (AUTO) 0.4 % (0.2-1.0); EOSINOPHILS # (AUTO) 0.8 x10^3/uL (0.0-0.2); EOSINOPHILS % (AUTO) 10.2 % (0.9-2.9); HEMATOCRIT 31.7 % (36.0-47.0); HEMOGLOBIN 10.7 g/dL (12.0-16.0); LYMPHOCYTES # (AUTO) 0.6 X10^3/uL (1.3-2.9); MEAN CORPUSCULAR HEMOGLOBIN 30.4 pg (27.0-34.0); MEAN CORPUSCULAR HGB CONC 33.8 g/dL (33.0-35.0); MEAN CORPUSCULAR VOLUME 89.9 fL (80.0-100.0); MONOCYTES # (AUTO) 0.5 x10^3/uL (0.3-0.8); MONOCYTES % (AUTO) 6.2 % (0.0-13.0); NEUTROPHILS # (AUTO) 6.2 x10^3/uL (2.2-4.8); NEUTROPHILS % (AUTO) 76.2 % (42.0-75.0); PLATELET COUNT 227 X10^3/uL (150.0-450.0); RED BLOOD COUNT 3.52 X10^6/uL (3.5-5.4); RED CELL DISTRIBUTION WIDTH 13.8 % (11.6-16.5); WHITE BLOOD COUNT 8.1 X10^3/uL (3.6-10.0)
[2023-03-08 06:42] LABS: ALANINE AMINOTRANSFERASE 26 Units/L (12-78); ALBUMIN 2.8 g/dL (3.4-5.0); ALKALINE PHOSPHATASE 44 Units/L (46-116); ASPARTATE AMINO TRANSFERASE 31 Units/L (15-37); BLOOD UREA NITROGEN 22 mg/dL (7-18); CALCIUM 8.2 mg/dL (8.5-10.1); CARBON DIOXIDE 29.8 mmol/L (21-32); CHLORIDE 95 mmol/L (98-107); COR CA(FOR HYPOALB) 9.2 mg/dL (8.5-10.1); CREATININE 0.72 mg/dL (0.55-1.02); GLUCOSE 91 mg/dL (65-99); POTASSIUM 3.9 mmol/L (3.5-5.1); SODIUM 129 mmol/L (136-145); TOTAL PROTEIN 5.7 g/dL (6.4-8.2); eGFR NON BLACK RACES > 60 (>60)
[2023-03-08] MEDS ORDERED: VITAMIN D (1.25MG) PO SCH (07:52)
[2023-03-08] MEDS: ELIQUIS PO SCH ×3 (09:51→21:55)
[2023-03-08] MEDS: SYNTHROID 112 mcg TAB PO SCH (09:51)
[2023-03-08] MEDS: TOPROL XL PO SCH (09:52)
[2023-03-08] MEDS: CLARITIN PO SCH (09:52)
[2023-03-08] MEDS: ROBITUSSIN DM PO SCH ×5 (09:52→21:54)
[2023-03-08] MEDS: MACROBID CAP 100 MG EXT REL PO SCH ×3 (09:52→21:54)
[2023-03-08] MEDS: FOLIC ACID TAB 1 MG PO SCH (09:52)
[2023-03-08] MEDS: BENICAR PO SCH (09:52)
[2023-03-08] MEDS: VSL#3 PO SCH (09:52)
[2023-03-08] MEDS: MAG-OX TAB PO SCH ×3 (09:52→21:54)
[2023-03-08] MEDS: INVanz INJ 1 GRAM VIAL 1 G in NS 100 ML IV 100 ML IV SCH (09:53)
[2023-03-08] MEDS: FLONASE NASAL SPRAY ENOSTRIL SCH (09:53)
[2023-03-08] MEDS ORDERED: SEROquel TAB 25 mg PO ONE (12:11)
--- NOTE | 2023-03-08 15:36 | RAD ---
EXAM:CHEST, 1 VIEWHISTORY:Shortness of breathCOMPARISON:03/06/2023FINDINGS:The trachea is midline. The cardiac silhouette is enlarged with a tortuous thoracic aorta . Increased interstitial changes with prominent vascular markings are observed consistent with underlying but slightly improving CHF.. The bony thorax is unremarkable.IMPRESSION:Increased interstitial changes with prominent vascular markings are observed consistent with underlying but slightly improving CHF.THIS IS AN ELECTRONICALLY VERIFIED FINAL REPORT03/08/2023 3:32 PM - Electronically signed by Marquise Marin MD
[2023-03-08] MEDS: SEROquel TAB 25 mg PO SCH ×2 (20:11→21:55)
[2023-03-08] MEDS: ZOCOR TAB 20 MG PO SCH ×2 (20:11→21:55)
[2023-03-09] MEDS: ROBITUSSIN DM PO SCH ×5 (02:00→20:41)
[2023-03-09] MEDS: MACROBID CAP 100 MG EXT REL PO SCH ×3 (02:00→20:41)
[2023-03-09] MEDS: MAG-OX TAB PO SCH ×3 (02:00→20:40)
[2023-03-09] MEDS: SEROquel TAB 25 mg PO SCH ×3 (02:00→20:40)
[2023-03-09] MEDS: ELIQUIS PO SCH ×3 (02:00→20:40)
[2023-03-09] MEDS: ZOCOR TAB 20 MG PO SCH ×2 (02:00→20:40)
[2023-03-09] MEDS: XOPENEX 1.25 MG/3 ML NEBULE NEB SCH ×4 (05:50→21:27)
[2023-03-09 06:40] LABS: BASOPHILS % (AUTO) 0.3 % (0.2-1.0); EOSINOPHILS # (AUTO) 0.3 x10^3/uL (0.0-0.2); EOSINOPHILS % (AUTO) 3.7 % (0.9-2.9); HEMATOCRIT 31.9 % (36.0-47.0); HEMOGLOBIN 10.7 g/dL (12.0-16.0); LYMPHOCYTES # (AUTO) 0.7 X10^3/uL (1.3-2.9); LYMPHOCYTES % (AUTO) 8.7 % (21.0-51.0); MEAN CORPUSCULAR HGB CONC 33.4 g/dL (33.0-35.0); MEAN CORPUSCULAR VOLUME 89.8 fL (80.0-100.0); MEAN PLATELET VOLUME 8.8 fL (7.4-11.0); MONOCYTES # (AUTO) 0.7 x10^3/uL (0.3-0.8); MONOCYTES % (AUTO) 8.8 % (0.0-13.0); NEUTROPHILS % (AUTO) 78.5 % (42.0-75.0); PLATELET COUNT 260 X10^3/uL (150.0-450.0); RED BLOOD COUNT 3.55 X10^6/uL (3.5-5.4); RED CELL DISTRIBUTION WIDTH 13.8 % (11.6-16.5); WHITE BLOOD COUNT 7.6 X10^3/uL (3.6-10.0)
[2023-03-09 07:09] LABS: ALANINE AMINOTRANSFERASE 30 Units/L (12-78); ALBUMIN 2.9 g/dL (3.4-5.0); ALKALINE PHOSPHATASE 47 Units/L (46-116); ASPARTATE AMINO TRANSFERASE 29 Units/L (15-37); BLOOD UREA NITROGEN 13 mg/dL (7-18); CALCIUM 8.2 mg/dL (8.5-10.1); CARBON DIOXIDE 33.1 mmol/L (21-32); CHLORIDE 94 mmol/L (98-107); COR CA(FOR HYPOALB) 9.1 mg/dL (8.5-10.1); CREATININE 0.64 mg/dL (0.55-1.02); GLUCOSE 92 mg/dL (65-99); POTASSIUM 3.7 mmol/L (3.5-5.1); SODIUM 132 mmol/L (136-145); eGFR NON BLACK RACES > 60 (>60)
[2023-03-09] MEDS: FOLIC ACID TAB 1 MG PO SCH (09:50)
[2023-03-09] MEDS: VSL#3 PO SCH (09:50)
[2023-03-09] MEDS: BENICAR PO SCH (09:50)
[2023-03-09] MEDS: SYNTHROID 112 mcg TAB PO SCH (09:50)
[2023-03-09] MEDS: TOPROL XL PO SCH (09:50)
[2023-03-09] MEDS: FLONASE NASAL SPRAY ENOSTRIL SCH (09:50)
[2023-03-09] MEDS: INVanz INJ 1 GRAM VIAL 1 G in NS 100 ML IV 100 ML IV SCH (09:50)
[2023-03-09] MEDS: CLARITIN PO SCH (09:50)
--- NOTE | 2023-03-09 14:48 | RAD ---
HISTORYCHF Relevant Clinical InformationSTUDYCHEST, 1 [id number]/21/2023FINDINGSTrachea is midline. There is mild cardiomegaly. There is perihilar infiltrates with trace effusion, suspicious for pulmonary edema, there is persistent peribronchial thickening. Overall mild interval worsening, no pneumothoraxIMPRESSIONTrace bilateral pleural effusions with perihilar infiltrates and mild interstitial pulmonary edema with mild interval worsening since prior.Electronically signed by: Juanis Garrett (Mar 09, 2023 14:46:47)
[2023-03-09] MEDS: NYSTATIN POWDER TOP SCH ×2 (17:27→20:41)
[2023-03-10] MEDS: XOPENEX 1.25 MG/3 ML NEBULE NEB SCH ×3 (05:43→20:15)
[2023-03-10 06:25] LABS: BASOPHILS % (AUTO) 0.4 % (0.2-1.0); EOSINOPHILS # (AUTO) 0.7 x10^3/uL (0.0-0.2); EOSINOPHILS % (AUTO) 7.8 % (0.9-2.9); HEMOGLOBIN 11.1 g/dL (12.0-16.0); LYMPHOCYTES # (AUTO) 0.5 X10^3/uL (1.3-2.9); LYMPHOCYTES % (AUTO) 5.4 % (21.0-51.0); MEAN CORPUSCULAR HEMOGLOBIN 29.6 pg (27.0-34.0); MEAN CORPUSCULAR HGB CONC 32.7 g/dL (33.0-35.0); MEAN CORPUSCULAR VOLUME 90.3 fL (80.0-100.0); MEAN PLATELET VOLUME 8.5 fL (7.4-11.0); MONOCYTES # (AUTO) 0.9 x10^3/uL (0.3-0.8); MONOCYTES % (AUTO) 9.6 % (0.0-13.0); NEUTROPHILS # (AUTO) 7.1 x10^3/uL (2.2-4.8); NEUTROPHILS % (AUTO) 76.8 % (42.0-75.0); PLATELET COUNT 288 X10^3/uL (150.0-450.0); RED BLOOD COUNT 3.76 X10^6/uL (3.5-5.4); RED CELL DISTRIBUTION WIDTH 13.6 % (11.6-16.5); WHITE BLOOD COUNT 9.3 X10^3/uL (3.6-10.0)
[2023-03-10 06:47] LABS: ALANINE AMINOTRANSFERASE 22 Units/L (12-78); ALBUMIN 2.9 g/dL (3.4-5.0); ALKALINE PHOSPHATASE 50 Units/L (46-116); ASPARTATE AMINO TRANSFERASE 22 Units/L (15-37); BLOOD UREA NITROGEN 10 mg/dL (7-18); CALCIUM 8.2 mg/dL (8.5-10.1); CARBON DIOXIDE 31.6 mmol/L (21-32); CHLORIDE 96 mmol/L (98-107); COR CA(FOR HYPOALB) 9.1 mg/dL (8.5-10.1); CREATININE 0.56 mg/dL (0.55-1.02); GLUCOSE 86 mg/dL (65-99); POTASSIUM 3.5 mmol/L (3.5-5.1); SODIUM 134 mmol/L (136-145); TOTAL PROTEIN 6.1 g/dL (6.4-8.2); eGFR NON BLACK RACES > 60 (>60)
[2023-03-10] MEDS: BENICAR PO SCH (09:55)
[2023-03-10] MEDS: TOPROL XL PO SCH (09:55)
[2023-03-10] MEDS: VSL#3 PO SCH (09:55)
[2023-03-10] MEDS: INVanz INJ 1 GRAM VIAL 1 G in NS 100 ML IV 100 ML IV SCH (09:55)
[2023-03-10] MEDS: SYNTHROID 112 mcg TAB PO SCH (09:55)
[2023-03-10] MEDS: CLARITIN PO SCH (09:55)
[2023-03-10] MEDS: ELIQUIS PO SCH ×2 (09:55→21:54)
[2023-03-10] MEDS: FOLIC ACID TAB 1 MG PO SCH (09:55)
[2023-03-10] MEDS: MACROBID CAP 100 MG EXT REL PO SCH ×2 (09:55→21:54)
[2023-03-10] MEDS: ROBITUSSIN DM PO SCH ×4 (09:55→21:54)
[2023-03-10] MEDS: NYSTATIN POWDER TOP SCH ×2 (09:56→21:54)
[2023-03-10] MEDS: MAG-OX TAB PO SCH ×2 (09:56→21:54)
[2023-03-10] MEDS: FLONASE NASAL SPRAY ENOSTRIL SCH (09:56)
[2023-03-10] MEDS: SEROquel TAB 25 mg PO SCH ×2 (09:58→21:53)
--- NOTE | 2023-03-10 18:08 | PCM.PROG ---
Progress Note - Progress Note for Day of Date of Exam: 03/09/23 - Subjective Subjective: Patient seen at bedside, no acute events overnight. She denies any complaints today. She is being treated for AMS, CHF exacerbation and pneumonia. She is currently on IV antibiotics and Iv lasix with strict i&os.Her NA was decreased this am, so we held one dose of lasix since chest xray had some improvement. She is more awake/alert this AM. Currently no bed is available for swing bed status. Plan to DC home with home health and PT tomorrow if her labs are stable - Past Medical Family Social History Past Med/Fam/Surg Hx: No changes since H&P Allergies: Allergies amoxicillin Allergy (Unknown, Verified 03/01/23 22:41) clarithromycin [From Biaxin] Allergy (Unknown, Verified 03/01/23 22:41) Reason: Drug allergy penicillin V Allergy (Unknown, Verified 03/01/23 22:41) Reason: Drug allergy - Review of Systems ROS: No change since H&P - Vital Signs and I&O's Vital Signs: Vital Signs Temperature 98.1 F Temperature 97.3 F Pulse Rate [Apical] 71 Pulse Rate [Apical] 94 Respiratory Rate 20 Respiratory Rate 18 Blood Pressure [Left Arm] 143/95 Blood Pressure [Left Arm] 178/74 O2 Sat by Pulse Oximetry 89 O2 Sat by Pulse Oximetry 93 Intake and Output: Intake & Output 03/08/23 03/09/23 03/10/23 03/11/23 11:59 11:59 11:59 11:59 Intake Total 532 / 532 480 / 480 690 / 690 120 / 120 Balance 532 / 532 480 / 480 690 / 690 120 / 120 - Physical Exam Oriented: Person Eyes: Normal Ear: Normal Nose: Normal Throat: Normal Respiratory: Diminished Cardiovascular: Irregular, Murmur : Normal Auscultation: Bowel Sounds: Normal Tenderness: Normal Skin: Normal Musculoskeletal: Right, Left, Knee, Tender Mood Description: Calm Speech Pattern: Clear - Laboratory and Diagnostics Result Diagrams: 03/10/23 05:46 03/10/23 05:46 Labs: 03/01/23 17:23 Blood Blood Culture - Final 03/01/23 17:18 Blood Blood Culture - Final 03/01/23 16:48 Urine,Clean Catch Urine Culture - Final Laboratory WBC 9.3 X10^3/uL (3.6-10.0) 03/10/23 05:46 RBC 3.76 X10^6/uL (3.5-5.4) 03/10/23 05:46 Hgb 11.1 g/dL (12.0-16.0) L 03/10/23 05:46 Hct 34.0 % (36.0-47.0) L 03/10/23 05:46 MCV 90.3 fL (80.0-100.0) 03/10/23 05:46 MCH 29.6 pg (27.0-34.0) 03/10/23 05:46 MCHC 32.7 g/dL (33.0-35.0) L 03/10/23 05:46 RDW 13.6 % (11.6-16.5) 03/10/23 05:46 Plt Count 288 X10^3/uL (150.0-450.0) 03/10/23 05:46 Plt Count Comment Adequate (ADEQUATE) 03/07/23 05:19 MPV 8.5 fL (7.4-11.0) 03/10/23 05:46 Neut % (Auto) 76.8 % (42.0-75.0) H 03/10/23 05:46 Lymph % (Auto) 5.4 % (21.0-51.0) L 03/10/23 05:46 [place] % (Auto) 9.6 % (0.0-13.0) 03/10/23 05:46 Eos % (Auto) 7.8 % (0.9-2.9) H 03/10/23 05:46 Baso % (Auto) 0.4 % (0.2-1.0) 03/10/23 05:46 Neut # (Auto) 7.1 x10^3/uL (2.2-4.8) H 03/10/23 05:46 Lymph # (Auto) 0.5 X10^3/uL (1.3-2.9) L 03/10/23 05:46 [place] # (Auto) 0.9 x10^3/uL (0.3-0.8) H 03/10/23 05:46 Eos # (Auto) 0.7 x10^3/uL (0.0-0.2) H 03/10/23 05:46 Baso # (Auto) 0.0 X10^3/uL (0.0-0.1) 03/10/23 05:46 Absolute Nucleated RBC 0.0 /100WBC 03/10/23 05:46 Total Counted 100 03/07/23 05:19 Neutrophils % (Manual) 94 % (39-76) H 03/07/23 05:19 Lymphocytes % (Manual) 4 % (13-43) L 03/07/23 05:19 Monocytes % (Manual) 2 % (4-9) L 03/07/23 05:19 Plt Morphology Comment Normal (NORMAL) 03/07/23 05:19 RBC Morphology Normal (NORMAL) 03/07/23 05:19 PT 14.9 SECONDS (11.8-14.3) 03/01/23 16:28 INR Target Range - 03/01/23 16:28 INR 1.19 (0.8-1.3) 03/01/23 16:28 APTT 33.9 SECONDS (22.9-36.5) 03/01/23 16:28 PTT Comment - 03/01/23 16:28 Sodium 134 mmol/L (136-145) L 03/10/23 05:46 Corrected Sodium TNP 03/10/23 05:46 Potassium 3.5 mmol/L (3.5-5.1) 03/10/23 05:46 Chloride 96 mmol/L (98-107) L 03/10/23 05:46 Carbon Dioxide 31.6 mmol/L (21-32) 03/10/23 05:46 BUN 10 mg/dL (7-18) 03/10/23 05:46 Creatinine 0.56 mg/dL (0.55-1.02) 03/10/23 05:46 Est GFR (MDRD) Af Amer > 60 (>60) 03/10/23 05:46 Est GFR (MDRD) Non-Af > 60 (>60) 03/10/23 05:46 Glucose 86 mg/dL (65-99) 03/10/23 05:46 Lactic Acid 1.3 mmol/L (0.4-2.0) 03/01/23 18:20 Calcium 8.2 mg/dL (8.5-10.1) L 03/10/23 05:46 Corrected Calcium 9.1 mg/dL (8.5-10.1) 03/10/23 05:46 Magnesium 2.0 mg/dL (2.0-2.9) 03/08/23 05:21 Total Bilirubin 0.60 mg/dL (0.2-1.0) 03/10/23 05:46 AST 22 Units/L (15-37) 03/10/23 05:46 ALT 22 Units/L (12-78) 03/10/23 05:46 Alkaline Phosphatase 50 Units/L (46-116) 03/10/23 05:46 Ammonia < 10 umol/L (11-32) L 03/01/23 18:20 Creatine Kinase 66 Units/L (26-192) 03/02/23 19:55 Troponin I High Sens 57.1 ng/L (4.0-60.0) 03/05/23 05:28 B-Natriuretic Peptide 486 pg/mL (0-79) H 03/06/23 06:37 Total Protein 6.1 g/dL (6.4-8.2) L 03/10/23 05:46 Albumin 2.9 g/dL (3.4-5.0) L 03/10/23 05:46 Globulin 3.2 g/dL (2.5-4.5) 03/10/23 05:46 Albumin/Globulin Ratio 0.9 Ratio (1.1-2.1) L 03/10/23 05:46 Specimen Type Catherized urine 03/01/23 16:48 Urine Color Straw (YELLOW) 03/01/23 16:48 Urine Appearance Clear (CLEAR) 03/01/23 16:48 Urine pH 6.0 (5.0 - 8.0) 03/01/23 16:48 Ur Specific [place] 1.020 (1.000-1.030) 03/01/23 16:48 Urine Protein Negative (NEGATIVE) 03/01/23 16:48 Urine Glucose (UA) Negative (NEGATIVE) 03/01/23 16:48 Urine Ketones Negative (NEGATIVE) 03/01/23 16:48 Urine Blood 1+ (NEGATIVE) 03/01/23 16:48 Urine Nitrite Negative (NEGATIVE) 03/01/23 16:48 Urine Bilirubin Negative (NEGATIVE) 03/01/23 16:48 Urine Urobilinogen Normal (NORMAL) 03/01/23 16:48 Ur Leukocyte Esterase Negative (NEGATIVE) 03/01/23 16:48 Urine RBC 0-2 /HPF (0-3) 03/01/23 16:48 Urine WBC None seen /HPF (0-5) 03/01/23 16:48 Ur Squamous Epith Cells Negative /HPF (NEGATIVE) 03/01/23 16:48 Urine Bacteria Negative /HPF (NEGATIVE) 03/01/23 16:48 Ur Culture Indicated? No/not indicated 03/01/23 16:48 SARS-CoV-2 (PCR) Negative (NEGATIVE) 03/02/23 10:45 Influenza Type A (PCR) Negative (NEGATIVE) 03/02/23 10:45 Influenza Type B (PCR) Negative (NEGATIVE) 03/02/23 10:45 RSV (PCR) Negative (NEGATIVE) 03/02/23 10:45 Resp Viral Panel (PCR) See scanned report 03/02/23 10:29 - Plan (1) Pneumonia Status: Acute Qualifiers: Pneumonia type: due to unspecified organism Laterality: unspecified laterality Lung location: unspecified part of lung Qualified Code(s): J18.9 - Pneumonia, unspecified organism Plan: AM CHEST XRAY. RESP CONSULT. AIT SWAB AND ACUTE VIRAL RESP PANEL OBTAINED ON ADMISSION. CONFIRM HOME MEDICATION, RESUME ELIQUIS. CARIDAC MONITORING WITH SERIAL CE. BP CONTROL, IV ATBX THERAPY. BLOOD AND URINE CULTURES ORDERED ON ADMISSION (2) Abnormal cardiac enzyme level Status: Acute (3) Acute alteration in mental status Status: Acute (4) CAD (coronary artery disease) Status: Acute Qualifiers: Coronary Disease-Associated Artery/Lesion type: unspecified vessel or lesion type [place] vs. transplanted heart: unspecified whether [place] or transplanted heart Associated angina: unspecified whether angina present Qualified Code(s): I25.10 - Atherosclerotic heart disease of [place] coronary artery without angina pectoris (5) A-fib Status: Acute Qualifiers: Atrial fibrillation type: unspecified Qualified Code(s): I48.91 - Unspec ified atrial fibrillation (6) Urinary tract infection Status: Acute Qualifiers: Urinary tract infection type: site unspecified Hematuria presence: without hematuria Qualified Code(s): N39.0 - Urinary tract infection, site not specified
--- NOTE | 2023-03-10 18:10 | PCM.PROG ---
Progress Note - Progress Note for Day of Date of Exam: 03/10/23 - Subjective Subjective: Patient seen at bedside, no acute events overnight. She denies any complaints today. She is being treated for AMS, CHF exacerbation and pneumonia. She is currently on IV antibiotics. Pt has completed IV course of antibiotics for UTI. Pt has been to weak to ambulate. Family requested NH placement for rehab therapy. - Past Medical Family Social History Past Med/Fam/Surg Hx: No changes since H&P Allergies: Allergies amoxicillin Allergy (Unknown, Verified 03/01/23 22:41) clarithromycin [From Biaxin] Allergy (Unknown, Verified 03/01/23 22:41) Reason: Drug allergy penicillin V Allergy (Unknown, Verified 03/01/23 22:41) Reason: Drug allergy - Review of Systems ROS: No change since H&P - Vital Signs and I&O's Vital Signs: Vital Signs Temperature 98.1 F Temperature 97.3 F Pulse Rate [Apical] 71 Pulse Rate [Apical] 94 Respiratory Rate 20 Respiratory Rate 18 Blood Pressure [Left Arm] 143/95 Blood Pressure [Left Arm] 178/74 O2 Sat by Pulse Oximetry 89 O2 Sat by Pulse Oximetry 93 Intake and Output: Intake & Output 03/08/23 03/09/23 03/10/23 03/11/23 11:59 11:59 11:59 11:59 Intake Total 532 / 532 480 / 480 690 / 690 120 / 120 Balance 532 / 532 480 / 480 690 / 690 120 / 120 - Physical Exam Oriented: Person Eyes: Normal Ear: Normal Nose: Normal Throat: Normal Respiratory: Diminished Cardiovascular: Irregular, Murmur : Normal Auscultation: Bowel Sounds: Normal Tenderness: Normal Skin: Normal Musculoskeletal: Right, Left, Knee, Motor Deficit Mood Description: Calm Speech Pattern: Clear - Laboratory and Diagnostics Result Diagrams: 03/10/23 05:46 03/10/23 05:46 Labs: 03/01/23 17:23 Blood Blood Culture - Final 03/01/23 17:18 Blood Blood Culture - Final 03/01/23 16:48 Urine,Clean Catch Urine Culture - Final Laboratory WBC 9.3 X10^3/uL (3.6-10.0) 03/10/23 05:46 RBC 3.76 X10^6/uL (3.5-5.4) 03/10/23 05:46 Hgb 11.1 g/dL (12.0-16.0) L 03/10/23 05:46 Hct 34.0 % (36.0-47.0) L 03/10/23 05:46 MCV 90.3 fL (80.0-100.0) 03/10/23 05:46 MCH 29.6 pg (27.0-34.0) 03/10/23 05:46 MCHC 32.7 g/dL (33.0-35.0) L 03/10/23 05:46 RDW 13.6 % (11.6-16.5) 03/10/23 05:46 Plt Count 288 X10^3/uL (150.0-450.0) 03/10/23 05:46 Plt Count Comment Adequate (ADEQUATE) 03/07/23 05:19 MPV 8.5 fL (7.4-11.0) 03/10/23 05:46 Neut % (Auto) 76.8 % (42.0-75.0) H 03/10/23 05:46 Lymph % (Auto) 5.4 % (21.0-51.0) L 03/10/23 05:46 [place] % (Auto) 9.6 % (0.0-13.0) 03/10/23 05:46 Eos % (Auto) 7.8 % (0.9-2.9) H 03/10/23 05:46 Baso % (Auto) 0.4 % (0.2-1.0) 03/10/23 05:46 Neut # (Auto) 7.1 x10^3/uL (2.2-4.8) H 03/10/23 05:46 Lymph # (Auto) 0.5 X10^3/uL (1.3-2.9) L 03/10/23 05:46 [place] # (Auto) 0.9 x10^3/uL (0.3-0.8) H 03/10/23 05:46 Eos # (Auto) 0.7 x10^3/uL (0.0-0.2) H 03/10/23 05:46 Baso # (Auto) 0.0 X10^3/uL (0.0-0.1) 03/10/23 05:46 Absolute Nucleated RBC 0.0 /100WBC 03/10/23 05:46 Total Counted 100 03/07/23 05:19 Neutrophils % (Manual) 94 % (39-76) H 03/07/23 05:19 Lymphocytes % (Manual) 4 % (13-43) L 03/07/23 05:19 Monocytes % (Manual) 2 % (4-9) L 03/07/23 05:19 Plt Morphology Comment Normal (NORMAL) 03/07/23 05:19 RBC Morphology Normal (NORMAL) 03/07/23 05:19 PT 14.9 SECONDS (11.8-14.3) 03/01/23 16:28 INR Target Range - 03/01/23 16:28 INR 1.19 (0.8-1.3) 03/01/23 16:28 APTT 33.9 SECONDS (22.9-36.5) 03/01/23 16:28 PTT Comment - 03/01/23 16:28 Sodium 134 mmol/L (136-145) L 03/10/23 05:46 Corrected Sodium TNP 03/10/23 05:46 Potassium 3.5 mmol/L (3.5-5.1) 03/10/23 05:46 Chloride 96 mmol/L (98-107) L 03/10/23 05:46 Carbon Dioxide 31.6 mmol/L (21-32) 03/10/23 05:46 BUN 10 mg/dL (7-18) 03/10/23 05:46 Creatinine 0.56 mg/dL (0.55-1.02) 03/10/23 05:46 Est GFR (MDRD) Af Amer > 60 (>60) 03/10/23 05:46 Est GFR (MDRD) Non-Af > 60 (>60) 03/10/23 05:46 Glucose 86 mg/dL (65-99) 03/10/23 05:46 Lactic Acid 1.3 mmol/L (0.4-2.0) 03/01/23 18:20 Calcium 8.2 mg/dL (8.5-10.1) L 03/10/23 05:46 Corrected Calcium 9.1 mg/dL (8.5-10.1) 03/10/23 05:46 Magnesium 2.0 mg/dL (2.0-2.9) 03/08/23 05:21 Total Bilirubin 0.60 mg/dL (0.2-1.0) 03/10/23 05:46 AST 22 Units/L (15-37) 03/10/23 05:46 ALT 22 Units/L (12-78) 03/10/23 05:46 Alkaline Phosphatase 50 Units/L (46-116) 03/10/23 05:46 Ammonia < 10 umol/L (11-32) L 03/01/23 18:20 Creatine Kinase 66 Units/L (26-192) 03/02/23 19:55 Troponin I High Sens 57.1 ng/L (4.0-60.0) 03/05/23 05:28 B-Natriuretic Peptide 486 pg/mL (0-79) H 03/06/23 06:37 Total Protein 6.1 g/dL (6.4-8.2) L 03/10/23 05:46 Albumin 2.9 g/dL (3.4-5.0) L 03/10/23 05:46 Globulin 3.2 g/dL (2.5-4.5) 03/10/23 05:46 Albumin/Globulin Ratio 0.9 Ratio (1.1-2.1) L 03/10/23 05:46 Specimen Type Catherized urine 03/01/23 16:48 Urine Color Straw (YELLOW) 03/01/23 16:48 Urine Appearance Clear (CLEAR) 03/01/23 16:48 Urine pH 6.0 (5.0 - 8.0) 03/01/23 16:48 Ur Specific [place] 1.020 (1.000-1.030) 03/01/23 16:48 Urine Protein Negative (NEGATIVE) 03/01/23 16:48 Urine Glucose (UA) Negative (NEGATIVE) 03/01/23 16:48 Urine Ketones Negative (NEGATIVE) 03/01/23 16:48 Urine Blood 1+ (NEGATIVE) 03/01/23 16:48 Urine Nitrite Negative (NEGATIVE) 03/01/23 16:48 Urine Bilirubin Negative (NEGATIVE) 03/01/23 16:48 Urine Urobilinogen Normal (NORMAL) 03/01/23 16:48 Ur Leukocyte Esterase Negative (NEGATIVE) 03/01/23 16:48 Urine RBC 0-2 /HPF (0-3) 03/01/23 16:48 Urine WBC None seen /HPF (0-5) 03/01/23 16:48 Ur Squamous Epith Cells Negative /HPF (NEGATIVE) 03/01/23 16:48 Urine Bacteria Negative /HPF (NEGATIVE) 03/01/23 16:48 Ur Culture Indicated? No/not indicated 03/01/23 16:48 SARS-CoV-2 (PCR) Negative (NEGATIVE) 03/02/23 10:45 Influenza Type A (PCR) Negative (NEGATIVE) 03/02/23 10:45 Influenza Type B (PCR) Negative (NEGATIVE) 03/02/23 10:45 RSV (PCR) Negative (NEGATIVE) 03/02/23 10:45 Resp Viral Panel (PCR) See scanned report 03/02/23 10:29 - Plan (1) Pneumonia Status: Acute Qualifiers: Pneumonia type: due to unspecified organism Laterality: unspecified laterality Lung location: unspecified part of lung Qualified Code(s): J18.9 - Pneumonia, unspecified organism Plan: AM CHEST XRAY. RESP CONSULT. AIT SWAB AND ACUTE VIRAL RESP PANEL OBTAINED ON ADMISSION. CONFIRM HOME MEDICATION, RESUME ELIQUIS. CARIDAC MONITORING WITH SERIAL CE. BP CONTROL, IV ATBX THERAPY. BLOOD AND URINE CULTURE S ORDERED ON ADMISSION (2) Abnormal cardiac enzyme level Status: Acute (3) Acute alteration in mental status Status: Acute (4) CAD (coronary artery disease) Status: Acute Qualifiers: Coronary Disease-Associated Artery/Lesion type: unspecified vessel or lesion type [place] vs. transplanted heart: unspecified whether [place] or transplanted heart Associated angina: unspecified whether angina present Qualified Code(s): I25.10 - Atherosclerotic heart disease of [place] coronary artery without angina pectoris (5) A-fib Status: Acute Qualifiers: Atrial fibrillation type: unspecified Qualified Code(s): I48.91 - Unspecified atrial fibrillation (6) Urinary tract infection Status: Acute Qualifiers: Urinary tract infection type: site unspecified Hematuria presence: without hematuria Qualified Code(s): N39.0 - Urinary tract infection, site not specified
[2023-03-10] MEDS: ZOCOR TAB 20 MG PO SCH (21:54)
[2023-03-10] MEDS: K-DUR TAB 20 MEQ PO SCH (21:54)
[2023-03-11] MEDS: XOPENEX 1.25 MG/3 ML NEBULE NEB SCH ×3 (05:42→21:00)
[2023-03-11 06:30] LABS: BASOPHILS # (AUTO) 0.1 X10^3/uL (0.0-0.1); BASOPHILS % (AUTO) 0.5 % (0.2-1.0); EOSINOPHILS # (AUTO) 1.1 x10^3/uL (0.0-0.2); EOSINOPHILS % (AUTO) 10.1 % (0.9-2.9); HEMATOCRIT 35.5 % (36.0-47.0); HEMOGLOBIN 11.8 g/dL (12.0-16.0); LYMPHOCYTES # (AUTO) 0.6 X10^3/uL (1.3-2.9); LYMPHOCYTES % (AUTO) 5.3 % (21.0-51.0); MEAN CORPUSCULAR HGB CONC 33.3 g/dL (33.0-35.0); MEAN CORPUSCULAR VOLUME 90.1 fL (80.0-100.0); MEAN PLATELET VOLUME 8.5 fL (7.4-11.0); MONOCYTES # (AUTO) 0.6 x10^3/uL (0.3-0.8); MONOCYTES % (AUTO) 5.6 % (0.0-13.0); NEUTROPHILS # (AUTO) 8.8 x10^3/uL (2.2-4.8); NEUTROPHILS % (AUTO) 78.5 % (42.0-75.0); PLATELET COUNT 326 X10^3/uL (150.0-450.0); RED BLOOD COUNT 3.95 X10^6/uL (3.5-5.4); RED CELL DISTRIBUTION WIDTH 13.9 % (11.6-16.5); WHITE BLOOD COUNT 11.1 X10^3/uL (3.6-10.0)
[2023-03-11 06:36] LABS: ALANINE AMINOTRANSFERASE 26 Units/L (12-78); ALKALINE PHOSPHATASE 51 Units/L (46-116); ASPARTATE AMINO TRANSFERASE 26 Units/L (15-37); BLOOD UREA NITROGEN 11 mg/dL (7-18); CALCIUM 8.3 mg/dL (8.5-10.1); CARBON DIOXIDE 31.9 mmol/L (21-32); CHLORIDE 95 mmol/L (98-107); COR CA(FOR HYPOALB) 9.1 mg/dL (8.5-10.1); CREATININE 0.61 mg/dL (0.55-1.02); GLUCOSE 75 mg/dL (65-99); POTASSIUM 3.8 mmol/L (3.5-5.1); SODIUM 132 mmol/L (136-145); TOTAL PROTEIN 6.3 g/dL (6.4-8.2); eGFR NON BLACK RACES > 60 (>60)
[2023-03-11] MEDS ORDERED: NS 100 ML IV 100 ML ONE (10:41)
[2023-03-11] MEDS: SEROquel TAB 25 mg PO SCH ×2 (11:16→21:57)
[2023-03-11] MEDS: BENICAR PO SCH (11:17)
[2023-03-11] MEDS: CLARITIN PO SCH (11:17)
[2023-03-11] MEDS: ELIQUIS PO SCH ×2 (11:17→22:46)
[2023-03-11] MEDS: INVanz INJ 1 GRAM VIAL 1 G in NS 100 ML IV 100 ML IV SCH (11:18)
[2023-03-11] MEDS: FOLIC ACID TAB 1 MG PO SCH (11:18)
[2023-03-11] MEDS: FLONASE NASAL SPRAY ENOSTRIL SCH (11:18)
[2023-03-11] MEDS: MAG-OX TAB PO SCH ×2 (11:19→22:47)
[2023-03-11] MEDS: MACROBID CAP 100 MG EXT REL PO SCH ×2 (11:19→22:47)
[2023-03-11] MEDS: NYSTATIN POWDER TOP SCH ×2 (11:19→22:47)
[2023-03-11] MEDS: ROBITUSSIN DM PO SCH ×4 (11:19→22:48)
[2023-03-11] MEDS: TOPROL XL PO SCH (11:20)
[2023-03-11] MEDS: SYNTHROID 112 mcg TAB PO SCH (11:20)
[2023-03-11] MEDS: VSL#3 PO SCH (11:20)
[2023-03-11] MEDS: NYSTATIN SUSP MT SCH ×2 (15:12→22:48)
--- NOTE | 2023-03-11 15:25 | RAD ---
HISTORYpneumonia, a fib, ams, uti Relevant Clinical InformationSTUDYCHEST, 1 [id number] cardiomediastinal silhouette. Patchy bilateral lower lung opacities appear similar to prior. No visible pneumothorax or acute osseous finding.IMPRESSIONNo significant interval change.Electronically signed by: Uzair Oropeza (Mar 11, 2023 15:23:44)
[2023-03-11] MEDS ORDERED: BUTT CREAM (COMPOUND) ONE (17:16)
--- NOTE | 2023-03-11 18:16 | PCM.PROG ---
Progress Note - Progress Note for Day of Date of Exam: 03/11/23 - Subjective Subjective: She is being treated for AMS, CHF exacerbation and pneumonia. She is currently on IV antibiotics. Pt has completed IV course of antibiotics for UTI. Pt has been to weak to ambulate. Family requested NH placement for rehab therapy. Due to her worsened dementia we are now attempting permanent NH placement. Pt is getting seroquel 25mg q hs and continues to excessive daytime agitation and confusion. Pt has diffuse weakness and incontinence - Past Medical Family Social History Past Med/Fam/Surg Hx: No changes since H&P Allergies: Allergies amoxicillin Allergy (Unknown, Verified 03/01/23 22:41) clarithromycin [From Biaxin] Allergy (Unknown, Verified 03/01/23 22:41) Reason: Drug allergy penicillin V Allergy (Unknown, Verified 03/01/23 22:41) Reason: Drug allergy - Review of Systems ROS: No change since H&P - Vital Signs and I&O's Vital Signs: Vital Signs Temperature 98.6 F Temperature 97.0 F Pulse Rate [Apical] 92 Pulse Rate [Apical] 73 Respiratory Rate 18 Respiratory Rate 18 Blood Pressure [Left Arm] 161/76 Blood Pressure [Left Arm] 136/71 O2 Sat by Pulse Oximetry 92 O2 Sat by Pulse Oximetry 91 Intake and Output: Intake & Output 03/09/23 03/10/23 03/11/23 03/12/23 11:59 11:59 11:59 11:59 Intake Total 480 / 480 690 / 690 750 / 750 560 / 560 Balance 480 / 480 690 / 690 750 / 750 560 / 560 - Physical Exam Oriented: Person Eyes: Normal Ear: Normal Nose: Normal Throat: Normal Respiratory: Diminished Cardiovascular: Irregular, Murmur : Normal Auscultation: Bowel Sounds: Normal Tenderness: Normal Skin: Normal Musculoskeletal: Right, Left, Knee, Motor Deficit Mood Description: Calm Speech Pattern: Inappropriate - Laboratory and Diagnostics Result Diagrams: 03/11/23 05:29 03/11/23 05:29 Labs: 03/01/23 17:23 Blood Blood Culture - Final 03/01/23 17:18 Blood Blood Culture - Final 03/01/23 16:48 Urine,Clean Catch Urine Culture - Final Laboratory WBC 11.1 X10^3/uL (3.6-10.0) H 03/11/23 05:29 RBC 3.95 X10^6/uL (3.5-5.4) 03/11/23 05:29 Hgb 11.8 g/dL (12.0-16.0) L 03/11/23 05:29 Hct 35.5 % (36.0-47.0) L 03/11/23 05:29 MCV 90.1 fL (80.0-100.0) 03/11/23 05:29 MCH 30.0 pg (27.0-34.0) 03/11/23 05:29 MCHC 33.3 g/dL (33.0-35.0) 03/11/23 05:29 RDW 13.9 % (11.6-16.5) 03/11/23 05:29 Plt Count 326 X10^3/uL (150.0-450.0) 03/11/23 05:29 Plt Count Comment Adequate (ADEQUATE) 03/07/23 05:19 MPV 8.5 fL (7.4-11.0) 03/11/23 05:29 Neut % (Auto) 78.5 % (42.0-75.0) H 03/11/23 05:29 Lymph % (Auto) 5.3 % (21.0-51.0) L 03/11/23 05:29 [place] % (Auto) 5.6 % (0.0-13.0) 03/11/23 05:29 Eos % (Auto) 10.1 % (0.9-2.9) H 03/11/23 05:29 Baso % (Auto) 0.5 % (0.2-1.0) 03/11/23 05:29 Neut # (Auto) 8.8 x10^3/uL (2.2-4.8) H 03/11/23 05:29 Lymph # (Auto) 0.6 X10^3/uL (1.3-2.9) L 03/11/23 05:29 [place] # (Auto) 0.6 x10^3/uL (0.3-0.8) 03/11/23 05:29 Eos # (Auto) 1.1 x10^3/uL (0.0-0.2) H 03/11/23 05:29 Baso # (Auto) 0.1 X10^3/uL (0.0-0.1) 03/11/23 05:29 Absolute Nucleated RBC 0.0 /100WBC 03/11/23 05:29 Total Counted 100 03/07/23 05:19 Neutrophils % (Manual) 94 % (39-76) H 03/07/23 05:19 Lymphocytes % (Manual) 4 % (13-43) L 03/07/23 05:19 Monocytes % (Manual) 2 % (4-9) L 03/07/23 05:19 Plt Morphology Comment Normal (NORMAL) 03/07/23 05:19 RBC Morphology Normal (NORMAL) 03/07/23 05:19 PT 14.9 SECONDS (11.8-14.3) 03/01/23 16:28 INR Target Range - 03/01/23 16:28 INR 1.19 (0.8-1.3) 03/01/23 16:28 APTT 33.9 SECONDS (22.9-36.5) 03/01/23 16:28 PTT Comment - 03/01/23 16:28 Sodium 132 mmol/L (136-145) L 03/11/23 05:29 Corrected Sodium TNP 03/11/23 05:29 Potassium 3.8 mmol/L (3.5-5.1) 03/11/23 05:29 Chloride 95 mmol/L (98-107) L 03/11/23 05:29 Carbon Dioxide 31.9 mmol/L (21-32) 03/11/23 05:29 BUN 11 mg/dL (7-18) 03/11/23 05:29 Creatinine 0.61 mg/dL (0.55-1.02) 03/11/23 05:29 Est GFR (MDRD) Af Amer > 60 (>60) 03/11/23 05:29 Est GFR (MDRD) Non-Af > 60 (>60) 03/11/23 05:29 Glucose 75 mg/dL (65-99) 03/11/23 05:29 Lactic Acid 1.3 mmol/L (0.4-2.0) 03/01/23 18:20 Calcium 8.3 mg/dL (8.5-10.1) L 03/11/23 05:29 Corrected Calcium 9.1 mg/dL (8.5-10.1) 03/11/23 05:29 Magnesium 2.0 mg/dL (2.0-2.9) 03/08/23 05:21 Total Bilirubin 0.70 mg/dL (0.2-1.0) 03/11/23 05:29 AST 26 Units/L (15-37) 03/11/23 05:29 ALT 26 Units/L (12-78) 03/11/23 05:29 Alkaline Phosphatase 51 Units/L (46-116) 03/11/23 05:29 Ammonia < 10 umol/L (11-32) L 03/01/23 18:20 Creatine Kinase 66 Units/L (26-192) 03/02/23 19:55 Troponin I High Sens 57.1 ng/L (4.0-60.0) 03/05/23 05:28 B-Natriuretic Peptide 486 pg/mL (0-79) H 03/06/23 06:37 Total Protein 6.3 g/dL (6.4-8.2) L 03/11/23 05:29 Albumin 3.0 g/dL (3.4-5.0) L 03/11/23 05:29 Globulin 3.3 g/dL (2.5-4.5) 03/11/23 05:29 Albumin/Globulin Ratio 0.9 Ratio (1.1-2.1) L 03/11/23 05:29 Specimen Type Catherized urine 03/01/23 16:48 Urine Color Straw (YELLOW) 03/01/23 16:48 Urine Appearance Clear (CLEAR) 03/01/23 16:48 Urine pH 6.0 (5.0 - 8.0) 03/01/23 16:48 Ur Specific [place] 1.020 (1.000-1.030) 03/01/23 16:48 Urine Protein Negative (NEGATIVE) 03/01/23 16:48 Urine Glucose (UA) Negative (NEGATIVE) 03/01/23 16:48 Urine Ketones Negative (NEGATIVE) 03/01/23 16:48 Urine Blood 1+ (NEGATIVE) 03/01/23 16:48 Urine Nitrite Negative (NEGATIVE) 03/01/23 16:48 Urine Bilirubin Negative (NEGATIVE) 03/01/23 16:48 Urine Urobilinogen Normal (NORMAL) 03/01/23 16:48 Ur Leukocyte Esterase Negative (NEGATIVE) 03/01/23 16:48 Urine RBC 0-2 /HPF (0-3) 03/01/23 16:48 Urine WBC None seen /HPF (0-5) 03/01/23 16:48 Ur Squamous Epith Cells Negative /HPF (NEGATIVE) 03/01/23 16:48 Urine Bacteria Negative /HPF (NEGATIVE) 03/01/23 16:48 Ur Culture Indicated? No/not indicated 03/01/23 16:48 SARS-CoV-2 (PCR) Negative (NEGATIVE) 03/02/23 10:45 Influenza Type A (PCR) Negative (NEGATIVE) 03/02/23 10:45 Influenza Type B (PCR) Negative (NEGATIVE) 03/02/23 10:45 RSV (PCR) Negative (NEGATIVE) 03/02/23 10:45 Resp Viral Panel (PCR) See scanned report 03/02/23 10:29 - Plan (1) Pneumonia Status: Acute Qualifiers: Pneumonia type: due to unspecified organism Laterality: unspecified laterality Lung location: unspecified part of lung Qualified Code(s): J18.9 - Pneumonia, unspecified organism Plan: AM CHEST XRAY. RESP CONSULT. AIT SWAB AND ACUTE VIRAL RESP PANEL OBTAINED ON ADMISSION. CONFIRM HOME MEDICATION, RESUME ELIQUIS. CARIDAC MONITORING WITH SERIAL CE. BP CONTROL, IV ATBX THERAPY. BLOOD AND URINE CULTURES ORDERED ON ADMISSION (2) Abnormal cardiac enzyme level Status: Acute (3) Acute alteration in mental status Status: Acute (4) CAD (coronary artery disease) Status: Acute Qualifiers: Coronary Disease-Associated Artery/Lesion type: unspecified vessel or lesion type [place] vs. transplanted heart: unspecified whether [place] or transplanted heart Associated angina: unspecified whether angina present Qualified Code(s): I25.10 - Atherosclerotic heart disease of [place] coronary artery without angina pectoris (5) A-fib Status: Acute Qualifiers: Atrial fibrillation type: unspecified Qualified Code(s): I48.91 - Unspecified atrial fibrillation (6) Urinary tract infection Status: Acute Qualifiers: Urinary tract infection type: site unspecified Hematuria presence: without hematuria Qualified Code(s): N39.0 - Urinary tract infection, site not specified
[2023-03-11] MEDS: K-DUR TAB 20 MEQ PO SCH (22:46)
[2023-03-11] MEDS: ZOCOR TAB 20 MG PO SCH (22:48)
[2023-03-12] MEDS: XOPENEX 1.25 MG/3 ML NEBULE NEB SCH (06:00)
[2023-03-12 06:17] VITALS: O2SAT 93
[2023-03-12 06:37] LABS: BASOPHILS # (AUTO) 0.1 X10^3/uL (0.0-0.1); BASOPHILS % (AUTO) 0.5 % (0.2-1.0); EOSINOPHILS # (AUTO) 1.3 x10^3/uL (0.0-0.2); EOSINOPHILS % (AUTO) 12.1 % (0.9-2.9); HEMATOCRIT 34.8 % (36.0-47.0); HEMOGLOBIN 11.5 g/dL (12.0-16.0); LYMPHOCYTES # (AUTO) 1.4 X10^3/uL (1.3-2.9); LYMPHOCYTES % (AUTO) 12.8 % (21.0-51.0); MEAN CORPUSCULAR HEMOGLOBIN 29.6 pg (27.0-34.0); MEAN CORPUSCULAR VOLUME 89.9 fL (80.0-100.0); MEAN PLATELET VOLUME 8.6 fL (7.4-11.0); MONOCYTES # (AUTO) 0.6 x10^3/uL (0.3-0.8); MONOCYTES % (AUTO) 5.3 % (0.0-13.0); NEUTROPHILS # (AUTO) 7.7 x10^3/uL (2.2-4.8); NEUTROPHILS % (AUTO) 69.3 % (42.0-75.0); PLATELET COUNT 349 X10^3/uL (150.0-450.0); RED BLOOD COUNT 3.87 X10^6/uL (3.5-5.4); RED CELL DISTRIBUTION WIDTH 13.6 % (11.6-16.5); WHITE BLOOD COUNT 11.1 X10^3/uL (3.6-10.0)
[2023-03-12 06:52] LABS: ALANINE AMINOTRANSFERASE 18 Units/L (12-78); ALBUMIN 2.9 g/dL (3.4-5.0); ALKALINE PHOSPHATASE 50 Units/L (46-116); ASPARTATE AMINO TRANSFERASE 29 Units/L (15-37); BLOOD UREA NITROGEN 11 mg/dL (7-18); CARBON DIOXIDE 29.8 mmol/L (21-32); CHLORIDE 96 mmol/L (98-107); COR CA(FOR HYPOALB) 8.9 mg/dL (8.5-10.1); CREATININE 0.61 mg/dL (0.55-1.02); GLUCOSE 85 mg/dL (65-99); MAGNESIUM 1.8 mg/dL (2.0-2.9); POTASSIUM 3.5 mmol/L (3.5-5.1); SODIUM 133 mmol/L (136-145); eGFR NON BLACK RACES > 60 (>60)
[2023-03-12] MEDS ORDERED: CONSULT PHARMACY - POTASSIUM & MAGNESIUM XX SCH (07:00)
[2023-03-12] MEDS ORDERED: K-DUR TAB 20 MEQ PO SCH (09:00)
[2023-03-12] MEDS ORDERED: MAG-OX TAB PO SCH (09:00)
[2023-03-12] MEDS: BENICAR PO SCH (09:55)
[2023-03-12] MEDS: SYNTHROID 112 mcg TAB PO SCH (09:55)
[2023-03-12] MEDS: FOLIC ACID TAB 1 MG PO SCH (09:55)
[2023-03-12] MEDS: ELIQUIS PO SCH (09:55)
[2023-03-12] MEDS: MACROBID CAP 100 MG EXT REL PO SCH (09:55)
[2023-03-12] MEDS: NYSTATIN SUSP MT SCH (09:56)
[2023-03-12] MEDS: ROBITUSSIN DM PO SCH (09:56)
[2023-03-12] MEDS: TOPROL XL PO SCH (09:56)
[2023-03-12] MEDS: CLARITIN PO SCH (09:56)
[2023-03-12] MEDS: VSL#3 PO SCH (09:56)
[2023-03-12] MEDS: NYSTATIN POWDER TOP SCH (09:57)
[2023-03-12] MEDS: FLONASE NASAL SPRAY ENOSTRIL SCH (09:57)
[2023-03-12] MEDS: SEROquel TAB 25 mg PO SCH (09:58)
[2023-03-12 11:44] VITALS: PULSE 92; RESP 20; TEMP 97.6
[2023-03-12 11:45] VITALS: BP 150/80
== END 2023-03-12 11:56 | DRG 292 ==
LOC: ER 16:10 → MED/SURG 22:28
PROVIDERS: ADMIT Internal Medicine; ATTEND Internal Medicine
DX: I50.23 Acute on chronic systolic (congestive) heart failure; R26.89 Other abnormalities of gait and mobility; R40.4 Transient alteration of awareness; F03.911 Unspecified dementia, unspecified severity, with agitation; F91.8 Other conduct disorders; J13 Pneumonia due to Streptococcus pneumoniae; I11.0 Hypertensive heart disease with heart failure; Z73.89 Other problems related to life management difficulty; E87.6 Hypokalemia; Z20.822 Contact with and (suspected) exposure to COVID-19; Z79.01 Long term (current) use of anticoagulants; E03.8 Other specified hypothyroidism; N39.0 Urinary tract infection, site not specified; R77.8 Other specified abnormalities of plasma proteins; I25.10 Atherosclerotic heart disease of native coronary artery without angina pectoris; I48.91 Unspecified atrial fibrillation; F01.511 Vascular dementia, unspecified severity, with agitation